=== PATIENT | female | born 1970 | race Caucasian/White ===

== ENCOUNTER 2023-08-13 14:09 | Emergency (ER) | payer MEDICARE, SELFPAY ==
[2023-08-13 14:18] VITALS: BP 103/58; PULSE 73; RESP 18; TEMP 36.6; O2SAT 100; BMI 25.8
--- NOTE | 2023-08-13 14:27 | ED_ITS ---
HPI - General Adult General Chief complaint: Extremity Problem, Nontraumatic Stated complaint: HIP PAIN, RIGHT- NON TRAUMATIC Time Seen by Provider: 08/13/23 14:22 Source: patient Mode of arrival: walk-in Limitations: no limitations History of Present Illness HPI narrative: Patient is a 53-year-old female presents to the emergency department for pain in the right anterior hip and proximal thigh for the last several months. She states pain radiates around the right hip. She has a history of RA and wonders if it may be an exacerbation of her RA. 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 She denies any falls or injuries. No numbness or tingling. No medications taken prior to arrival today. Related Data Home Medications ?Medication ?Instructions ?Recorded ?Confirmed calcium carbonate 600 mg calcium 1,500 mg PO DAILY 08/13/23 08/13/23 (1,500 mg) tablet (Calcium) cholecalciferol (vitamin D3) 250 10,000 unit PO DAILY 08/13/23 08/13/23 mcg (10,000 unit) capsule citalopram 40 mg tablet 40 mg PO DAILY 08/13/23 08/13/23 levothyroxine 88 mcg tablet 88 mcg PO DAILY 08/13/23 08/13/23 mecobalamin (vitamin B12) 500 mcg 500 mcg PO DAILY 08/13/23 08/13/23 chewable tablet omeprazole 20 mg capsule,delayed 20 mg PO DAILY 08/13/23 08/13/23 release thiamine HCl (vitamin B1) 100 mg 100 mg PO TID 08/13/23 08/13/23 tablet Previous Rx's ?Medication ?Instructions ?Recorded methocarbamol 750 mg tablet 750 mg PO TID PRN pain #20 tabs 08/13/23 methylprednisolone 4 mg tablets in See Rx Instructions .Route 08/13/23 a dose pack (Medrol (Edin)) .COMPLEX #21 ea Allergies Allergy/AdvReac Type Severity Reaction Status Date / Time No Known Drug Allergies Allergy Verified 08/13/23 14:20 Review of Systems ROS Constitutional Denies: fever or chills Ears, nose, mouth, and throat Denies: throat pain Cardiovascular Denies: chest pain Respiratory Denies: shortness of breath Gastrointestinal Denies: nausea or vomiting Musculoskeletal Reports: extremity pain and joint pain; Denies: back pain, neck pain or extremity swelling Integumentary/Breast Denies: rash Neurological Denies: headache Hematologic/Lymphatic Denies: easy bruising or easy bleeding Exam Narrative Exam Narrative: Gen.: Awake, alert, in no distress Head: Normocephalic, atraumatic ENT: Moist mucous membranes Respiratory: No respiratory distress Extremities: Moves extremities equally, Patient with full range of motion at the right hip, normal dorsiflexion and plantarflexion in the bilateral feet with no decrease in sensation to the medial thighs, diffuse minimal tenderness of the right lateral hip Psych: Normal mood and affect Neuro: No focal neuro deficit Skin: Warm, dry, intact Constitutional Vital Signs, click to edit/add: Last Vital Signs Temp 97.8 F 08/13/23 14:18 Pulse 73 08/13/23 14:18 Resp 18 08/13/23 14:18 BP 103/58 08/13/23 14:18 Pulse Ox 100 08/13/23 14:18 O2 Del Method Room Air 08/13/23 14:18 Course Vital Signs Vital signs: Vital Signs Temperature 97.8 F 08/13/23 14:18 Pulse Rate 73 08/13/23 14:18 Respiratory Rate 18 08/13/23 14:18 Blood Pressure 103/58 08/13/23 14:18 Pulse Oximetry 100 08/13/23 14:18 Oxygen Delivery Method Room Air 08/13/23 14:18 Temperature 97.8 F 08/13/23 14:18 Pulse Rate 73 08/13/23 14:18 Respiratory Rate 18 08/13/23 14:18 Blood Pressure 103/58 08/13/23 14:18 Pulse Oximetry 100 08/13/23 14:18 Oxygen Delivery Method Room Air 08/13/23 14:18 Medical Decision Making MDM Narrative Medical decision making narrative: X-rays with no evidence of acute process. Patient will be placed on a steroid taper and muscle relaxant to follow-up with orthopedics next week as scheduled. Return to the emergency department if symptoms change or worsen. Medical Records Medical records reviewed: Yes I reviewed the patient's medical records Imaging Data XR hip: Attestation: I have reviewed the pertinent imaging results. Radiologist's impression: ITS Impressions Hip/Pelvis X-Ray 08/13/23 14:51 IMPRESSION: No acute findings Electronically authenticated by: YORDY GRAFF Date: 08/13/2023 15:24 Discharge Plan Discharge Stand Alone Forms: Portal Instructions Chief Complaint: Extremity Problem, Nontraumatic Clinical Impression: Acute pain of right hip Patient Disposition: Home, Self-Care Condition: Good Prescriptions / Home Meds: New methocarbamol 750 mg tablet 750 mg PO TID PRN (Reason: pain) Qty: 20 0RF methylprednisolone [Medrol (Edin)] 4 mg tablets,dose pack See Rx Instructions .ROUTE .COMPLEX Qty: 21 0RF Rx Instructions: Taper as directed No Action citalopram 40 mg tablet 40 mg PO DAILY levothyroxine 88 mcg tablet 88 mcg PO DAILY omeprazole 20 mg capsule,delayed release(DR/EC) 20 mg PO DAILY calcium carbonate [Calcium 600] 600 mg calcium (1,500 mg) tablet 1,500 mg PO DAILY cholecalciferol (vitamin D3) 250 mcg (10,000 unit) capsule 10,000 unit PO DAILY thiamine HCl (vitamin B1) 100 mg tablet 100 mg PO TID mecobalamin (vitamin B12) 500 mcg tablet,chewable 500 mcg PO DAILY Print Language: Setswana Instructions: Arthralgia (ED), Hip Pain (ED) Additional Instructions: Follow up with ortho as scheduled Referrals: ASHLEY HUIZAR [Primary Care Provider] - 1 week
[2023-08-13] MEDS: KETOROLAC TROMETHAMINE 10 MG TABLET PO (14:36)
[2023-08-13] MEDS: METHYLPREDNISOLONE SOD SUCC PF 125 MG/2 ML VIAL IM (14:36)
--- NOTE | 2023-08-13 14:51 | XR_ITS ---
The [place] [id number] Patient Name: FRANKIE SANDOVAL MRN: [id number] date: 1970 Sex: F Assigned Patient Location: ED.MAIN Current Patient Location: ER Accession/Order Number: [id number] Exam Date: 08/13/2023 14:45 Report Date: 08/13/2023 15:24 At the request of: SUELLEN COOK Procedure: XR hip RT 2V w/ pelvis EXAM: XR hip RT 2V w/ pelvis TECHNIQUE: AP pelvis. AP and lateral views right hip. HISTORY: Right hip pain COMPARISON: None. FINDINGS: No acute fracture or dislocation. Soft tissues are unremarkable. There are no significant arthritic changes. XR/XR hip RT 2V w/ pelvis IMPRESSION: No acute findings Electronically authenticated by: YORDY GRAFF Date: 08/13/2023 15:24
== END 2023-08-13 15:45 | disposition home or self-care (01) ==
PROVIDERS: Emergency Provider Emergency Medicine; PCP Family Medicine
DX: M25.551 Pain in right hip (principal); M06.9 Rheumatoid arthritis, unspecified; Z79.899 Other long term (current) drug therapy; Z79.890 Hormone replacement therapy
CPT/HCPCS: 73502; 96372; 99284; J2930

== ENCOUNTER 2024-05-28 15:05 | Emergency (ER) | payer MEDICARE, SELFPAY ==
[2024-05-28 15:39] VITALS: BP 82/42; PULSE 100; TEMP 36.7; O2SAT 100; BMI 28.2
--- NOTE | 2024-05-28 17:02 | XR_ITS ---
The [address] [address] Patient Name: FRANKIE SANDOVAL MRN: [id number] date: 1970 Sex: F Assigned Patient Location: ER Current Patient Location: Accession/Order Number: [id number] Exam Date: 05/28/2024 17:12 Report Date: 05/28/2024 20:54 At the request of: SUELLEN COOK Procedure: XR chest 2V EXAM: XR chest 2V HISTORY: Cough COMPARISON: None. TECHNIQUE: Chest X-ray AP, 1 view FINDINGS: Support devices: None. Lungs/pleura: No consolidation, effusion, or pneumothorax. Heart and mediastinum: Normal contours. Bones: No acute abnormality identified. XR/XR chest 2V Impression: No radiographic evidence of acute cardiopulmonary process. Electronically authenticated by: HAL ZAMORANO Date: 05/28/2024 20:54
--- NOTE | 2024-05-28 17:21 | ED_ITS ---
HPI HPI - General Adult General Chief complaint: Upper Respiratory Infection Stated complaint: congestion, diarrhea Time Seen by Provider: 05/28/24 17:15 Source: patient Mode of arrival: walk-in History of Present Illness HPI narrative: Patient is a 53-year-old female who presents to the emergency department for evaluation of flulike illness. States for several weeks she has had sinus congestion and nasal drainage. She was initially on cefdinir that was prescribed by her PCP office, she had no improvement of her symptoms so she was given additional azithromycin. She states she called the PCP office today to report that her mother was also ill and that her mother needed antibiotics but told the office that she in the last day has been having headache, body aches, hot and cold chills as well as vomiting and diarrhea. Her PCP office did not test her for any respiratory illnesses, however they suggested that the patient come to the emergency department to be evaluated. They suggested that she may need to be tested. She has not had any objective fevers. She denies blood in her stool. She has mild abdominal cramping. She continues to have sinus congestion, nonproductive coughing. Related Data Home Medications ?Medication ?Instructions ?Recorded ?Confirmed calcium carbonate (Calcium 600) 1,500 mg PO DAILY 08/13/23 05/28/24 cholecalciferol (vitamin D3) 250 10,000 unit PO DAILY 08/13/23 05/28/24 mcg (10,000 unit) capsule citalopram 40 mg tablet 40 mg PO DAILY 08/13/23 05/28/24 levothyroxine 88 mcg tablet 88 mcg PO DAILY 08/13/23 05/28/24 mecobalamin (vitamin B12) 500 mcg 500 mcg PO DAILY 08/13/23 05/28/24 chewable tablet omeprazole 20 mg capsule,delayed 20 mg PO DAILY 08/13/23 05/28/24 release thiamine HCl (vitamin B1) 100 mg 100 mg PO TID 08/13/23 08/13/23 tablet azithromycin 250 mg tablet mg 05/28/24 Previous Rx's ?Medication ?Instructions ?Recorded methocarbamol 750 mg tablet 750 mg PO TID PRN pain #20 tabs 08/13/23 methylprednisolone 4 mg tablets in See Rx Instructions .Route 08/13/23 a dose pack (Medrol (Edin)) .COMPLEX #21 ea dexamethasone 4 mg tablet 4 mg PO BID 5 days #10 tabs 05/28/24 ondansetron 4 mg disintegrating 4 mg PO Q6H PRN nausea and 05/28/24 tablet vomiting #12 tabs Allergies Allergy/AdvReac Type Severity Reaction Status Date / Time No Known Drug Allergies Allergy Verified 05/28/24 15:39 Opioid HPI Opioid Management Most Recent Opioid Data: Last Pain Scale 6 08/13/23 14:36 08/13/23 Review of Systems ROS Constitutional Reports: chills; Denies: fever Ears, nose, mouth, and throat Reports: nasal discharge and nasal congestion; Denies: throat pain Cardiovascular Denies: chest pain Respiratory Reports: cough; Denies: shortness of breath Gastrointestinal Reports: abdominal pain, nausea, vomiting and diarrhea Musculoskeletal Denies: back pain Integumentary/Breast Reports: rash Neurological Denies: numbness in extremities or weakness in extremities Hematologic/Lymphatic Denies: easy bruising or easy bleeding PFSH PFSH Social History Little interest or pleasure in doing things: not at all Feeling down, depressed, or hopeless: not at all Exam Narrative Exam Narrative: Gen.: Awake, alert, in no distress Head: Normocephalic, atraumatic ENT: Moist mucous membranes Respiratory: No respiratory distress, lungs clear bilaterally Cardio: Regular rate and rhythm Gastrointestinal: Abdomen is soft, nondistended and nontender to palpation Extremities: Moves extremities equally Psych: Normal mood and affect Neuro: No focal neuro deficit Skin: Warm, dry, intact Constitutional Vital Signs, click to edit/add: Last Vital Signs Temp 98.1 F 05/28/24 15:39 Pulse 100 H 05/28/24 15:39 Resp 16 05/28/24 15:39 BP 82/42 L 05/28/24 15:39 Pulse Ox 100 05/28/24 15:39 O2 Del Method Room Air 05/28/24 15:39 Course Vital Signs Vital signs: Vital Signs Temperature 98.1 F 05/28/24 15:39 Pulse Rate 100 H 05/28/24 15:39 Respiratory Rate 16 05/28/24 15:39 Blood Pressure 82/42 L 05/28/24 15:39 Pulse Oximetry 100 05/28/24 15:39 Oxygen Delivery Method Room Air 05/28/24 15:39 Temperature 98.1 F 05/28/24 15:39 Pulse Rate 100 H 05/28/24 15:39 Respiratory Rate 16 05/28/24 15:39 Blood Pressure 82/42 L 05/28/24 15:39 Pulse Oximetry 100 05/28/24 15:39 Oxygen Delivery Method Room Air 05/28/24 15:39 Medical Decision Making MDM Narrative Medical decision making narrative: Patient is treated with IV fluids, Zofran, Levsin. Her COVID test is positive and labs are otherwise unremarkable. Her blood pressure improved prior to IV fluid administration, she is not dizzy or syncopal. She has no complaints of chest pain or shortness of breath. She is discharged home with Decadron and Zofran, follow-up with PCP and return to the emergency department if symptoms change or worsen. SHARED APC VISIT, PHYSICIAN ATTESTATION: [id number] I performed a substantive part of the MDM during the patient?s E/M visit. I personally evaluated and examined the patient. I personally made or approved the documented management plan and acknowledge its risk of complications. Medical Records Medical records reviewed: Yes I reviewed the patient's medical records Lab Data Lab results reviewed: Yes I reviewed the patient's lab results Labs: Lab Results 05/28/24 05/28/24 Range/Units 17:25 18:12 WBC 7.1 (4.0-11.0) 10^3/uL RBC 4.89 (4.20-5.40) 10^6/uL Hgb 14.7 (12.0-16.0) g/dL Hct 43.3 (36.0-48.0) % MCV 88.5 (81.0-99.0) fL MCH 30.1 (26.7-34.0) pg MCHC 33.9 (29.9-35.2) g/dL RDW 11.8 (11.0-15.0) % Plt Count 260 (150-450) 10^3/uL MPV 11.1 (9.5-13.5) fL Neut % (Auto) 56.5 (43.0-75.0) % Lymph % (Auto) 35.7 (20.5-60.0) % [place] % (Auto) 6.3 (1.7-12.0) % Eos % (Auto) 0.7 L (0.9-7.0) % Baso % (Auto) 0.7 (0.2-2.0) % Neut # (Auto) 4.0 (1.4-6.5) 10^3/uL Lymph # (Auto) 2.5 (1.2-3.8) 10^3/uL [place] # (Auto) 0.5 (0.3-0.8) 10^3/uL Eos # (Auto) 0.1 (0.0-0.7) 10^3/uL Baso # (Auto) 0.1 (0.0-0.1) 10^3/uL Abs Immat Gran (auto) 0.01 (0.00-0.03) 10^3/uL Imm/Tot Granulo (auto) 0.1 (0.0-0.5) % VBG pH 7.435 H (7.330-7.430) VBG pCO2 40.2 (40.0-52.0) mmHg Sodium 142 (136-145) mmol/L Potassium 3.7 (3.5-5.1) mmol/L Chloride 105 (98-107) mmol/L Carbon Dioxide 28.9 (21.0-32.0) mmol/L Anion Gap 11.8 BUN 9.0 (7.0-18.0) mg/dL Creatinine 0.82 (0.55-1.02) mg/dL Est GFR ( Amer) >60 (>=60 mL/min/1.73m^2) Est GFR (Non-Af Amer) >60 (>=60 mL/min/1.73m^2) BUN/Creatinine Ratio 11.0 Glucose 99 (74-106) mg/dL Lactate 0.7 (0.4-2.0) mmol/L Calcium 9.0 (8.5-10.1) mg/dL Total Bilirubin 0.5 (0.2-1.0) mg/dL AST 26 (15-37) U/L ALT 33 (14-59) U/L Alkaline Phosphatase 80 (46-116) U/L Troponin I High Sens <4.0 L (4.0-51.3) pg/mL Total Protein 6.7 (6.4-8.2) g/dL Albumin 3.6 (3.4-5.0) g/dL Globulin 3.1 g/dL Albumin/Globulin Ratio 1.2 Influenza Type A Ag Negative Influenza Type B Ag Negative SARS-CoV-2 Ag (CV2AG) Positive A (NEGATIVE) Imaging Data Chest x-ray: Attestation: I have reviewed the pertinent imaging results. Discharge Plan Discharge Chief Complaint: Upper Respiratory Infection Clinical Impression: COVID-19, Vomiting and diarrhea Patient Disposition: Home, Self-Care Time of Disposition Decision: 18:30 Condition: Good Prescriptions / Home Meds: New dexamethasone 4 mg tablet 4 mg PO BID 5 Days Qty: 10 0RF ondansetron 4 mg tablet,disintegrating 4 mg PO Q6H PRN (Reason: nausea and vomiting) Qty: 12 0RF No Action citalopram 40 mg tablet 40 mg PO DAILY levothyroxine 88 mcg tablet 88 mcg PO DAILY omeprazole 20 mg capsule,delayed release(DR/EC) 20 mg PO DAILY calcium carbonate [Calcium 600] 600 mg calcium (1,500 mg) tablet 1,500 mg PO DAILY cholecalciferol (vitamin D3) 250 mcg (10,000 unit) capsule 10,000 unit PO DAILY thiamine HCl (vitamin B1) 100 mg tablet 100 mg PO TID mecobalamin (vitamin B12) 500 mcg tablet,chewable 500 mcg PO DAILY methocarbamol 750 mg tablet 750 mg PO TID PRN (Reason: pain) Qty: 20 0RF methylprednisolone [Medrol (Edin)] 4 mg tablets,dose pack See Rx Instructions .ROUTE .COMPLEX Qty: 21 0RF Rx Instructions: Taper as directed azithromycin 250 mg tablet Print Language: Swedish Instructions: Acute Nausea and Vomiting (ED), Acute Diarrhea (ED), How to Recover from COVID-19 at Home (ED) Referrals: ASHLEY HUIZAR [Primary Care Provider] - 1 week
[2024-05-28] MEDS: HYOSCYAMINE SULFATE 0.125 MG TAB.SUBL SL (17:32)
[2024-05-28] MEDS: ONDANSETRON PF 4 MG/2 ML VIAL IV (17:32)
[2024-05-28] MEDS: 0.9 % SODIUM CHLORIDE 1,000 ML 999 ML IV (17:32)
[2024-05-28 17:53] LABS: Basophils Absolute Auto 0.1 10^3/uL (0.0-0.1); Basophils Percent Auto 0.7 % (0.2-2.0); Eosinophils Absolute Auto 0.1 10^3/uL (0.0-0.7); Eosinophils Percent Auto 0.7 % (0.9-7.0); Hematocrit 43.3 % (36.0-48.0); Hemoglobin 14.7 g/dL (12.0-16.0); Immature Granulocytes Abs Auto 0.01 10^3/uL (0.00-0.03); Immature Granulocytes Pct Auto 0.1 % (0.0-0.5); Lymphocytes Absolute Auto 2.5 10^3/uL (1.2-3.8); Lymphocytes Percent Auto 35.7 % (20.5-60.0); Mean Corpuscular HGB Conc 33.9 g/dL (29.9-35.2); Mean Corpuscular Hemoglobin 30.1 pg (26.7-34.0); Mean Corpuscular Volume 88.5 fL (81.0-99.0); Mean Platelet Volume 11.1 fL (9.5-13.5); Monocytes Absolute Auto 0.5 10^3/uL (0.3-0.8); Monocytes Percent Auto 6.3 % (1.7-12.0); Neutrophils Percent Auto 56.5 % (43.0-75.0); Platelet Count 260 10^3/uL (150-450); Red Blood Count 4.89 10^6/uL (4.20-5.40); Red Cell Distribution Width 11.8 % (11.0-15.0); White Blood Count 7.1 10^3/uL (4.0-11.0)
[2024-05-28 18:09] LABS: Influenza Virus A Antigen Negative; Influenza Virus B Antigen Negative; Internal Control Within Normal Limits; SARS-CoV-2 Ag POSITIVE (NEGATIVE)
[2024-05-28 18:17] LABS: Lactate/Lactic Acid 0.7 mmol/L (0.4-2.0)
[2024-05-28 18:18] LABS: Alanine Aminotransferase 33 U/L (14-59); Albumin Globulin Ratio 1.2; Albumin Level 3.6 g/dL (3.4-5.0); Alkaline Phosphatase 80 U/L (46-116); Anion Gap 11.8; Aspartate Amino Transferase 26 U/L (15-37); Bilirubin Total 0.5 mg/dL (0.2-1.0); Carbon Dioxide 28.9 mmol/L (21.0-32.0); Chloride 105 mmol/L (98-107); Estimated GFR (African America >60 (>=60 mL/min/1.73m^2); Estimated GFR (Non-African Ame >60 (>=60 mL/min/1.73m^2); Globulin 3.1 g/dL; Glucose 99 mg/dL (74-106); Potassium 3.7 mmol/L (3.5-5.1); Sodium 142 mmol/L (136-145); Total Protein 6.7 g/dL (6.4-8.2); Troponin I High Sensitivity <4.0 pg/mL (4.0-51.3)
[2024-05-28 18:26] LABS: PCO2 VBG 40.2 mmHg (40.0-52.0); pH VBG 7.435 (7.330-7.430)
[2024-05-28 18:42] VITALS: BP 102/70; PULSE 54; O2SAT 97
[2024-05-28 19:04] VITALS: BP 110/73; PULSE 54; O2SAT 98
== END 2024-05-28 19:04 | disposition home or self-care (01) ==
PROVIDERS: Physician Assistant; Emergency Provider Emergency Medicine; PCP Family Medicine
DX: U07.1 COVID-19 (principal); R11.10 Vomiting, unspecified; R19.7 Diarrhea, unspecified
CPT/HCPCS: 36415; 71046; 80053; 82800; 83605; 84484; 85025; 87040; 87804; 87811; 96361; 96374; 99285; J2405

== ENCOUNTER 2024-06-03 11:50 | Emergency (ER) | payer MEDICARE, MEDICAID, SELFPAY ==
[2024-06-03 11:56] VITALS: BP 101/44; PULSE 73; TEMP 36.4; O2SAT 99; BMI 28.2
[2024-06-03] MEDS: 0.9 % SODIUM CHLORIDE 1,000 ML 1000 ML IV (12:24)
[2024-06-03] MEDS: KETOROLAC TROMETHAMINE 30 MG/ML VIAL 15 MG IVP (12:24)
[2024-06-03 12:25] LABS: Basophils Absolute Auto 0.1 10^3/uL (0.0-0.1); Basophils Percent Auto 0.9 % (0.2-2.0); Eosinophils Absolute Auto 0.1 10^3/uL (0.0-0.7); Eosinophils Percent Auto 1.2 % (0.9-7.0); Hematocrit 40.7 % (36.0-48.0); Hemoglobin 13.7 g/dL (12.0-16.0); Immature Granulocytes Abs Auto 0.02 10^3/uL (0.00-0.03); Immature Granulocytes Pct Auto 0.3 % (0.0-0.5); Lymphocytes Absolute Auto 2.8 10^3/uL (1.2-3.8); Lymphocytes Percent Auto 35.6 % (20.5-60.0); Mean Corpuscular HGB Conc 33.7 g/dL (29.9-35.2); Mean Corpuscular Hemoglobin 29.9 pg (26.7-34.0); Mean Corpuscular Volume 88.9 fL (81.0-99.0); Mean Platelet Volume 10.8 fL (9.5-13.5); Monocytes Absolute Auto 0.5 10^3/uL (0.3-0.8); Monocytes Percent Auto 6.8 % (1.7-12.0); Neutrophils Absolute Auto 4.3 10^3/uL (1.4-6.5); Neutrophils Percent Auto 55.2 % (43.0-75.0); Platelet Count 248 10^3/uL (150-450); Red Blood Count 4.58 10^6/uL (4.20-5.40); Red Cell Distribution Width 11.7 % (11.0-15.0); White Blood Count 7.8 10^3/uL (4.0-11.0)
[2024-06-03 12:36] LABS: Alanine Aminotransferase 23 U/L (14-59); Albumin Globulin Ratio 1.1; Albumin Level 3.4 g/dL (3.4-5.0); Alkaline Phosphatase 73 U/L (46-116); Anion Gap 12.8; Aspartate Amino Transferase 13 U/L (15-37); BUN Creatinine Ratio 12.8; Bilirubin Total 0.3 mg/dL (0.2-1.0); Calcium 8.7 mg/dL (8.5-10.1); Carbon Dioxide 29.2 mmol/L (21.0-32.0); Chloride 105 mmol/L (98-107); Estimated GFR (African America >60 (>=60 mL/min/1.73m^2); Estimated GFR (Non-African Ame >60 (>=60 mL/min/1.73m^2); Globulin 3.1 g/dL; Glucose 79 mg/dL (74-106); Sodium 143 mmol/L (136-145); Total Protein 6.5 g/dL (6.4-8.2)
[2024-06-03 12:49] VITALS: BP 115/66; PULSE 62; O2SAT 99
--- NOTE | 2024-06-03 12:59 | ED.GENADUL1 ---
HPI HPI - General Adult General Chief complaint: Upper Respiratory Infection Stated complaint: ABDOMINAL PAIN, HEADACHE, COVID +, FEVER, SHORT OF Time Seen by Provider: 06/03/24 11:58 Mode of arrival: walk-in History of Present Illness HPI narrative: Patient presents to ED complaining of not feeling well. She was diagnosed with COVID on and is still having symptoms of congestion feeling rundown and not feeling well. She said she thought she was feeling better yesterday and then today she was having diarrhea and congestion and again not feeling well. She is alert and oriented no respiratory distress. Her blood pressure was borderline low. She does report diarrhea and decreased appetite. No chest pain, mild productive cough. No respiratory distress. No other complaints at this time Related Data Home Medications ?Medication ?Instructions ?Recorded ?Confirmed calcium carbonate (Calcium 600) 1,500 mg PO DAILY 08/13/23 05/28/24 cholecalciferol (vitamin D3) 250 10,000 unit PO DAILY 08/13/23 05/28/24 mcg (10,000 unit) capsule citalopram 40 mg tablet 40 mg PO DAILY 08/13/23 05/28/24 levothyroxine 88 mcg tablet 88 mcg PO DAILY 08/13/23 05/28/24 mecobalamin (vitamin B12) 500 mcg 500 mcg PO DAILY 08/13/23 05/28/24 chewable tablet omeprazole 20 mg capsule,delayed 20 mg PO DAILY 08/13/23 05/28/24 release thiamine HCl (vitamin B1) 100 mg 100 mg PO TID 08/13/23 08/13/23 tablet azithromycin 250 mg tablet mg 05/28/24 Previous Rx's ?Medication ?Instructions ?Recorded methocarbamol 750 mg tablet 750 mg PO TID PRN pain #20 tabs 08/13/23 methylprednisolone 4 mg tablets in See Rx Instructions .Route 08/13/23 a dose pack (Medrol (Edin)) .COMPLEX #21 ea dexamethasone 4 mg tablet 4 mg PO BID 5 days #10 tabs 05/28/24 ondansetron 4 mg disintegrating 4 mg PO Q6H PRN nausea and 05/28/24 tablet vomiting #12 tabs Allergies Allergy/AdvReac Type Severity Reaction Status Date / Time No Known Drug Allergies Allergy Verified 05/28/24 15:39 Opioid HPI Opioid Management Most Recent Opioid Data: Last Pain Scale 6 08/13/23 14:36 08/13/23 Review of Systems ROS Status of ROS 10 or more systems reviewed and unremarkable except as noted in history and below [facility] Social History Little interest or pleasure in doing things: not at all Feeling down, depressed, or hopeless: not at all Exam Narrative Exam Narrative: Time Seen: [] Vital Signs: [Per nurse's notes.] General: [Alert] Skin: [Warm, dry, no rash.] Head: [Normocephalic, atraumatic.] Neck: [Supple, trachea midline.] Eye: [Pupils are equal, round and reactive to light, extraocular movements are intact, normal conjunctiva.] Ears, nose, mouth and throat: oral mucosa moist. Cardiovascular: [Regular rate and rhythm, no murmur.] Respiratory: [Lungs are clear to auscultation, respirations are non-labored, breath sounds are equal.] Chest wall: [No tenderness, no deformity.] Gastrointestinal: [Soft, nontender, non distended, normal bowel sounds.] MSK: 5 out of 5 muscle strength x 4 extremities no calf pain or edema Lymphatics: [No lymphadenopathy.] Psychiatric: [Cooperative, appropriate mood & affect.] Neurological: [Alert and oriented to person, place, time, and situation, no focal neurological deficit observed.] Constitutional Vital Signs, click to edit/add: Last Vital Signs Temp 97.6 F 06/03/24 11:56 Pulse 62 06/03/24 12:49 Resp 18 06/03/24 12:49 BP 115/66 06/03/24 12:49 Pulse Ox 99 06/03/24 12:49 O2 Del Method Room Air 06/03/24 11:56 Course Vital Signs Vital signs: Vital Signs Temperature 97.6 F 06/03/24 11:56 Pulse Rate 73 06/03/24 11:56 Respiratory Rate 18 06/03/24 11:56 Blood Pressure 101/44 L 06/03/24 11:56 Pulse Oximetry 99 06/03/24 11:56 Oxygen Delivery Method Room Air 06/03/24 11:56 Temperature 97.6 F 06/03/24 11:56 Pulse Rate 62 06/03/24 12:49 Respiratory Rate 18 06/03/24 12:49 Blood Pressure 115/66 06/03/24 12:49 Pulse Oximetry 99 06/03/24 12:49 Oxygen Delivery Method Room Air 06/03/24 11:56 Medical Decision Making MDM Narrative Medical decision making narrative: Patient's labs are negative for any acute findings. She was hydrated with fluids and given Toradol and her blood pressure did improve. Blood pressure and heart rate are normal, no fever no respiratory distress. Oxygen saturation 99%. Lungs were clear on exam bilaterally. Patient is most likely still dealing with COVID symptoms since she was diagnosed less than a week ago. Instructed to hydrate take Tylenol and Motrin and rest at home. Patient comfortable care plan for home Differential Diagnosis Differential Diagnosis: COVID, sinusitis, pneumonia Lab Data Lab results reviewed: Yes I reviewed the patient's lab results Labs: Lab Results 06/03/24 Range/Units 12:13 WBC 7.8 (4.0-11.0) 10^3/uL RBC 4.58 (4.20-5.40) 10^6/uL Hgb 13.7 (12.0-16.0) g/dL Hct 40.7 (36.0-48.0) % MCV 88.9 (81.0-99.0) fL MCH 29.9 (26.7-34.0) pg MCHC 33.7 (29.9-35.2) g/dL RDW 11.7 (11.0-15.0) % Plt Count 248 (150-450) 10^3/uL MPV 10.8 (9.5-13.5) fL Neut % (Auto) 55.2 (43.0-75.0) % Lymph % (Auto) 35.6 (20.5-60.0) % [place] % (Auto) 6.8 (1.7-12.0) % Eos % (Auto) 1.2 (0.9-7.0) % Baso % (Auto) 0.9 (0.2-2.0) % Neut # (Auto) 4.3 (1.4-6.5) 10^3/uL Lymph # (Auto) 2.8 (1.2-3.8) 10^3/uL [place] # (Auto) 0.5 (0.3-0.8) 10^3/uL Eos # (Auto) 0.1 (0.0-0.7) 10^3/uL Baso # (Auto) 0.1 (0.0-0.1) 10^3/uL Abs Immat Gran (auto) 0.02 (0.00-0.03) 10^3/uL Imm/Tot Granulo (auto) 0.3 (0.0-0.5) % Sodium 143 (136-145) mmol/L Potassium 4.0 (3.5-5.1) mmol/L Chloride 105 (98-107) mmol/L Carbon Dioxide 29.2 (21.0-32.0) mmol/L Anion Gap 12.8 BUN 10.0 (7.0-18.0) mg/dL Creatinine 0.78 (0.55-1.02) mg/dL Est GFR ( Amer) >60 (>=60 mL/min/1.73m^2) Est GFR (Non-Af Amer) >60 (>=60 mL/min/1.73m^2) BUN/Creatinine Ratio 12.8 Glucose 79 (74-106) mg/dL Calcium 8.7 (8.5-10.1) mg/dL Total Bilirubin 0.3 (0.2-1.0) mg/dL AST 13 L (15-37) U/L ALT 23 (14-59) U/L Alkaline Phosphatase 73 (46-116) U/L Total Protein 6.5 (6.4-8.2) g/dL Albumin 3.4 (3.4-5.0) g/dL Globulin 3.1 g/dL Albumin/Globulin Ratio 1.1 Discharge Plan Discharge Chief Complaint: Upper Respiratory Infection Clinical Impression: COVID-19 Patient Disposition: Home, Self-Care Time of Disposition Decision: 12:50 Condition: Good Mode of Transportation: Private Vehicle Prescriptions / Home Meds: No Action citalopram 40 mg tablet 40 mg PO DAILY levothyroxine 88 mcg tablet 88 mcg PO DAILY omeprazole 20 mg capsule,delayed release(DR/EC) 20 mg PO DAILY calcium carbonate [Calcium 600] 600 mg calcium (1,500 mg) tablet 1,500 mg PO DAILY cholecalciferol (vitamin D3) 250 mcg (10,000 unit) capsule 10,000 unit PO DAILY thiamine HCl (vitamin B1) 100 mg tablet 100 mg PO TID mecobalamin (vitamin B12) 500 mcg tablet,chewable 500 mcg PO DAILY methocarbamol 750 mg tablet 750 mg PO TID PRN (Reason: pain) Qty: 20 0RF methylprednisolone [Medrol (Edin)] 4 mg tablets,dose pack See Rx Instructions .ROUTE .COMPLEX Qty: 21 0RF Rx Instructions: Taper as directed azithromycin 250 mg tablet dexamethasone 4 mg tablet 4 mg PO BID 5 Days Qty: 10 0RF ondansetron 4 mg tablet,disintegrating 4 mg PO Q6H PRN (Reason: nausea and vomiting) Qty: 12 0RF Print Language: French Instructions: COVID-19 (Coronavirus Disease 2019) (ED) Referrals: ASHLEY HUIZAR [Primary Care Provider] - 1 week
== END 2024-06-03 13:08 | disposition home or self-care (01) ==
PROVIDERS: Emergency Provider Emergency Medicine; PCP Family Medicine
DX: U07.1 COVID-19 (principal)
CPT/HCPCS: 36415; 80053; 85025; 96361; 96374; 99284; J1885

== ENCOUNTER 2024-07-13 08:47 | Emergency (ER) | payer MEDICARE, MEDICAID, SELFPAY ==
[2024-07-13 08:54] VITALS: BP 101/45; PULSE 71; TEMP 37; O2SAT 98; BMI 28.5
--- OUTSIDE RECORDS SUMMARY | 2024-07-13 09:12 | XMS_ITS | CCD ---
Author Organization [facility] Care Team Providers Care Appliance Technician Name Role Phone DR LANI PEACOCK Admitting Unavailable AYUSH, DR GARIBAY Attending Unavailable REQUEST, DR SILVERIO LISTED Primary Care Unavaila ble AYUSH, DR GARIBAY Consulting Unavailable AYUSH, DR GARIBAY Consulting Unavailable AYUSH, DR GARIBAY Admitting Unavailable AYUSH, DR GARIBAY Attending Unavailable BHUPENDRA, DR ASHLEY Kaiser Primary Care Unavailable LAURI PHILIPPE Attending Unavailable Ashley Mane MD Primary Care Provider TARA SMITH Attending Unavailable ASHLEY MANE Referring Unavailable ASHLEY MANE Primary Care Unavailable Ashley Mane MD Primary Care Provider [phone] TARA SMITH Attending Unavailable ASHLEY MANE Referring Unavailable ASHLEY MANE Primary Care Unavailable TAAR SMITH Attending Unavailable ASHLEY MANE Referring Unavailable ASHLEY MANE Primary Care Unavailable Medications Current Medications Medication Drug Class(es) Dates Sig (Normalized) Sig (Original) amitriptyline hydrochloride 75 mg oral tablet (6 sources) Tricyclic Antidepressant Start: 03-05-2024 take 1 tablet by mouth once daily in the evening amitriptyline (ELAVIL) 75 mg tablet Indications: Fibromyalgia TAKE ONE TABLET BY MOUTH ONCE NIGHTLY AT 8 PM. 90 tablet 3 03/05/2024 Active Start: 02-24-2024 End: 03-05-2024 take 1 tablet by mouth once daily in the evening amitriptyline (ELAVIL) 75 mg tablet Indications: Fibromyalgia TAKE ONE TABLET BY MOUTH ONCE NIGHTLY AT 8 PM. 10 tablet 02/24/2024 03/05/2024 Discontinued (Reorder) Start: 08-02-2022 End: 08-27-2023 amitriptyline (ELAVIL) 75 mg tablet Indications: Fibromyalgia One capsule at 8 PM each night 90 tablet 1 08/27/2023 Active atorvastatin 10 mg oral tablet (4 sources) HMG-CoA Reductase Inhibitor take 1 tablet by mouth in the morning atorvastatin (LIPITOR) 10 mg tablet Take 1 tablet (10 mg total) by mouth in the morning. Active benzonatate 100 mg oral capsule (4 sources) Non-narcotic Antitussive Start: 05-16-20 22 take 1 capsule by mouth every eight hours benzonatate (TESSALON PERLES) 100 mg capsule Take 1 capsule (100 mg total) by mouth every 8 (eight) hours. 21 capsule 05/16/2022 Active Budesonide / formoterol (4 sources) Corticosteroid, beta2-Adrenergic Agonist take 2 puff(s) by inhalation in the morning budesonide-formotero l (SYMBICORT) 160-4.5 mcg/actuation inhaler Inhale 2 puffs in the morning and 2 puffs before bedtime. Active take 2 puff(s) by in halation in the morning budesonide-formoterol (SYMBICORT) 160-4. 5 mcg/actuation inhaler Inhale 2 puffs in the morning and 2 puffs before bedtime. 0 Active cefdinir 300 mg oral capsule (4 sources) Cephalosporin Antibacterial take 1 capsule by mouth in the morning, then take 1 capsule by mouth at bedtime cefDINIR (OMNICEF) 300 mg capsule Take 1 capsule (300 mg total) by mouth in the morning and 1 capsule (300 mg total) before bedtime. Active citalopram 40 mg oral tablet (4 sources) Serotonin Reuptake Inhibitor Start: 018 take 1 tablet by mouth in the morning citalopram (CeleXA) 40 mg tablet Take 1 tablet (40 mg total) by mouth in the morning. 07/17/2017 Active fluticasone propionate 0.05 mg/actuat metered dose nasal spray (4 sources) Corticosteroid Start: 022 take 1 spray(s) nasal route in the morning fluticasone propionate (FLONASE) 50 mcg/actuation nasal spray Administer 1 spray into each nostril in the morning. 16 g 11/19/2021 Active levothyroxine sodium 0.088 mg oral tablet (4 sources) l-Thyroxine take 1 tablet by mouth in the morning levothyroxine (SYNTHROID, LEVOTHROID) 88 MCG tablet Take 1 tablet (88 mcg total) by mouth in the morning. Active methocarbamol 750 mg oral tablet (6 sources) Muscle Relaxant Start: take 1 tablet by mouth once daily at bedtime methocarbamoL (ROBAXIN) 750 mg tablet Indications: Fibromyalgia Take 1 tablet (750 mg total) by mouth once daily at bedtime. 90 tablet 3 03/05/2024 Active Start: 08-02-2022 End: 03-05-2024 take 1 tablet by mouth once daily at bedtime methocarbamoL (ROBAXIN) 500 mg tablet Indications: Fibromyalgia Take 1 tablet (500 mg total) by mouth once daily at bedtime. 90 tablet 1 08/27/2023 03/05/2024 Discontinued (Reorder) aakkxmat-llwl-otsv-FA-K-hb#2 44 18-400-80 mg-mcg-mcg tablet (4 sources) gdsrhapg-qwlu-kz on-FA-K-hb#244 18-400-80 mg-mcg-mcg tablet Take by mouth. Active cpdfsjeg-prjk-zy on-FA-K-hb#244 18-400-80 mg-mcg-mcg tablet Take by mouth. 0 Active nabumetone 500 mg oral tablet (6 sources) Nonsteroidal Anti-inflammatory Drug Start: 03-05-2024 nabumetone (RELAF EN) 500 mg tablet Indications: Fibromyalgia One tablet daily for pain as needed 90 tablet 3 03/05/2024 Active Start: 08-02-2022 End: 03-05-2024 nabumetone (RELAFEN) 500 mg tablet Indications: Fibromyalgia One tablet twice daily for pain as needed 180 tablet 1 08/27/2023 03/05/2024 Discontinued (Reorder) ondansetron 4 mg disintegrating oral tablet (4 sources) Serotonin-3 Receptor Antagonist Start: 09-21-2022 take 1 tablet by mouth every eight hours as needed for nausea ondansetron ODT (ZOFRAN ODT) 4 mg disintegrating tablet Dissolve 1 tablet (4 mg total) on tongue every 8 (eight) hours as needed for nausea for up to 21 doses. 21 tablet 09/21/2022 Active promethazine hydrochloride 25 mg oral tablet (4 sources) Phenothiazine Start: 02-12-2022 take 1 tablet by mouth every six hours as needed for nausea and vomiting promethazine (PHENERGAN) 25 mg tablet Take 1 tablet (25 mg total) by mouth every 6 (six) hours as needed for nausea or vomiting. 15 tablet 07/08/2021 Active varenicline (4 sources) Partial Cholinergic Nicotinic Agonist varenicline (CHANTIX MORENO) 0.5 mg (11)- 1 mg (42) tablet Chantix Starting Month Box 0.5 mg (11)-1 mg (42) tablets in dose pack Active varenicline (OSMEL NTIX MORENO) 0.5 mg (11)- 1 mg (42) tablet Chantix Starting Month Box 0.5 mg (11)-1 mg (42) tablets in dose pack 0 Active Completed/Discontinued Medications Medication Drug Class(es) Dates Sig (Normalized) Sig (Original) Lidocaine (8 sources) Antiarrhythmic, Amide Local Anesthetic Start: 03-11-2024 End: 03-11-2024 lidocaine (XYLOCAINE) 10 mg/mL (1 %) injection 40 mg Start: 03-11-2024 End: 03-11-2024 40 mg (4 mL), intradermal, O nce, On Sat03/11/24 at 1315, For 1 dose Start: 08-27-2023 End: 08-27-2023 lidocaine (XYLOCAINE) 10 mg/ mL (1 %) injection 40 mg Start: 08-27-2023 End: 08-27-2023 lidocaine (XYLOCAINE) 10 mg/ mL (1 %) injection 40 mg 1 ml triamcinolone acetonide 40 mg/ml injection (8 sources) Corticosteroid Start: 03-11-2024 End: 03-11-2024 triamcinolone acetonide (KENALOG-40) injection 40 mg Start: 03-11-2024 End: 03-11-2024 40 mg, intra-articular, Once , On Sat03/11/24 at 1315, For 1 dose Start: 03-11-2024 End: 03-11-2024 triamcinolone acetonide (SKYLA ALOG-40) injection 40 mg Start: 03-11-2024 End: 03-11-2024 40 mg, intra-articular, Once , On Sat03/11/24 at 1315, For 1 dose Start: 08-27-2023 End: 08-27-2023 triamcinolone acetonide (SKYLA ALOG-40) injection 40 mg Start: 08-27-2023 End: 08-27-2023 triamcinolone acetonide (SKYLA ALOG-40) injection 40 mg Start: 08-27-2023 End: 08-27-2023 triamcinolone acetonide (SKYLA ALOG-40) injection 40 mg Start: 08-27-2023 End: 08-27-2023 triamcinolone acetonide (SKYLA ALOG-40) injection 40 mg Problems Active Problems Problem Classification Problem Date Documented Date Episodic/Chronic Mood disorders (1 source) Major depressive disorder, single episode, unspecified; Translations: [SHORTY DEPRESS D/O SINGLE EPIS UNS] Onset: 07-04-2021 Chronic Osteoarthritis (7 sources) Osteoarthritis of right acromioclavicular joint; Translations: [Primary osteoarthritis, right shoulder] Onset: 01-23-2022 08-27-2023 Chronic Other connective tissue disease (6 sources) Trochanteric bursitis; Translations: [Trochanteric bursitis, right hip] Onset: 01-23-2022 08-27-2023 Episodic Other ear and sense organ disorders (4 sources) Otitis externa of left ear; Translations: [Unspecified otitis externa, left ear] Onset: 08-18-2018 08-18-2018 Chronic Other upper respiratory infections (4 sources) Chronic sinusitis; Translations: [Chronic sinusitis, unspecified] Onset: 09-03-2017 Resolved: 09-09-2017 09-09-2017 Chronic Viral infection (1 source) COVID-19; Translations: [COVID-19] Onset: 07-04-2021 Past or Other Problems Problem Classification Problem Date Documented Date Episodic/Chronic Intestinal infection (1 source) Viral intestinal infection, unspecified; Translations: [VIRAL INTESTINAL INFECTION UNSPEC] Onset: 07-04-2021 Episodic Malaise and fatigue (3 sources) Other fatigue; Translations: [OTHER FATIGUE] Onset: 07-02-2021 Episodic Other aftercare (1 source) 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; Translations: [OTH LONG-TERM CURRENT DRUG THERAPY] Onset: 07-04-2021 Episodic Other connective tissue disease (6 sources) Fibromyalgia; Translations: [Fibromyalgia] Onset: 09-12-2020 08-27-2023 Episodic Other connective tissue disease (4 sources) H/O: rheumatoid arthritis; Translations: [Personal history of other diseases of the musculoskeletal system and connective tissue] Onset: 09-12-2020 09-12-2020 Episodic Other connective tissue disease (2 sources) Fibromyalgia; Translations: [Fibromyalgia] Onset: 09-12-2020 Episodic Other connective tissue disease (1 source) Trochanteric bursitis, right hip; Translations: [Trochanteric bursitis, right hip] Onset: 01-23-2022 Episodic Other ear and sense organ disorders (4 sources) Eczema of external auditory canal; Translations: [Acute eczematoid otitis externa, bilateral] Onset: 09-09-2017 09-09-2017 Episodic Other lower respiratory disease (4 sources) Dyspnea; Translations: [Shortness of breath] Onset: 04-09-2017 04-09-2017 Episodic Other lower respiratory disease (4 sources) Cough; Translations: [Cough] Onset: 04-09-2017 04-09-2017 Episodic Other screening for suspected conditions (not mental disorders or infectious disease) (4 sources) Patient encounter status; Translations: [Encounter for screening for malignant neoplasm of colon] Onset: 08-15-2020 08-15-2020 Episodic Other upper respiratory infections (4 sources) Acute sinusitis; Translations: [Other acute sinusitis] Onset: 04-03-2017 Resolved: 09-09-2017 09-09-2017 Episodic Otitis media and related conditions (8 sources) Chronic otitis media; Translations: [Otitis media, unspecified, right ear] Onset: 07-23-2017 Resolved: 09-09-2017 08-18-2018 Episodic Residual codes; unclassified (1 source) Acquired absence of other specified parts of digestive tract; Translations: [ACQ ABSENCE OTH PART DIGESTV TRACT] Onset: 07-04-2021 Episodic Residual codes; unclassified (1 source) Acquired absence of both cervix and uterus; Translations: [ACQUIRED ABSENCE BOTH CERVIX AND UTERUS] Onset: 07-04-2021 Episodic Screening and history of mental health and substance abuse codes (1 source) Personal history of nicotine dependence; Translations: [PERSONAL HISTORY OF NICOTINE DEPEND] Onset: 07-04-2021 Episodic Spondylosis; intervertebral disc disorders; other back problems (4 sources) Chronic low back pain; Translations: [Chronic bilateral low back pain without sciatica] Onset: 09-12-2020 09-12-2020 Episodic Unclassified (4 sources) Onset: 09-12-2020 09-12-2020 Urinary tract infections (1 source) Urinary tract infection, site not specified; Translations: [UTI SITE NOT SPECIFIED] Onset: 07-04-2021 Episodic Viral infection (4 sources) Acute viral disease; Translations: [Viral infection, unspecified] Onset: 04-09-2022 04-09-2022 Episodic Results Test Name Value Interpretation Reference Range Facility T4 FREE AND TSHon 01-20-2024 T4 - FREE 1.02 UG/DL Normal (0.64 - 1.79) [facility] Comment on above: Order Comment: FACIL ITY: DR MANE - OFFICE [id number] Performed By: #### T 4FTSH #### [facility] [address] [facility], [address] TSH Qn 1.82 m[IU]/L Normal (0.470 - 4.680) [facility] Comment on above: Order Comment: FACIL ITY: DR MANE - OFFICE [id number] Performed By: #### T 4FTSH #### [facility] [address] [facility], [address] [facility]on SARS-CoV-2 (COVID-19) RNA DOMINIC+probe Ql (Unsp spec) Not detected Normal NOT DETECTED [facility] Comment on above: Result Comment: This test is not yet approved or cleared by the [place] FDA. When there are no FDA-approved or cleared tests available, and other criteria are met, FDA can make tests available under an emergency access mechanism called an Emergency Use Authorization (EUA). The EUA for this test is supported by the [place] of Health and Human Service's (HHS's) declaration that circumstances exist to justify the emergency use of in vitro diagnostics for the detection and/or diagnosis of the virus that causes COVID-19. This EUA will remain in effect (meaning this test can be used) for the duration of the COVID-19 declaration justifying emergency of IVDs, unless it is terminated or revoked by FDA (after which the test may no longer be used). When diagnostic testing is negative, the possibility of a false negative should be considered in the context of a patient's recent exposures and the presence of clinical signs and symptoms consistent with SARS-CoV-2. Performed By: #### C VDTBH #### [facility] [address] [place] [address] Dr. Ewa Solano INFLUENZA A AND B AGon 05-29 [facility] SEE BELOW Normal [facility] Comment on above: Result Comment: Nega tive for Flu A protein angiten. Infection due to Flu A cannot be ruled out. Flu A angiten in the sample may be below the detection limit of the test. Performed By: #### I NFLUAB #### [facility] [address] [place] [address] Dr. [facility] Normal [facility] Comment on above: Result Comment: Nega tive for Flu B protein antigen. Infection due to Flu B cannot be ruled out. Flu B antigen in the sample may be below the detection limit of the test. Performed By: #### I NFLUAB #### [facility] [address] [place] [address] Dr. Ewa Solano INFLUENZA A AG Negative Normal NEGATIVE SEE COMMENT [facility] Comment on above: Performed By: #### I NFLUAB #### [facility] [address] [place] [address] Dr. Ewa Solano INFLUENZA B AG Negative Normal NEGATIVE SEE COMMENT [facility] Comment on above: Performed By: #### I NFLUAB #### [facility] [address] [place] [address] Dr. Ewa Solano CULTURE URINEon 07-03-2021 CULTURE URINE Culture Observations : GREATER THAN TWO ORGANISMS PRESENT. PLEASE RESUBMIT CLEAN CATCH MID-STREAM URINE IF CLINICALLY INDICATED. Normal [facility] Comment on above: Performed By: #### U RCX #### [facility] [address] [place] [address] Dr. Ewa Solano CBC AUTO DIFFon 07-02-2021 BASO # 0.0 103/ul Normal 0.0-0.1 [facility] Comment on above: Performed By: #### C BC #### [facility] [address] [address] [address] Ewa Solano Basophils/100 WBC (Bld) 0.4 % Normal 0.2-2.0 [facility] Comment on above: Performed By: #### C BC #### [facility] [address] [address] [address] Ewa Solano EO # 0.1 103/ul Normal 0.0-0.7 [facility] Comment on above: Performed By: #### C BC #### [facility] [address] [address] [address] Ewa Solano Eosinophils/100 WBC (Bld) 0.7 % Critically low 0.9-7.0 [facility] Comment on above: Performed By: #### C BC #### [facility] [address] [place] [address] Dr. Ewa Solano Erythrocyte distribution width (RBC) [Ratio] 11.9 % Normal 11.0-15.0 [facility] Comment on above: Performed By: #### C BC #### [facility] [address] [place] [address] Dr. Ewa Solano Hematocrit (Bld) [Volume fraction] 47.0 % Normal 36.0-48.0 [facility] Comment on above: Performed By: #### C BC #### [facility] [address] [place] [address] Dr. Ewa Solano Hemoglobin (Bld) [Mass/Vol] 16.2 g/dL Critically high 12.0-16.0 [facility] Comment on above: Performed By: #### C BC #### [facility] [address] [place] [address] Dr. Ewa Solano IG # 0.02 10e3/ul Normal 0.00-0.03 [facility] Comment on above: Performed By: #### C BC #### [facility] [address] [address] [address] Ewa Solano IG % 0.3 % Normal 0.0-0.5 [facility] Comment on above: Performed By: #### C BC #### [facility] [address] [place] [address] Dr. Ewa Solano LYMPH # 2.1 103/ul Normal 1.2-3.8 [facility] Comment on above: Performed By: #### C BC #### [facility] [address] [place] [address] Dr. Ewa Solano Lymphocytes/100 WBC (Bld) 30.0 % Normal 20.5-60.0 [facility] Comment on above: Performed By: #### C BC #### [facility] [address] [place] [address] Dr. Ewa Solano MANUAL DIFF REQ NO Normal [facility] Comment on above: Performed By: #### C BC #### [facility] [address] [place] [address] Dr. Ewa Solano MCH (RBC) [Entitic mass] 29.1 pg Normal 26.7-34.0 [facility] Comment on above: Performed By: #### C BC #### [facility] [address] [place] [address] Dr. Ewa Solano MCHC (RBC) [Mass/Vol] 34.5 g/dL Normal 29.9-35.2 [facility] Comment on above: Performed By: #### C BC #### [facility] [address] [place] [address] Dr. Ewa Solano MCV (RBC) [Entitic vol] 84.4 fL Normal 81.0-99.0 [facility] Comment on above: Performed By: #### C BC #### [facility] [address] [place] [address] Dr. Ewa Solano MONO # 0.4 103/ul Normal 0.3-0.8 [facility] Comment on above: Performed By: #### C BC #### [facility] [address] [place] [address] Dr. Ewa Solano Monocytes/100 WBC (Bld) 5.7 % Normal 1.7-12.0 [facility] Comment on above: Performed By: #### C BC #### [facility] [address] [place] [address] Dr. Ewa Solano NEUT # 4.4 103/ul Normal 1.4-6.5 [facility] Comment on above: Performed By: #### C BC #### [facility] [address] [place] [address] Dr. Ewa Solano Neutrophils/100 WBC (Bld) 62.9 % Normal 43.0-75.0 [facility] Comment on above: Performed By: #### C BC #### [facility] [address] [place] [address] Dr. Ewa Solano Platelet mean volume (Bld) [Entitic vol] 10.7 fL Normal 9.5-13.5 [facility] Comment on above: Performed By: #### C BC #### [facility] [address] [place] [address] Dr. Ewa Solano PLT 275 103/ul Normal 150-450 [facility] Comment on above: Performed By: #### C BC #### [facility] [address] [place] [address] Dr. Ewa Solano RBC 5.57 106/ul Critically high 4.20-5.40 [facility] Comment on above: Performed By: #### C BC #### [facility] [address] [place] [address] Dr. Ewa Solano WBC 7.0 103/ul Normal 4.0-11.0 [facility] Comment on above: Performed By: #### C BC #### [facility] [address] [place] [address] Dr. Ewa Solano [facility]on SARS-CoV-2 (COVID-19) RNA DOMINIC+probe Ql (Unsp spec) Detected Critically abnormal NOT DETECTED [facility] Comment on above: Result Comment: This test is not yet approved or cleared by the [place] FDA. When there are no FDA-approved or cleared tests available, and other criteria are met, FDA can make tests available under an emergency access mechanism called an Emergency Use Authorization (EUA). The EUA for this test is supported by the [employer] of Health and Human Service's (HHS's) declaration that circumstances exist to justify the emergency use of in vitro diagnostics for the detection and/or diagnosis of the virus that causes COVID-19. This EUA will remain in effect (meaning this test can be used) for the duration of the COVID-19 declaration justifying emergency of IVDs, unless it is terminated or revoked by FDA (after which the test may no longer be used). Performed By: #### C VDTBH #### [facility] [address] [place] [address] Dr. Ewa Solano ER URINE PROFILEon 2 Bilirubin Ql (U) Negative Normal NEGATIVE [facility] Comment on above: Performed By: #### U MICRO, ERUR #### [facility] [address] [place] [address] Dr. Ewa Solano Clarity (U) CLEAR Normal CLEAR [facility] Comment on above: Performed By: #### U MICRO, ERUR #### [facility] [address] [place] [address] Dr. Ewa Solano Color (U) YELLOW Normal YELLOW [facility] Comment on above: Performed By: #### U MICRO, ERUR #### [facility] [address] [place] [address] Dr. Ewa CAMPOSD A micrscopic examination will be performed if indicated. Normal [facility] Comment on above: Performed By: #### U MICRO, ERUR #### [facility] [address] [place] [address] Dr. Ewa Solano Glucose Ql (U) Negative Normal NEGATIVE [facility] Comment on above: Performed By: #### U MICRO, ERUR #### [facility] [address] [place] [address] Dr. Ewa Solano Hemoglobin Ql (U) Negative Normal NEGATIVE [facility] Comment on above: Performed By: #### U MICRO, ERUR #### [facility] [address] [place] [address] Dr. Ewa Solano Ketones Ql (U) TRACE Abnormal NEGATIVE [facility] Comment on above: Performed By: #### U MICRO, ERUR #### [facility] [address] [place] [address] Dr. Ewa Solano LEUKOCYTES TRACE Abnormal NEGATIVE [facility] Comment on above: Performed By: #### U MICRO, ERUR #### [facility] [address] [place] [address] Dr. Ewa Solano Nitrite Ql (U) Negative Normal NEGATIVE [facility] Comment on above: Performed By: #### U MICRO, ERUR #### [facility] [address] [place] [address] Dr. Ewa Solano pH (U) 6.0 [pH] Normal 5-9 [facility] Comment on above: Performed By: #### U MICRO, ERUR #### [facility] [address] [place] [address] Dr. Ewa Solano SPEC GRAVITY 1.025 Normal 1.005-<=1.025 [facility] Comment on above: Performed By: #### U MICRO, ERUR #### [facility] [address] [place] [address] Dr. Ewa Solano UA PROTEIN Negative Normal NEGATIVE/ TRACE [facility] Comment on above: Performed By: #### U MICRO, ERUR #### [facility] [address] [place] [address] Dr. Ewa Solano UR MICRO IND INDICATED Normal [facility] Comment on above: Performed By: #### U MICRO, ERUR #### [facility] [address] [place] [address] Dr. Ewa Solano Urobilinogen Qn (U) 0.2 {Vannessa'U}/dL Normal 0.2 - 1.0 [facility] Comment on above: Performed By: #### U MICRO, ERUR #### [facility] [facility] [address] [place] [address] Dr. Ewa Solano PROF 14(COMP METB)on 022 Albumin [Mass/Vol] 4.1 g/dL Normal 3.5-5.0 [facility] Comment on above: Performed By: #### C MP #### [facility] [address] [place] [address] Dr. Ewa Solano Albumin/Globulin [Mass ratio] 1.1 {ratio} Normal [facility] Comment on above: Performed By: #### C MP #### [facility] [address] [place] [address] Dr. Ewa Solano ALP [Catalytic activity/Vol] 113 U/L Normal 38-126 [facility] Comment on above: Performed By: #### C MP #### [facility] [address] [place] [address] Dr. Ewa Solano ALT [Catalytic activity/Vol] 43 U/L Normal 9-52 [facility] Comment on above: Performed By: #### C MP #### [facility] [address] [place] [address] Dr. wEa Solano Anion gap [Moles/Vol] 13.3 mmol/L Normal [facility] Comment on above: Performed By: #### C MP #### [facility] [address] [place] [address] Dr. Ewa Solano AST [Catalytic activity/Vol] 22 U/L Normal 14-36 [facility] Comment on above: Performed By: #### C MP #### [facility] [address] [place] [address] Dr. Ewa Solano Bilirubin [Mass/Vol] 0.5 mg/dL Normal 0.2-1.3 [facility] Comment on above: Performed By: #### C MP #### [facility] [address] [place] [address] Dr. Ewa Solano Calcium [Mass/Vol] 9.6 mg/dL Normal 8.4-10.2 [facility] Comment on above: Performed By: #### C MP #### [facility] [address] [place] [address] Dr. Ewa Solano Chloride [Moles/Vol] 104 mmol/L Normal 98-107 [facility] Comment on above: Performed By: #### C MP #### [facility] [address] [place] [address] Dr. Ewa Solano CO2 [Moles/Vol] 27.2 mmol/L Normal 22.0-30.0 [facility] Comment on above: Performed By: #### C MP #### [facility] [address] [place] [address] Dr. Ewa Solano Creatinine [Mass/Vol] 0.78 mg/dL Normal 0.52-1.04 [facility] Comment on above: Performed By: #### C MP #### [facility] [address] [address] [address] Ewa Solano EGFR-AF KUWAITI >60 Normal >=60 [facility] Comment on above: Performed By: #### C MP #### [facility] [address] [address] [address] Ewa Solano EGFR-NON AF [place]I >60 Normal >=60 [facility] Comment on above: Performed By: #### C MP #### [facility] [address] [place] [address] Dr. Ewa Solano Globulin (S) [Mass/Vol] 3.6 g/dL Normal [facility] Comment on above: Performed By: #### C MP #### [facility] [address] [place] [address] Dr. Ewa Solano Glucose [Mass/Vol] 98 mg/dL Normal 74-106 [facility] Comment on above: Performed By: #### C MP #### [facility] [address] [place] [address] Dr. Ewa Solano Potassium [Moles/Vol] 3.5 mmol/L Normal 3.4-5.0 [facility] Comment on above: Performed By: #### C MP #### [facility] [address] [place] [address] Dr. Ewa Solano Protein [Mass/Vol] 7.7 g/dL Normal 6.1-8.2 [facility] Comment on above: Performed By: #### C MP #### [facility] [address] [place] [address] Dr. Ewa Solano Sodium [Moles/Vol] 141 mmol/L Normal 137-145 [facility] Comment on above: Performed By: #### C MP #### [facility] [address] [address] [address] Ewa Solano Urea nitrogen [Mass/Vol] 15.0 mg/dL Normal 7.0-17.0 [facility] Comment on above: Performed By: #### C MP #### [facility] [address] [address] [address] Ewa Solano Urea nitrogen/Creatini ne [Mass ratio] 19.2 mg/mg Normal [facility] Comment on above: Performed By: #### C MP #### [facility] [address] [address] [address] Ewa Solano URINE MICROSCOPIC ONLYon BACTERIA TRACE Abnormal NONE SEEN [facility] Comment on above: Performed By: #### U MICRO, ERUR #### [facility] [address] [place] [address] Dr. Ewa Solano Bacteria identified Cx Nom (U) INDICATED Normal [facility] Comment on above: Performed By: #### U MICRO, ERUR #### [facility] [address] [place] [address] Dr. Ewa Solano CAST NONE SEEN Normal NONE SEEN [facility] Comment on above: Performed By: #### U MICRO, ERUR #### [facility] [address] [place] [address] Dr. Ewa Solano Crystals LM Nom (Urine sed) NONE SEEN Normal NONE SEEN [facility] Comment on above: Performed By: #### U MICRO, ERUR #### [facility] [address] [address] [address] Ewa Solano Epithelial cells LM Ql (Urine sed) FEW Abnormal NONE SEEN /RARE [facility] Comment on above: Performed By: #### U MICRO, ERUR #### [facility] [address] [place] [address] Dr. Ewa Solano MUCOUS SMALL Abnormal NONE SEEN [facility] Comment on above: Performed By: #### U MICRO, ERUR #### [facility] [address] [address] [address] Ewa Solano RBC NONE SEEN Abnormal 0-2 [facility] Comment on above: Performed By: #### U MICRO, ERUR #### [facility] [address] [address] [address] Ewa Solano WBC 5-10 Abnormal NONE SEEN [facility] Comment on above: Performed By: #### U MICRO, ERUR #### [facility] [address] [address] [address] Ewa Solano XR hand RT min 3V*on 021 XR hand RT min 3V* [facility] [place] [address] [place] [address] XRay Report Signed Patient: Sara Verduzco MR#: [id number] 2 : 1970 Acct:[id number] Age/Sex: 50 / F ADM Date: 10/12/20 Loc: [facility] Room: Type: [facility] Attending Dr: Meka Queen MD Ordering Provider: Meka Queen MD Date of Service: 10/12/20 XR/XR hand RT min 3V*: M79.641 Copies to: Meka Queen MD XR hand RT min 3V* 10/12/2020 1:41 PM SIGNS AND SYMPTOMS: Right hand mass along the palmar aspect, pain PROTOCOL: Frontal, lateral, and oblique radiographs of the right hand COMPARISON: None FINDINGS: The bones are in anatomic alignment. This preservation the joint spaces. There is no fracture or subluxation. No significant soft tissue swelling. No radiographically visible mass. XR/XR hand RT min 3V* IMPRESSION: No acute bony injury or significant degenerative change. No radiographically visible mass. Impression dictated by: Rick Vu M.D.10/12/2020 3:42 PM Dictation Location: [place] [address] Transcribed By: [facility] 10/12/20 154 Dictated By: Rick Vu II, MD 10/12/20 154 Signed By: 10/12/20 154 [facility] Vital Signs Date Time Vital Sign Value Performing Clinician Faci lity 03-11-2024 12:51-0400 Body height 170.2 cm Tara Smith MD Work Phone: [facility] 03-11-2024 12:51-0400 Body mass index (BMI) [Ratio] 27.4 kg/m2 Tara Smith MD Work Phone: [facility] 03-11-2024 12:51-0400 Body weight 79.38 kg Tara Smith MD Work Phone: [facility] 03-11-2024 12:51-0400 Diastolic blood pressure 74 mm[Hg] Tara Smith MD Work Phone: [facility] 03-11-2024 12:51-0400 Respiratory rate 18 /min Tara Smith MD Work Phone: [facility] 03-11-2024 12:51-0400 Systolic blood pressure 122 mm[Hg] Tara Smith MD Work Phone: [facility] 03-05-2024 09:20-0400 Body height 170.2 cm Tara Smith MD Work Phone: [facility] 03-05-2024 09:20-0400 Body mass index (BMI) [Ratio] 27.4 kg/m2 Tara Smith MD Work Phone: [facility] 03-05-2024 09:20-0400 Body weight 79.38 kg Tara Smith MD Work Phone: [facility] 03-05-2024 09:20-0400 Diastolic blood pressure 58 mm[Hg] Tara Smith MD Work Phone: [facility] 03-05-2024 09:20-0400 Respiratory rate 18 /min Tara Smith MD Work Phone: [facility] 03-05-2024 09:20-0400 Systolic blood pressure 106 mm[Hg] Tara Smith MD Work Phone: [facility] 08-27-2023 09:48-0400 Body height 170.2 cm Tara Smith MD Work Phone: [facility] 08-27-2023 09:48-0400 Body mass index (BMI) [Ratio] 25.84 kg/m2 Tara Smith MD Work Phone: [facility] 08-27-2023 09:48-0400 Body weight 74.84 kg Tara Smith MD Work Phone: [facility] 08-27-2023 09:48-0400 Diastolic blood pressure 62 mm[Hg] Tara Smith MD Work Phone: [facility] 08-27-2023 09:48-0400 Respiratory rate 18 /min Tara Smith MD Work Phone: [facility] 08-27-2023 09:48-0400 Systolic blood pressure 110 mm[Hg] Tara Smith MD Work Phone: [facility] Encounters Encounter Date Encounter Type Care Provider Facility Start: 03-11-2024 End: 03-11-2024 Patient encounter procedure [facility] Smith MD [facility] Comment on above: Greater trochanteric bursitis of right hip (Primary Dx); Osteoarthritis of right AC (acromioclavicular) joint Start: 03-11-2024 End: 03-11-2024 ambulatory [facility] Start: 03-05-2024 End: 03-05-2024 Office outpatient visit 25 minutes Tara Smith MD Work Phone: [facility] Comment on above: Fibromyalgia Start: 03-05-2024 End: 03-05-2024 ambulatory [facility] Start: 03-02-2024 End: 03-02-2024 Telephone encounter Apple James CMA [facility] Start: 08-27-2023 End: 08-27-2023 Office outpatient visit 25 minutes Tara Smith MD Work Phone: [facility] Comment on above: Greater trochanteric bursitis of right hip (Primary Dx); Fibromyalgia; Osteoarthritis of right AC (acromioclavicular) joint Start: 08-27-2023 End: 08-27-2023 ambulatory TARA SMITH [facility] Start: 08-19-2023 End: 08-19-2023 ambulatory [facility] [place] [facility] Not Available Start: 05-29-2022 End: 05-29-[address] LANI PEACOCK Facility:[facility] Start: 07-02-2021 End: 07-02-[address] LANI PEACOCK Facility:[facility] Procedures Date Procedure Procedure Detail Performing Clinician Start: 09-05-2020 Colonoscopy Tara ashley MD Work Phone: Plan of Treatment Date Care Activity Detail Author Start: 09-05-2030 Screening for malignant neoplasm of colon Colonoscopy [facility] Start: 03-01-2027 DTaP,Tdap and Td Vaccines (2 - Td or Tdap) DTaP,Tdap and Td Vaccines (2 - Td or Tdap) [facility] Start: 03-11-2025 Adult BMI Screening Adult BMI Screening [facility] Start: 03-05-2025 Adult BMI Screening Adult BMI Screening [facility] Start: 03-05-2025 Tobacco Screening Tobacco Screening [facility] Start: 09-03-2024 End: 09-03-2024 Patient encounter procedure 09/03/2024 10:00 AM EDT Office Visit [facility] [address] [place] [address] Tara Smith MD [address] [address] [facility] Start: 08-26-2024 Adult BMI Screening Adult BMI Screening [facility] Start: 03-11-2024 End: 03-11-2024 Patient encounter procedure 03/11/2024 1:00 PM EDT Procedure visit [facility] [address] [id number] Tara Smith MD [address] [address] [facility] Start: 03-05-2024 End: 03-05-2024 Patient encounter procedure 03/05/2024 9:15 AM EDT Office Visit [facility] [address] [place] [address] Tara Smith MD [address] [address] [facility] Start: 01-26-2024 Influenza vaccination Influenza Vaccine [facility] Start: 09-22-2023 Tobacco Screening Tobacco Screening [facility] Start: 2020 Administration of varicella zoster vaccine Zoster (Shingles) Vaccine (1 of 2) [facility] Start: 1988 Adult BMI Follow Up Plan Adult BMI Follow Up Plan [facility] Start: 1982 Depression Screening Depression Screening [facility] Immunizations Immunization Date Immunization Notes Care Provider Fa cility 04-22-2023 influenza virus vaccine, unspecified formulation Tara Smith MD Work Phone: [facility] Payers Date Payer Category Payer Medicare [facility] [place] [id number] 2023-Present [phone] [place] [id number] 2023 Medicare [facility] [employer] MEDICARE [id number] 2023 Medicare [id number] 1970 Unknown [id number] 1970 Unknown [id number] 1970 Unknown [id number] 1970 Unknown [id number] 1970 Unknown [id number] 1970 Unknown [id number] 1959 Unknown [id number] Social History Date Type Detail Facility Start: 07-08-2021 Tobacco smoking stat [facility] Ex-smoker [facility] History of tobacco use Current smoker [facility] History of tobacco use Cigarette Smoker P [facility] Start: 07-07-2020 End: 07-08-2021 Cigarettes smoked current (pack per day) - Reported 0.5 [facility] Start: 07-08-2021 Tobacco use and exposure Smokeless tobacco non-user [facility] Start: 09-21-2022 End: 03-05-2024 Alcohol intake Current drinker of alcohol (finding) [facility] Start: 07-07-2020 End: 09-21-2022 Tobacco use panel [facility] Childcare Unknown [facility] Start: 09-05-2020 Tobacco Comment quitting smoking [facility] Start: 08-15-2020 Alcohol Comment social [facility] Start: 1970 Sex Assigned At Not on file P [facility] Start: 12-30-2014 Sex Female (finding) [facility] Clinical Notes 08-27-2023 to 03-11-2024 Tara Smith MD - 03/11/2024 1:00 PM EDAnnabella Smith MD - 03/05/2024 9:15 AM EDTTelephone Encounter - Apple James [facility] - 03/02/2024 3:46 PM Annie Smith MD - 08/27/2023 9:45 AM EDT Note Date & Type Note Facility 03-11-2024 History of Presen t illness Narrative Rheumatology Procedure Site: Right trochanteric bursa and right shoulder AC joint Date/Time: 2:49 PM Performed by: Tara Smith Authorized by: Tara Smith Written Consent obtained?: Yes Risks and benefits: Risks, benefits and alternatives were discussed Patient states understanding of procedures being performed: Yes Patient's understanding of procedure matches consent: Yes Procedure consent matches procedure scheduled: Yes Relevant documents present and verified: Yes Test results available and properly labeled: Yes Site marked: Yes Imaging studies available: No Patient identity confirmed: Verbally with patient Time out: Immediately prior to the procedure a time out was called Indications: Right trochanteric area right AC joint Needle size: 22 G Ultrasound guidance: No Approach: lateral and anterior Lidocaine HCL 1% amount (ml): 4 the trochanteric bursa and 2 in the AC joint Triamcinolone amount (mg): 40 the trochanteric bursa and 20 mg the AC joint Patient tolerance: Patient tolerated the procedure well with no immediate complications Procedure was completed Vital signs stable during the procedure documented in this encounter [facility] 03-05-2024 History of Presen t illness Narrative Images from the original note were not included. [address] [facility] [phone] Date of Service: 03/05/2024 Subjective: Sara Verduzco is a 53 y.o. female who presents today for evaluation fibromyalgia. Patient is seen at the request of Ashley Mane MD. This is a follow-up visit with this patient who is 53-year-old female patient presenting today as an established patient for follow-up of fibromyalgia, history of rheumatoid arthritis, low back pain was seen 1st time September 12, 2020 last time the clinic 08/27/2023 Patient's history dates back to 2019 when she started having joints pain started in the multiple joints, , associated with swelling of the ankles and hands , associated with morning stiffness around 1 hour, for which patient has been started on Methotrexate 6 tab/week, Around 01/2019 she ran off it 1 month ago,Prednisone in the past for 1 month, she did not improve on these medications,she has also fatigue and depression and brain fog,she also has chronic history of lower back pain, myalgias, poor sleep and neck pain. No skin rash, no Raynaud's, no history of butterfly rash she mentioned hair loss. History of cytopenia, serositis, DVT or PE She was seen on March 03, 2019 by a photograph developer at [facility] referred from PCP with history of swelling of the MCPs and morning stiffness and positive rheumatoid factor, was started on methotrexate for highly suspicious rheumatoid based on history above physical examination by Rheumatology that time did not revealed swelling of joints but mild tender MCPs, last time seen by given [facility] photograph developer was June 26, 2019 that the time since she did not demonstrate evidence of synovitis but she had trochanteric bursitis for which she was given steroid injection Lab tests done at [facility] February 2019 CCP negative, sed rate normal, CRP normal, x-ray hands and feet few scattered osteophytes Past medical, negative for diabetes mellitus hypertension,,she has both hyperlipidemia hypothyroidism Revealed CRP normal, ESR normal, CCP negative, CBC normal, CMP normal X-ray hands no erosive or significant joint change, x-ray lumbar spine lumbar minimal bony spurring and facet joint disease current medications including amitriptyline, meloxicam, Zanaflex. Has been off methotrexate since 2020,off prednisone for 2.5 years MRI lumbar spine on 06/21/ 2021 Small central annular tear at the L4-5 level without neural foraminal encroachment or central canal stenosis.Facet hypertrophy at the L5-S1 level. There is no neural foraminal encroachment or central canal stenosis Recent lab June 01, 2022 serum creatinine normal and CBC was normal Medications including amitriptyline, nabumetone , methocarbamol On 08/27/2023 Was given steroid right trochanteric bursa and Right AC joint injected At this point patient said that she has been having right lateral thigh pain and right AC joint pain Follow-up Associated symptoms include arthralgias. Pertinent negatives include no fatigue or myalgias. The following portions of the patient's history were reviewed and updated as appropriate: allergies, current medications, past family history, past medical history, past social history, past surgical history and problem list. Review of Systems: Review of Systems Constitutional: Negative for fatigue. HENT: Negative. Musculoskeletal: Positive for arthralgias. Negative for myalgias. Skin: Negative. Hematological: Negative. Psychiatric/Behavioral: Negative for sleep disturbance. Current Outpatient Medications Medication Sig Dispense Refill atorvastatin (LIPITOR) 10 mg tablet Take 1 tablet (10 mg total) by mouth in the morning. benzonatate (TESSALON PERLES) 100 mg capsule Take 1 capsule (100 mg total) by mouth every 8 (eight) hours. 21 capsule 0 budesonide-formoterol (SYMBICORT) 160-4.5 mcg/actuation inhaler Inhale 2 puffs in the morning and 2 puffs before bedtime. cefDINIR (OMNICEF) 300 mg capsule Take 1 capsule (300 mg total) by mouth in the morning and 1 capsule (300 mg total) before bedtime. citalopram (CeleXA) 40 mg tablet Take 1 tablet (40 mg total) by mouth in the morning. fluticasone propionate (FLONASE) 50 mcg/actuation nasal spray Administer 1 spray into each nostril in the morning. 16 g 0 levothyroxine (SYNTHROID, LEVOTHROID) 88 MCG tablet Take 1 tablet (88 mcg total) by mouth in the morning. [id number] mg-mcg-mcg tablet Take by mouth. ondansetron ODT (ZOFRAN ODT) 4 mg disintegrating tablet Dissolve 1 tablet (4 mg total) on tongue every 8 (eight) hours as needed for nausea for up to 21 doses. 21 tablet 0 promethazine (PHENERGAN) 25 mg tablet Take 1 tablet (25 mg total) by mouth every 6 (six) hours as needed for nausea or vomiting. 15 tablet 0 varenicline (CHANTIX MORENO) 0.5 mg (11)- 1 mg (42) tablet Chantix Starting Month Box 0.5 mg (11)-1 mg (42) tablets in dose pack amitriptyline (ELAVIL) 75 mg tablet TAKE ONE TABLET BY MOUTH ONCE NIGHTLY AT 8 PM. 90 tablet 3 methocarbamoL (ROBAXIN) 750 mg tablet Take 1 tablet (750 mg total) by mouth once daily at bedtime. 90 tablet 3 nabumetone (RELAFEN) 500 mg tablet One tablet daily for pain as needed 90 tablet 3 No current facility-administered medications for this visit. Physical Exam: Physical Exam Vitals and nursing note reviewed. Constitutional: Appearance: She is well-developed. HENT: Head: Normocephalic and atraumatic. Right Ear: External ear normal. Left Ear: External ear normal. Nose: Nose normal. Eyes: Conjunctiva/sclera: Conjunctivae normal. Pupils: Pupils are equal, round, and reactive to light. Neck: Thyroid: No thyromegaly. Pulmonary: Effort: Pulmonary effort is normal. Musculoskeletal: General: No tenderness or deformity. Normal range of motion. Cervical back: Normal range of motion and neck supple. Comments: Tender right trochanteric bursa. And right AC joint Skin: General: Skin is warm and dry. Coloration: Skin is not pale. Findings: No erythema or rash. Neurological: Mental Status: She is alert and oriented to person, place, and time. Cranial Nerves: No cranial nerve deficit. Psychiatric: Behavior: Behavior normal. Thought Content: Thought content normal. MISTRY-28 (If Applicable) There is currently no information documented on the homunculus. Go to the Rheumatology activity and complete the homunculus joint exam. MISTYR-28 (CRP): -- MISTRY-28 (ESR): -- Tender (MISTRY-28): -- Swollen (MISTRY-28): -- BP 106/58 Resp 18 Ht 170.2 cm (5' 7.01 ) Wt 79.4 kg (175 lb) BMI 27.40 kg/m : reviewed Labs and Imaging: reviewed and discussed with the patient during the visit.I Lab Results Component Value Date WBC 5.1 09/21/2022 HGB 13.6 09/21/2022 HCT 40.4 09/21/2022 MCV 85 09/21/2022 CRP 0.3 09/13/2020 GFR >60 07/08/2021 GFR >60 07/08/2021 AST 22 09/21/2022 AST 16 02/17/2020 Imaging: Assessment and Plan: Sara Verduzco is a 53 y.o. female patient with: 1. Fibromyalgia - amitriptyline (ELAVIL) 75 mg tablet; TAKE ONE TABLET BY MOUTH ONCE NIGHTLY AT 8 PM. Dispense: 90 tablet; Refill: 3 - methocarbamoL (ROBAXIN) 750 mg tablet; Take 1 tablet (750 mg total) by mouth once daily at bedtime. Dispense: 90 tablet; Refill: 3 - nabumetone (RELAFEN) 500 mg tablet; One tablet daily for pain as needed Dispense: 90 tablet; Refill: 3 At this point main issue is pain right trochanteric bursa. And right AC joint I offered patient steroid injection and she agreed however not able to give an injection because of shortness of material. Advised patient to come to our office in [place] she has to have it injected Return to clinic 6 months This note was created with the assistance of a speech recognition program. While intending to generate a timely document that accurately reflects the content of the visit, no guarantee can be provided that every grammatical or spelling mistake has been or will be identified or corrected. Thank you for your understanding. [facility] Dr. Tara Smith MD [address], [address] [place] [address] Office: [phone] [facility] Miscellaneous Notes Formattin g of this note might be different from the original. Appt schedule for 03/05 (Ellinger) . Courtesy call to patient informed there insurance out of network and will have to pay out of pocket Pt understood. documented in this encounter [facility] 03-02-2024 Telephone encount er Note Appt schedule for 03/05 (Aashish) . Courtesy call to patient informed there insurance out of network and will have to pay out of pocket Pt understood. [facility] 08-27-2023 History of Presen t illness Narrative Images from the original note were not included. [address] [phone] Date of Service: 08/27/2023 Subjective: Sara Verduzco is a 53 y.o. female who presents today for evaluation fibromyalgia. Patient is seen at the request of Ashley Mane MD. This is a follow-up visit with this patient who is 53-year-old female patient presenting today as an established patient for follow-up of fibromyalgia, history of rheumatoid arthritis, low back pain was seen 1st time September 12, 2020 last time the clinic 08/02/2022 Patient's history dates back to 2019 when she started having joints pain started in the multiple joints, , associated with swelling of the ankles and hands , associated with morning stiffness around 1 hour, for which patient has been started on Methotrexate 6 tab/week, Around 01/2019 she ran off it 1 month ago,Prednisone in the past for 1 month, she did not improve on these medications,she has also fatigue and depression and brain fog,she also has chronic history of lower back pain, myalgias, poor sleep and neck pain. No skin rash, no Raynaud's, no history of butterfly rash she mentioned hair loss. History of cytopenia, serositis, DVT or PE She was seen on March 03, 2019 by a photograph developer at [facility] referred from PCP with history of swelling of the MCPs and morning stiffness and positive rheumatoid factor, was started on methotrexate for highly suspicious rheumatoid based on history above physical examination by Rheumatology that time did not revealed swelling of joints but mild tender MCPs, last time seen by given the clinic photograph developer was June 26, 2019 that the time since she did not demonstrate evidence of synovitis but she had trochanteric bursitis for which she was given steroid injection Lab tests done at [facility] February 2019 CCP negative, sed rate normal, CRP normal, x-ray hands and feet few scattered osteophytes Past medical, negative for diabetes mellitus hypertension,,she has both hyperlipidemia hypothyroidism Revealed CRP normal, ESR normal, CCP negative, CBC normal, CMP normal X-ray hands no erosive or significant joint change, x-ray lumbar spine lumbar minimal bony spurring and facet joint disease current medications including amitriptyline, meloxicam, Zanaflex. Has been off methotrexate since 2020,off prednisone for 2.5 years MRI lumbar spine on 2020 Small central annular tear at the L4-5 level without neural foraminal encroachment or central canal stenosis.Facet hypertrophy at the L5-S1 level. There is no neural foraminal encroachment or central canal stenosis Recent lab June 01, 2022 serum creatinine normal and CBC was normal Medications including amitriptyline, nabumetone , methocarbamol At this point patient said that she has been having right lateral thigh pain right. Right AC joint injected us feel could . Follow-up Associated symptoms include arthralgias. Pertinent negatives include no fatigue or myalgias. The following portions of the patient's history were reviewed and updated as appropriate: allergies, current medications, past family history, past medical history, past social history, past surgical history and problem list. Review of Systems: Review of Systems Constitutional: Negative for fatigue. HENT: Negative. Musculoskeletal: Positive for arthralgias. Negative for myalgias. Skin: Negative. Hematological: Negative. Psychiatric/Behavioral: Negative for sleep disturbance. Current Outpatient Medications Medication Sig Dispense Refill atorvastatin (LIPITOR) 10 mg tablet Take 1 tablet (10 mg total) by mouth in the morning. benzonatate (TESSALON PERLES) 100 mg capsule Take 1 capsule (100 mg total) by mouth every 8 (eight) hours. 21 capsule 0 budesonide-formoterol (SYMBICORT) 160-4.5 mcg/actuation inhaler Inhale 2 puffs in the morning and 2 puffs before bedtime. cefDINIR (OMNICEF) 300 mg capsule Take 1 capsule (300 mg total) by mouth in the morning and 1 capsule (300 mg total) before bedtime. citalopram (CeleXA) 40 mg tablet Take 1 tablet (40 mg total) by mouth in the morning. fluticasone propionate (FLONASE) 50 mcg/actuation nasal spray Administer 1 spray into each nostril in the morning. 16 g 0 levothyroxine (SYNTHROID, LEVOTHROID) 88 MCG tablet Take 1 tablet (88 mcg total) by mouth in the morning. [id number] mg-mcg-mcg tablet Take by mouth. ondansetron ODT (ZOFRAN ODT) 4 mg disintegrating tablet Dissolve 1 tablet (4 mg total) on tongue every 8 (eight) hours as needed for nausea for up to 21 doses. 21 tablet 0 promethazine (PHENERGAN) 25 mg tablet Take 1 tablet (25 mg total) by mouth every 6 (six) hours as needed for nausea or vomiting. 15 tablet 0 varenicline (CHANTIX MORENO) 0.5 mg (11)- 1 mg (42) tablet Chantix Starting Month Box 0.5 mg (11)-1 mg (42) tablets in dose pack amitriptyline (ELAVIL) 75 mg tablet One capsule at 8 PM each night 90 tablet 1 methocarbamoL (ROBAXIN) 500 mg tablet Take 1 tablet (500 mg total) by mouth once daily at bedtime. 90 tablet 1 nabumetone (RELAFEN) 500 mg tablet One tablet twice daily for pain as needed 180 tablet 1 No current facility-administered medications for this visit. Physical Exam: Physical Exam Vitals and nursing note reviewed. Constitutional: Appearance: She is well-developed. HENT: Head: Normocephalic and atraumatic. Right Ear: External ear normal. Left Ear: External ear normal. Nose: Nose normal. Eyes: Conjunctiva/sclera: Conjunctivae normal. Pupils: Pupils are equal, round, and reactive to light. Neck: Thyroid: No thyromegaly. Pulmonary: Effort: Pulmonary effort is normal. Musculoskeletal: General: No tenderness or deformity. Normal range of motion. Cervical back: Normal range of motion and neck supple. Comments: Tender right trochanteric bursa. And right AC joint Skin: General: Skin is warm and dry. Coloration: Skin is not pale. Findings: No erythema or rash. Neurological: Mental Status: She is alert and oriented to person, place, and time. Cranial Nerves: No cranial nerve deficit. Psychiatric: Behavior: Behavior normal. Thought Content: Thought content normal. MISTRY-28 (If Applicable) There is currently no information documented on the homunculus. Go to the Rheumatology activity and complete the homunculus joint exam. MISTRY-28 (CRP): -- MISTRY-28 (ESR): -- Tender (MISTRY-28): -- Swollen (MISTRY-28): -- BP 110/62 Resp 18 Ht 170.2 cm (5' 7.01 ) Wt 74.8 kg (165 lb) BMI 25.84 kg/m : reviewed Labs and Imaging: reviewed and discussed with the patient during the visit.I Lab Results Component Value Date WBC 5.1 09/21/2022 HGB 13.6 09/21/2022 HCT 40.4 09/21/2022 MCV 85 09/21/2022 CRP 0.3 09/13/2020 GFR >60 07/08/2021 GFR >60 07/08/2021 AST 22 09/21/2022 AST 16 02/17/2020 Imaging: Assessment and Plan: Sara Verduzco is a 53 y.o. female patient with: 1. Fibromyalgia - amitriptyline (ELAVIL) 75 mg tablet; One capsule at 8 PM each night Dispense: 90 tablet; Refill: 1 - nabumetone (RELAFEN) 500 mg tablet; One tablet twice daily for pain as needed Dispense: 180 tablet; Refill: 1 - methocarbamoL (ROBAXIN) 500 mg tablet; Take 1 tablet (500 mg total) by mouth once daily at bedtime. Dispense: 90 tablet; Refill: 1 2. Greater trochanteric bursitis of right hip - triamcinolone acetonide (KENALOG-40) injection 40 mg - triamcinolone acetonide (KENALOG-40) injection 40 mg 3. Osteoarthritis of right AC (acromioclavicular) joint - lidocaine (XYLOCAINE) 10 mg/mL (1 %) injection 40 mg - lidocaine (XYLOCAINE) 10 mg/mL (1 %) injection 40 mg At this point main issue is pain right trochanteric bursa. And right AC joint I offered patient steroid injection and she agreed. Procedure :under sterile condition right trochanteric bursa was injected with 4 mL lidocaine and 40 mg triamcinolone and right AC joint 20 mg and on mL lidocaine with immediate relief pain. Will keep current medications Return to clinic 6 months This note was created with the assistance of a speech recognition program. While intending to generate a timely document that accurately reflects the content of the visit, no guarantee can be provided that every grammatical or spelling mistake has been or will be identified or corrected. Thank you for your understanding. [facility] Dr. Tara Smith MD [address], [address] [place] [address] Office: [phone] Rheumatology Procedure Site: right trochanteric bursitis and right AC joint osteoarthritis Date/Time: 0:22 AM Performed by: Tara Smith Authorized by: Tara Smith Written Consent obtained?: Yes Risks and benefits: Risks, benefits and alternatives were discussed Patient states understanding of procedures being performed: Yes Patient's understanding of procedure matches consent: Yes Procedure consent matches procedure scheduled: Yes Relevant documents present and verified: Yes Test results available and properly labeled: Yes Site marked: Yes Imaging studies available: No Patient identity confirmed: Verbally with patient Time out: Immediately prior to the procedure a time out was called Indications: right AC joint osteoarthritis and right trochanteric bursa Needle size: 22 G Ultrasound guidance: No Approach: lateral and anterior Lidocaine HCL 1% amount (ml): 08/26 Triamcinolone amount (mg): 40 Patient tolerance: Patient tolerated the procedure well with no immediate complications Procedure was completed Vital signs stable during the procedure documented in this encounter [facility] Evaluation note Diagnosis Greater trochanteric bursitis of right hip- Primary Fibromyalgia Unspecified myalgia and myositis Osteoarthritis of right AC (acromioclavicular) joint [facility] Fibromyalgia Unspecified myalgia and myositis [facility] Diagnosis Greater trochanteric bursitis of right hip- Primary Osteoarthritis of right AC (acromioclavicular) joint [facility] filedocumented in this [facility] filedocument[facility] in [facility] filedocumented in this [facility] filed[facility]ed [facility] this [facility] Summary Purpose Family History No Family History Records FoundNo Family History Records FoundNo Family History Records FoundNo Family History Records FoundNo Family History Records FoundNo Family History Records Found Advance Directives No Advanced Directives Records FoundNo Advanced Directives Records FoundNo Advanced Directives Records FoundNo Advanced Directives Records FoundNo Advanced Directives Records FoundNo Advanced Directives Records Found Additional Source Comments INFORMATION SOURCE (unrecogn ized section and content) DATE CREATED AUTHOR 06/13/2021 [facility] DATE CREATED AUTHOR AUTHOR'S ORGANIZ ATION 05/29/2022 [facility] DATE CREATED AUTHOR AUTHOR'S ORGANIZ ATION 08/19/2023 [facility] EPIC DATE CREATED AUTHOR AUTHOR'S ORGANIZ ATION 02/09/2024 [facility] DATE CREATED AUTHOR AUTHOR'S ORGANIZ ATION 03/07/2024 [facility] DATE CREATED AUTHOR AUTHOR'S ORGANIZ ATION 03/13/2024 [facility] Care Teams (unrecognized sec tion and content) Appliance Technician Relationship Specialty Start Date End Date Ashley Mane MD [address] [place] [address] [phone] PCP - General Family Medicine 01/23/22 Appliance Technician Relationship Specialty Start Date End Date Ashley Mane MD [address] [place] [address] [phone] PCP - General Family Medicine 01/23/22 Appliance Technician Relationship Specialty Start Date End Date Ashley Mane MD [address] [place] [address] PCP - General Family Medicine 01/23/22 Appliance Technician Relationship Specialty Start Date End Date Ashley Mane MD [address] [place] [address] PCP - General Family Medicine 01/23/22 FOR RECORDS PERTAINING TO PATIENTS WHO ARE OR HAVE BEEN ENROLLED IN A CHEMICAL DEPENDENCY/SUBSTANCEABUSE PROGRAM, SOME INFORMATION MAY BE OMITTED. This clinical summary was aggregated from multiple sources. Caution should be exercised in using it in the provision of clinical care. This summary normalizes information from multiple sources, and as a consequence, information in this document may materially change the coding, format and clinical context of patient data. In addition, data may be omitted in some cases. CLINICAL DECISIONS SHOULD BE BASED ON THE PRIMARY CLINICAL RECORDS. [facility] [employer] [facility]. provides no warranty or guarantee of the accuracy or completeness of information in this document.
[2024-07-13] MEDS: KETOROLAC TROMETHAMINE 30 MG/ML VIAL IM (09:30)
--- NOTE | 2024-07-13 09:30 | ED.GENADUL1 ---
HPI HPI - General Adult General Chief complaint: Back Pain/Injury Stated complaint: LOWER BACK PAIN Time Seen by Provider: 07/13/24 09:24 Source: patient Mode of arrival: walk-in Limitations: no limitations History of Present Illness HPI narrative: Patient is a 53-year-old female who is presenting to the ER with chief complaint of left lower back pain. Patient stated that she was walking yesterday, did not have a fall twisting or turning. Patient has a history of fibromyalgia and rheumatoid arthritis. Patient states that she started having some pain to the left lower lumbar area yesterday and today. Patient has no urinary frequency urgency or burning. No radiation of the pain to left flank or left lower quadrant. No radiation or paresthesias into the left lower extremity. Patient has no rash. Patient has pain to the left soft tissue lumbar area. Patient took Tylenol and was using heat throughout the day yesterday. No stretching. Patient came in for evaluation. Patient drove herself to the ER. All systems are negative except as noted/marked. All systems reviewed and otherwise negative. Nurses note and vital signs reviewed and patient is not hypoxic. General: The patient appears well and in no apparent distress. Patient is resting comfortably on cart. Patient is not toxic, lethargic, or listless Skin: Warm, dry, no pallor noted. There is no rash noted. No petechiae, purpura. Head: Normocephalic, atraumatic Eye: Normal conjunctiva, no drainage, EOMI. PERRL Ears, Nose, Mouth, and Throat: oral mucosa is moist. Nares patent. Mouth without vesicles. Cardiovascular: Regular Rate and Rhythm, Respiratory: Patient is in no distress, Back: Patient has mild to moderate tenderness palpation to left lumbar soft tissue, no midline lower thoracic or lumbar sacral tenderness to palpation, no step-offs. No rash. Positive straight leg raising test on the left, patient has reproducible pain to left lower lumbar area with internal/external rotation of left hip and flexion of left hip. Otherwise the rest of her back is non-tender, no CVA tenderness bilaterally to percussion. No CT LS midline pain GI: no tenderness to palpation, no masses appreciated. No rebound, guarding, or rigidity noted. No distention. No bilateral flank pain, no suprapubic tenderness palpation. Musculoskeletal: Patient has full range of motion of all of the extremities, no motor, sensory, or focal neurological deficits Neurological: A&O x4, normal speech Psychiatric: Cooperative Related Data Home Medications ?Medication ?Instructions ?Recorded ?Confirmed calcium carbonate (Calcium 600) 1,500 mg PO DAILY 08/13/23 07/13/24 cholecalciferol (vitamin D3) 250 10,000 unit PO DAILY 08/13/23 07/13/24 mcg (10,000 unit) capsule citalopram 40 mg tablet 40 mg PO DAILY 08/13/23 07/13/24 levothyroxine 88 mcg tablet 88 mcg PO DAILY 08/13/23 07/13/24 mecobalamin (vitamin B12) 500 mcg 500 mcg PO DAILY 08/13/23 07/13/24 chewable tablet omeprazole 20 mg capsule,delayed 20 mg PO DAILY 08/13/23 07/13/24 release thiamine HCl (vitamin B1) 100 mg 100 mg PO TID 08/13/23 07/13/24 tablet amitriptyline 75 mg tablet mg 07/13/24 Previous Rx's ?Medication ?Instructions ?Recorded methocarbamol 750 mg tablet 750 mg PO TID PRN pain #20 tabs 08/13/23 ondansetron 4 mg disintegrating 4 mg PO Q6H PRN nausea and 05/28/24 tablet vomiting #12 tabs lidocaine 5 % topical patch 1 patch topical Q24H #15 ea 07/13/24 (Lidoderm) methocarbamol 500 mg tablet 500 mg PO Q8H PRN muscle pain #10 07/13/24 tabs Allergies Allergy/AdvReac Type Severity Reaction Status Date / Time No Known Drug Allergies Allergy Verified 07/13/24 08:52 Opioid HPI Opioid Management Most Recent Opioid Data: Last Pain Scale 6 08/13/23 14:36 08/13/23 [facility] Social History Little interest or pleasure in doing things: not at all Feeling down, depressed, or hopeless: not at all Exam Constitutional Vital Signs, click to edit/add: Last Vital Signs Temp 98.6 F 07/13/24 08:54 Pulse 71 07/13/24 08:54 Resp 18 07/13/24 08:54 BP 101/45 L 07/13/24 08:54 Pulse Ox 98 07/13/24 08:54 O2 Del Method Room Air 07/13/24 08:54 Course Vital Signs Vital signs: Vital Signs Temperature 98.6 F 07/13/24 08:54 Pulse Rate 71 07/13/24 08:54 Respiratory Rate 18 07/13/24 08:54 Blood Pressure 101/45 L 07/13/24 08:54 Pulse Oximetry 98 07/13/24 08:54 Oxygen Delivery Method Room Air 07/13/24 08:54 Temperature 98.6 F 07/13/24 08:54 Pulse Rate 71 07/13/24 08:54 Respiratory Rate 18 07/13/24 08:54 Blood Pressure 101/45 L 07/13/24 08:54 Pulse Oximetry 98 07/13/24 08:54 Oxygen Delivery Method Room Air 07/13/24 08:54 Medical Decision Making MDM Narrative Medical decision making narrative: Patient was given injection of Toradol. Education on not using heat, but using ice and stretching was discussed at bedside. Patient was shown exercises at bedside and on discharge paperwork. Patient was sent home with prescription for lidocaine and Robaxin. Patient was educated not to use heat. Patient was told to alternate Tylenol and anti-inflammatories. Patient is told to follow-up with PCP as well. Discharge Plan Discharge Chief Complaint: Back Pain/Injury Clinical Impression: Left lumbar pain, Strain of lumbar region Patient Disposition: Home, Self-Care Time of Disposition Decision: 09:27 Condition: Good Prescriptions / Home Meds: New methocarbamol 500 mg tablet 500 mg PO Q8H PRN (Reason: muscle pain) Qty: 10 0RF lidocaine [Lidoderm] 5 % adhesive patch,medicated 1 patch topical Q24H Qty: 15 0RF Rx Instructions: leave on most painful area for up to 12 hrs No Action citalopram 40 mg tablet 40 mg PO DAILY levothyroxine 88 mcg tablet 88 mcg PO DAILY omeprazole 20 mg capsule,delayed release(DR/EC) 20 mg PO DAILY calcium carbonate [Calcium 600] 600 mg calcium (1,500 mg) tablet 1,500 mg PO DAILY cholecalciferol (vitamin D3) 250 mcg (10,000 unit) capsule 10,000 unit PO DAILY thiamine HCl (vitamin B1) 100 mg tablet 100 mg PO TID mecobalamin (vitamin B12) 500 mcg tablet,chewable 500 mcg PO DAILY methocarbamol 750 mg tablet 750 mg PO TID PRN (Reason: pain) Qty: 20 0RF ondansetron 4 mg tablet,disintegrating 4 mg PO Q6H PRN (Reason: nausea and vomiting) Qty: 12 0RF amitriptyline 75 mg tablet Print Language: German Instructions: Acute Low Back Pain (ED), Lower Back Exercises (ED) Additional Instructions: Use ice 20 minutes on, 20 minutes off, do not use heat Lumbar stretching exercises as discussed at bedside and on discharge paperwork Alternate Tylenol and either Motrin, Advil, or ibuprofen every 4 hours to help with pain. Maximum dose of Tylenol is 3000 mg a day. Maximum dose of either Motrin, Advil, or ibuprofen is 2400 mg a day. Follow-up with PCP if you need additional formal physical therapy Referrals: ASHLEY HUIZAR [Primary Care Provider] - 1 week
== END 2024-07-13 09:42 | disposition home or self-care (01) ==
PROVIDERS: Emergency Provider Emergency Medicine; PCP Family Medicine
DX: S39.012A Strain of muscle, fascia and tendon of lower back, initial encounter (principal); M79.7 Fibromyalgia; M06.9 Rheumatoid arthritis, unspecified; M54.50 Low back pain, unspecified; X58.XXXA Exposure to other specified factors, initial encounter
CPT/HCPCS: 96372; 99284; J1885

== ENCOUNTER 2024-12-21 15:38 | Outpatient (OUT) | payer MEDICARE, MEDICAID, SELFPAY ==
--- OUTSIDE RECORDS SUMMARY | 2024-01-01 05:45 | XMS_ITS | Continuity of Care Document ---
Author [facility] [employer] [facility] Address [address] [place] [address] Phone Care Team Providers Care Uniform Patrol Police Officer Name Role Phone Cata Cabezas CNP Unavailable Unavailable Procedures Procedure Date OFFICE/OUTPATIENT VISIT, EST OFFICE/OUTPATIENT VISIT, EST POSTOP FOLLOW-UP VISIT VOID TICKET POSTOP FOLLOW-UP VISIT Sleeve Gastrectomy LAP SLEEVE GASTRECTOMY OFFICE/OUTPATIENT VISIT, EST PSYCH DIAGNOSTIC EVALUATION PSYCL/NRPSYC TST PHY/QHP [facility] PSYCL/NRPSYC TST PHY/QHP OFFICE/OUTPATIENT VISIT, [facility] Advance Directives Directive Yes / No Effective Date File Name No Information Encounters Encounter Description Practice Location Reason(s) For Visit Diagnoses Date Provider Providers Copied on Encounter OFFICE/OUTPATI ENT VISIT, [facility] [employer] [facility], [address] [place] [address], [id number], [place] tel:[phone] [facility] No Information Raulito Ivy. [address] [place] [address], [id number], [place]. tel:[phone] Referring Provider: Cata Cabezas, [address] [place] [address], [place], [address]. tel:[phone] OFFICE/OUTPATI ENT VISIT, [facility] [employer] [facility], [address] [place] [address], [id number], [place] tel:[phone] [facility] No Information Raulito Ivy. [address] [place] [address] [address], [place], [place], [id number], [place]. tel:[phone] Referring Provider: Cata Cabezas, [address] [place] [address] [address], [place], [address]. tel:[phone] [facility], [address] [place] [address] [address], [place], [id number], [place] tel:[phone] [facility] No Information Raulito Ivy. [address] [place] [address] [address], [place], [place], [id number], [place]. tel:[phone] Referring Provider: Cata Cabezas, [address] [place] [address] [address], [place], [address]. tel:[phone] [facility], [address] [place] [address] [address], [place], [place], [id number], [place] tel:[phone] [facility] No Information Svitlana Cardona. [address] [place] [address] [address], [place], [place], [id number], [place]. tel:[phone] Referring Provider: Brendan Corbin, [address] [place] [address] [address], [place], [address]. tel:[phone] [facility], [address] [place] [address] [address], [place], [place], [id number], [place] tel:[phone] [facility] No Information Raulito Ivy. [address] [place] [address] [address], [place], [id number], [place]. tel:[phone] Referring Provider: Cata Cabezas, [address] [place] [address] [address], [place], [address]. tel:[phone] [facility], [address] [place] [address] [address], [place], [place], [id number], [place] tel:[phone] [facility] IP No Information Raulito Cata. [address] [facility] [facility] [address], [place], [place], [id number], [place]. tel:[phone] Referring Provider: Catapurvi Cabezas, [address], [place], [address]. tel:[phone] [facility], [address] [place] [address] [address], [place], [place], [id number], [place] tel:[phone] [facility] IP No Information Svitlana Cardona. [address] [facility] [address], [place], [place], [id number], [place]. tel:[phone] Referring Provider: Brendan Corbin, [facility] [address] [facility] [address], [place], [address]. tel:[phone] OFFICE/OUTPATI ENT VISIT, [facility] [employer] [facility], [address] [place] [address] [address], [place], [id number], [place] tel:[phone] [facility] No Information Svitlana Cardona. [address] [place] [address] [address], [place], [id number], [place]. tel:[phone] Referring Provider: Brendan Corbin, [address] [facility] [address], [place], [address]. tel:[phone] PSYCH DIAGNOSTIC EVALUATION [facility], [address] [place] [address] [address], [place], [id number], [place] tel:[phone] [facility] No Information Danis Huston. [address] [place] [address] [address], [place], [place], [id number], [place]. tel:[phone] Referring Provider: Betzaida Moscoso, [address] [place] [address] [address], [place], [address]. tel:[phone] OFFICE/OUTPATI ENT VISIT, [facility] [employer] [facility], [address] [place] [address] [address], [place], [id number], [place] tel:[phone] [facility] No Information Svitlana Cardona. [address] [facility] [address], [place], [place], [id number], [place]. tel:[phone] Referring Provider: Brendan Corbin, [address] [facility] [address], [place], [address]. tel:[phone] Family History Family Member Type Diagnosis Age At Onset No Information Payers Payer name Insurance type Covered green party ID Authoriza tialex(s) Hum[employer] Choice And Gold Choice 16 [id number] Social History Type Description Quantity Date Captured Comments Sex Female Smoking Status No Information Chief Complaint And Reason For Visit No Information Reason For Referral Reason For Referral No Information Plan Of Treatment Date Type Action Status Appointment Sara Verduzco BOOKED History Of Present Illness Encounter Date Complaint History Of Prese nt Illness No Information Functional Status Date Functional Assessmen t No Information Instructions Date Instruction Additional Infor mation No Information Assessments Type Assessment Date No Information Patient Care Teams Name Effective Dates (start - stop) Status Members No Information
--- OUTSIDE RECORDS SUMMARY | 2024-08-24 05:41 | XMS_ITS ---
Author Organization [facility] in [place] Address [address] [place] [address] Care Team Providers Care Care Team Assistant Name Role Phone Silvia Mane Primary Care Provider REASON FOR VISIT sick Medications Medication SIG (Take, Route, Fr equency, Duration) Notes Start Date End Date Status Cefdinir 300 MG take 2x a day for 10 days Orally for 10 days 08/24/2024 Active Encounters Encounter Location Date Provider Diagnosis [facility] [address] [place] [address] 08/24/2024 Silvia Mane Plan Of Treatment Medication Medication Name Sig Start Date Stop Date Notes Cefdinir 300 MG take 2x a day for 10 days Orally for 10 days 08/24/2024 Next Appt Details Provider Name:Silvia morel, 03/23/2025 09:30:00 AM, [address] [place], [phone], Progress Notes * Anh SANDOVALneDOB:1970 ( 54 yo F)Acc No.[id number]:08/24/2024 Patient: Anh DENNISne :1970 A ge:54 Y S ex:Female Address:[address] [place] [address], [phone] * Refills Start Cefdinir Capsule, 300 MG, Orally, 20, take 2x a day for 10 days, 10 days, Refills=0 * true * Date: Generated for Marline wolf/Nuria/Le on: 0 12/21/2024 03:41 PM EDT
--- OUTSIDE RECORDS SUMMARY | 2024-09-21 10:15 | XMS_ITS ---
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 Name Role Phone Alhaji Silvia Primary Care Provider Allergies No Known Allergies REASON FOR VISIT follow up Medications Medication SIG (Take, Route, Frequency, Duration) Notes Start Date End Date Status ALPRAZolam 0.25 MG 1 tablet Orally Twic e a day prn anxiety for 30 days 09/21/2024 Active Levothyroxine Sodium 88 MCG TAKE 1 TABLE T BY MOUTH EVERY MORNING ON AN EMPTY STOMACH for 90 days Active Ondansetron HCl 4 MG 1 tablet Orally q6 hrs PRN for 5 days 08/10/2024 Active Vitamin B1 Active Vitamin D Active Multivitamin Active Nabumetone 500 MG Oral for 90 Days Active Omeprazole 20 MG 1 capsule 30 minutes before morning meal Orally Once a day Active Methocarbamol 500 MG Oral for 90 Days Active Amitriptyline HCl 75 MG Oral for 90 Days Active Calcium Active Citalopram Hydrobromide 40 MG TAKE 1 TABLET BY MOUTH DAILY for 90 days Active Social History Tobacco Use: Social History Observation Description Date Details (start date - stop date) Former Smoker NA - NA Tobacco Use/Smoking Question Answer Notes Patient is a former smoker How long has it been since you last smoked? 1-5 years Section Notes: Smoked 1ppd, for about 5 years QUIT SMOKING 06/18! Vital Signs Weight 190.6 lbs 09/21/2024 Height 68 in 09/21/2024 Blood pressure systolic 122 mm Hg 09/22/19 25 Blood pressure diastolic 76 mm Hg 025 Heart Rate 73 /min 09/21/2024 Respiratory Rate 16 /min 09/21/2024 BMI 28.98 kg/m2 09/21/2024 Oximetry 99 % 09/21/2024 weight up 22pounds in last 8 months, BP stable Encounters Encounter Location Date Provider Diagnosis [facility] [address] [place] [address] 09/21/2024 Silvia Mane Acquired hypothyroid ism E03.9 ; Rheumatoid arthritis, unspecified M06.9 ; Recurrent major depressive disorder, in full remission F33.42 ; Gastro-esophageal reflux disease without esophagitis K21.9 and Anxiety disorder, unspecified F41.9 Assessments Encounter Date Diagnosis (ICD Code) Assessment Notes Treatment Notes Treatment Clinical Notes Section Notes 09/21/2024 Acquired hypothyroidism (ICD-10 - E03.9) Stable, continue current med 09/21/2024 Rheumatoid arthritis, unspecified (ICD-10 - M06.9) Stable, continue current meds and to follow up with rheumatology 09/21/2024 Recurrent major depressive disorder, in full remission (ICD-10 - F33.42) Stable on citalopram 09/21/2024 Gastro-esophageal reflux disease without esophagitis (ICD-10 - K21.9) Stable with current management 09/21/2024 Anxiety disorder, unspecified (ICD-10 - F41.9) Refill of xanax to take as needed for anxiety Plan Of Treatment Medication Medication Name Sig Start Date Stop Date Notes ALPRAZolam 0.25 MG 1 tablet Orally Twic e a day prn anxiety for 30 days 09/21/2024 Levothyroxine Sodium 88 MCG TAKE 1 TABLE T BY MOUTH EVERY MORNING ON AN EMPTY STOMACH for 90 days Citalopram Hydrobromide 40 MG TAKE 1 TAB LET BY MOUTH DAILY for 90 days Treatment Notes Assessment Notes Acquired hypothyroidism Stable, continue current med Rheumatoid arthritis, unspecified Stable , continue current meds and to follow up with rheumatology Recurrent major depressive d isorder, in full remission Stable on citalopram Gastro-esophageal reflux dis ease without esophagitis Stable with current management Anxiety disorder, unspecified Refill of xanax to take as needed for anxiety Next Appt Details Follow Up: 6months, Reason: [facility] Provider Name:Silvia morel, 03/23/2025 09:30:00 AM, [address] [place], [address], Progress Notes * Wale SANDOVALOB:1970 ( 54 yo F)Acc No.[id number]:09/21/2024 Established Patient: Sara DENNIS Provider: Jose Juan Mane MD :1970 A ge:54 Y S ex:Female Date:09/21/2024 Address:[address] [place] [address], [id number] Check In:01:36 PM ESTCheck O ut:03:01 PM EST Subjective: * Chief Complaints: * F ollow up * HPI: G eneral: patient presents today for f/u- RM Here for follow up. Had norovirus recently and was very sick for a few days. Has gained some weight back, but still very stable, and doing well since her weight loss surgery! ANxiety has been worse lately - would like a new script for the xanax, to take as needed. Gets SOB when her anxiety goes up, feels like she has to keep yawning Continues on citalopram 40mg, which she does feel is helpful RA and fibro- had injections in shoulder and hip per Rheum. D epression Screening: PHQ-2 (2015 Edition) L ittle interest or pleasure in doing things??Not at all F eeling down, depressed, or hopeless? N ot at all T otal Score 0 * ROS: G eneral/Constitutional: Chills d enies. F atigue d enies. F ever d enies. H EENT: Nasal congestion d enies. S ore throat d enies.?Runny Nose D enies. E ar Pain D enies. C ardiovascular: Lower Extremity Edema d enies. C hest pain d enies.?Palpitations d enies. R espiratory: Cough d enies. S hortness of breath d enies. W heezing d enies. G astrointestinal: Abdominal pain d enies. C onstipation d enies. D iarrhea d enies. N ausea d enies. G enitourinary: Urgency d enies. F requent urination d enies. P ainful urination d enies. M usculoskeletal: Body aches D enies. P ainful joints d enies. W eakness d enies. S kin: Rash d enies. N eurologic: Dizziness d enies. H eadache d enies. ? P sychiatric: Depression d enies. A nxiety a dmits. D ifficulty sleeping d enies. * Active Problem List E03.9 Acquired hypothyroid ism Modified On:07/22/2023U Status:confirmed F33.42 Recurrent major depr essive disorder, in full remission Modified On:07/22/2023 Status:confirmed M06.9 Rheumatoid arthritis , unspecified Modified On:12/05/2022 Status:confirmed E78.2 Mixed hyperlipidemia Modified On:12/05/2022 Status:confirmed J45.30 Mild persistent asth ma, unspecified whether complicated Modified On:05/08/2022 Status:confirmed Z90.710 Acquired absence of cervix Modified On:05/08/2022U Status:confirmed I10 Essential (primary) hypertension Modified On:12/05/2022 Status:confirmed F41.9 Anxiety disorder, un specified Modified On:03/26/2023 Status:confirmed K21.9 Gastro-esophageal re flux disease without esophagitis Modified On:02/13/2024 Status:confirmed * Medical History: * Surgical History: C section 10/26/98Csection 06/25/03Bilateral carpal tunnel- DR Mendoza Cholecystectomy- Dr Wick L Plantar Fascitis - Dr Wahl Tonsils Lt shoulder Partial Hysterectomy 2010Oophorectomies (bilat)- Dr Ko 2015colonoscopy 08/15/20Gastric Sleeve - Dr. Shane 12/31/22 * Hospitalization/Major Diagno stic Procedure: N o Hospitalization History. * Family History: F ather: 75 yrs, of [place], diagnosed with Other malignant neoplasm of unspecified site, Unspecified essential hypertension, Unspecified heart disease. M other: alive, diagnosed with Diabetes mellitus without mention of complication, type II or unspecified type, not stated as uncontrolled, Unspecified essential hypertension. * Social History: T obacco Use: T obacco Use/Smoking P atient is a f ormer smoker H ow long has it been since you last smoked??1-5 years S moked 1ppd, for about 5 years QUIT SMOKING 06/18!. * Medications: T akingAmitriptyline HCl 75 MG Tablet Oral Calcium Citalopram Hydrobromide 40 MG Tablet TAKE 1 TABLET BY MOUTH DAILY Levothyroxine Sodium 88 MCG Tablet TAKE 1 TABLET BY MOUTH EVERY MORNING ON AN EMPTY STOMACH Methocarbamol 500 MG Tablet Oral Multivitamin Nabumetone 500 MG Tablet Oral Omeprazole 20 MG Capsule Delayed Release 1 capsule 30 minutes before morning meal Orally Once a day Ondansetron HCl 4 MG Tablet 1 tablet Orally q6 hrs PRN Vitamin B1 Vitamin D Taking Amitriptyline HCl 75 MG Tablet Oral Taking Calcium Taking Citalopram Hydrobromide 40 MG Tablet TAKE 1 TABLET BY MOUTH DAILY Taking Levothyroxine Sodium 88 MCG Tablet TAKE 1 TABLET BY MOUTH EVERY MORNING ON AN EMPTY STOMACH Taking Methocarbamol 500 MG Tablet Oral Taking Multivitamin Taking Nabumetone 500 MG Tablet Oral Taking Omeprazole 20 MG Capsule Delayed Release 1 capsule 30 minutes before morning meal Orally Once a day Taking Ondansetron HCl 4 MG Tablet 1 tablet Orally q6 hrs PRN Taking Vitamin B1 Taking Vitamin D DiscontinuedAzithromycin 250 MG Tablet 2 tabs day one, 1 tab daily for four more days Orally once a day Azithromycin 250 MG Tablet 2 tabs today, then 1 tab daily for 4 more days Orally Once a day Cefdinir 300 MG Capsule one capsule Orally twice a day Cefdinir 300 MG Capsule take 2x a day for 10 days Orally Medication List reviewed and reconciled with the patientDiscontinued Azithromycin 250 MG Tablet 2 tabs day one, 1 tab daily for four more days Orally once a day Discontinued Azithromycin 250 MG Tablet 2 tabs today, then 1 tab daily for 4 more days Orally Once a day Discontinued Cefdinir 300 MG Capsule one capsule Orally twice a day Discontinued Cefdinir 300 MG Capsule take 2x a day for 10 days Orally Medication List reviewed and reconciled with the patient * Allergies: N .K.D.A.no[Allergies Verified] Objective: * Vitals: W t:190.6lbs, Ht: 68 in, BP:122/76mm Hg, HR:73/min, RR:16/min, BMI:28.98Index, Oxygen sat %:99%, Ht-cm: 172.72 cm, Wt-k.46 kg. weight up 22pounds in last 8months, BP stable. * Examination: G eneral Examination: GENERAL APPEARANCE: N o acute distress, Well hydrated, Well Developed. NECK: N cathie supple, No thyromegaly, No cervical LAD. LUNGS: C lear to auscultation bilaterally, No wheezes, rales, rhonchi. CARDIO: R egular rate and rhythm, No murmurs, rubs, gallops. ABDOMEN: S oft, nontender, not distended, normal bowel sounds. SKIN: Warm and Dry, No suspicious lesions. EXTREMITIES: No edema. NEUROLOGIC/PSYCHIATRIC: A lert, Oriented,mood and affect appropriate. Assessment: * Assessment: 1. A cquired hypothyroidism - E03.9 (Primary) 2 . R heumatoid arthritis, unspecified - M06.9 3 . R ecurrent major depressive disorder, in full remission - F33.42 4 . G herbert-esophageal reflux disease without esophagitis - K21.9 & #160; 5 . A nxiety disorder, unspecified - F41.9 Plan: * Treatment: 2. R heumatoid arthritis, unspecified Notes: Stable, continue current meds and to follow up with rheumatology 3. R ecurrent major depressive disorder, in full remission Refill Citalopram Hydrobromide Tablet, 40 MG, TAKE 1 TABLET BY MOUTH DAILY, 90 days, 90, Refills 1.? Notes: Stable on citalopram 4. G herbert-esophageal reflux disease without esophagitis Notes: Stable with current management 5. A nxiety disorder, unspecified Start ALPRAZolam Tablet, 0.25 MG, 1 tablet, Orally, Twice a day prn anxiety, 30 days, 60, Refills 1. Notes: Refill of xanax to take as needed for anxiety * Procedure Codes: * Follow Up: 6 months (Reason: [facility]) * * Sign off status: Completed Visit Status: C HK (Check Out) true * Provider: Jose Juan Mane MD Date: 0 09/21/2024 Generated for Marline wolf/Nuria/Luisransmitting on: 0 12/21/2024 03:41 PM EDT History and Physical Notes * HPI (History of Present Illness) Category Sub-Category Detail Notes Category Not es Depression Screening PHQ-2 (2015 Edition) Little interest or pleasure in doing things?: Not at all Feeling down, depressed, or hopeless?: N ot at all Total Score: 0 Examination Category Sub-Category Detail Notes Category Not es General Examination GENERAL APPEARANCE: No acute distress, Well hydrated, Well Developed NECK: Neck supple, No thyr omegaly, No cervical LAD CARDIO: Regular rate and rhy thm, No murmurs, rubs, gallops LUNGS: Clear to auscultatio n bilaterally, No wheezes, rales, rhonchi ABDOMEN: Soft, nontender, not distended, normal bowel sounds SKIN: Warm and Dry, No alba picious lesions EXTREMITIES: No edema ENMT: NEUROLOGIC/PSYCHIATRIC: Alert, Oriented, mood and affect appropriate
--- OUTSIDE RECORDS SUMMARY | 2024-12-12 15:14 | XMS_ITS | Encounter Summary ---
Author Organization [facility] tem Address [id number] [address] [place] [address] Care Team Providers Care Recruiting Specialist Name Role Phone Silvia Mane MD Primary Care Provider Reason for Visit * Reason Comments Dizziness Vertigo Encounter Details Date Type Department Care Team ([facility] st Contact Info) Description 12/12/2024 3:14 PM EDT - 12/12/2024 5:39 PM EDT Emergency [facility] - Emergency [address] [place] [address] Deric Herman, [address] [place] [address] Vertigo (Primary Dx); Hypokalemia Discharge Disposition: Home Social History Tobacco Use Types Packs/Day Years Used Date Smoking Tobacco: Former Cigarettes 0.5 4 Smokeless Tobacco: Never Comments:quitting smoking Alcohol Use Standard Drinks/Week Comments Yes 0 (1 standard drink = 0.6 oz pur e alcohol) social Childcare Answer Date Recorded Childcare Unknown 11/05/2018 Employment Answer Date Recorded Employment Unknown 11/05/2018 Hunger Screening Answer Date Recorded Within the past 12 months we worried whether our food would run out before we got money to buy more. Never True 12/12/2024 Within the past 12 months th e food we bought just didn't last and we didn't have money to get more. Never True 12/12/2024 Purpose - Life Answer Date Recorded Purpose and direction in life Unknown Comments No Sex and Gender Information Value Date Recorded Sex Assigned at Not on file Legal Sex Female 11:24 AM EDT Gender Identity Not on file Sexual Orientation Not on file documented as of this encounter Last Filed Vital Signs Vital Sign Reading Time Taken Comments Blood Pressure 117/63 12/12/2024 5:00 PM EDT Pulse 81 12/12/2024 5:00 PM EDT Temperature 36.3 C (97.4 F) 12/12/2024 3:15 PM EDT Respiratory Rate 18 12/12/2024 5:00 PM EDT Oxygen Saturation 100% 12/12/2024 5:00 PM EDT Inhaled Oxygen Concentration - - Weight 86.2 kg (190 lb) 12/12/2024 3:15 PM EDT Height 170.2 cm (5' 7 ) 12/12/2024 3:15 PM EDT Body Mass Index 29.76 12/12/2024 3:15 PM EDT documented in this encounter Discharge Instructions * Discharge Instructions* RACHEL Ivy - 12/12/2024 5:23 PM EDT Meclizine as needed for dizziness Drink plenty of fluids Change positions slowly from lying to sitting to standing Your primary care provider Return to ER immediately for new worse or worrisome concerns * Attachments The following attachments cannot be sent through Care Everywhere. * Vertigo (a type of dizziness) ([place]man[place]) documented in this encounter Medications at Time of Discharge ALPRAZolam (XANAX) 0.25 mg tablet 1 tablet Orally Twice a day prn anxiety for 30 days 09/21/2024 amitriptyline (ELAVIL) 75 mg tabletIndications:F ibromyalgia TAKE ONE TABLET BY MOUTH ONCE NIGHTLY AT 8 PM. 90 tablet 3 09/03/2024 atorvastatin (LIPITOR) 10 mg tablet Take 1 tablet (10 mg total) by mouth in the morning. benzonatate (TESSALON PERLES) 100 mg capsule Take 1 capsule (100 mg total) by mouth every 8 (eight) hours. 21 capsule 05/16/2022 budesonide-formoter ol (SYMBICORT) 160-4.5 mcg/actuation inhaler Inhale 2 puffs in the morning and 2 puffs before bedtime. cefDINIR (OMNICEF) 300 mg capsule Take 1 capsule (300 mg total) by mouth in the morning and 1 capsule (300 mg total) before bedtime. citalopram (CeleXA) 40 mg tablet Take 1 tablet (40 mg total) by mouth in the morning. 07/17/2017 fluticasone propionate (FLONASE) 50 mcg/actuation nasal spray Administer 1 spray into each nostril in the morning. 16 g 11/19/2021 levothyroxine (SYNTHROID, LEVOTHROID) 88 MCG tablet Take 1 tablet (88 mcg total) by mouth in the morning. meclizine (ANTIVERT) 25 mg tablet Take 1 tablet (25 mg total) by mouth 3 (three) times a day as needed for dizziness. 20 tablet 12/12/2024 methocarbamoL (ROBAXIN) 750 mg tabletIndications:F ibromyalgia Take 1 tablet (750 mg total) by mouth once daily at bedtime. 90 tablet 3 09/03/2024 [id number]-syeu- [id number]-hb#[id number] mg-mcg-mcg tablet Take by mouth. nabumetone (RELAFEN) 500 mg tabletIndications:F ibromyalgia One tablet daily for pain as needed 90 tablet 3 09/03/2024 omeprazole (PriLOSEC) 20 mg capsule Take 1 capsule (20 mg total) by mouth before breakfast. 1 CAPSULE 30 MINUTES BEFORE MORNING MEAL ORALLY ONCE A DAY ondansetron ODT (ZOFRAN ODT) 4 mg disintegrating tablet Dissolve 1 tablet (4 mg total) on tongue 3 (three) times a day as needed for nausea for up to 3 doses. 3 tablet 08/11/2024 promethazine (PHENERGAN) 25 mg tablet Take 1 tablet (25 mg total) by mouth every 6 (six) hours as needed for nausea or vomiting. 15 tablet 07/08/2021 varenicline (CHANTIX MORENO) 0.5 mg (11)- 1 mg (42) tablet Chantix Starting Month Box 0.5 mg (11)-1 mg (42) tablets in dose pack documented as of this encounter ED Notes * Sarahy Garcia RN - 12/12/2024 3:14 PM EDT Pt states that she felt dizzy and had nausea today with vomiting. Pt states she has hx of vertigo, and this feels similar, just a bit worse d/t the vomiting. documented in this encounter Plan of Treatment Upcoming Encounters Date Type Department Care Team (Late st Contact Info) Description 03/04/2025 11:30 AM EDT Office Visit [facility] [address] [place] [id number] Tara Smith MD [address] [facility] [address] [place] [address] Pending Results Name Type Priority Associated Diagnoses Date /Time ED NIHSS And Thrombolytic MD Screening Procedures Routine 12/12/2024 3:29 PM EDT documented as of this encounter Procedures Procedure Name Priority Date/Time Associated Diagnosis Comments POCT NURSING URINE MACROSCOPIC UA Routine 12/12/2024 4:50 PM EDT TROP I, HIGH SENSITIVITY 1 HOUR STAT 12/12/2024 4:49 PM EDT ER EXTRA URINE MARBLE STAT 12/12/2024 4:37 PM EDT ER EXTRA URINE CULTURE STAT 4:37 PM EDT ER EXTRA URINE STAT 12/12/2024 4:37 PM EDT TROPONIN I, HIGH SENSITIVITY 0 HOUR STAT 12/12/2024 3:44 PM EDT EXTRA TUBES BLUE TOP Routine 12/12/2024 3:44 PM EDT TROPONIN I, HIGH SENSITIVITY 0 HOUR STAT 12/12/2024 3:44 PM EDT EXTRA TUBES Routine 12/12/2024 3:44 PM EDT CBC WITH AUTO DIFFERENTIAL STAT 12/12/2024 3:44 PM EDT MAGNESIUM STAT 12/12/2024 3:44 PM EDT COMPREHENSIVE METABOLIC PANEL STAT 12/12/2024 3:44 PM EDT ED PHYSICIAN NIHSS AND THROMBOLYTIC DECISION Routine 12/12/2024 3:29 PM EDT documented in this encounter Results * (ABNORMAL) POCT Nursing Urine Macroscopic UA (12/12/2024 4:50 PM EDT) POC Urine Specific [place] 1.020 1.010, 1.015, 1.020, 1.025 12/12/2024 4:42 PM EDT [facility] POC Urine Leukocyte Esterase Negative Negative 12/12/2024 4:42 PM EDT [facility] POC Urine Nitrite Negative Negative 12/12/2024 4:42 PM EDT [facility] POC Urine pH 8.5 5.0, 6.0, 6.5, 7.0, 7.5, 8.0, 8.5, 5.5 12/12/2024 4:42 PM EDT [facility] POC Urine Protein Negative Negative 12/12/2024 4:42 PM EDT [facility] POC Urine Glucose Negative Negative 12/12/2024 4:42 PM EDT [facility] POC Urine Ketones 15 mg/dL(A) Negative 12/12/2024 4:42 PM EDT [facility] POC Urine Urobilinogen 0.2 E.U./dL 12/12/2024 4:42 PM EDT [facility] POC Urine Bilirubin Negative Negative 12/12/2024 4:42 PM EDT [facility] POC Urine Blood/HGB Negative Negative 12/12/2024 4:42 PM EDT [facility] Urine 12/12/2024 4:50 PM EDT 12/12/2024 4:42 PM EDT us Deric Herman DO POINT OF CARE TEST ORDERABLE S Final Result Performing Organization Address City/[facility]/ZIP Co de Phone Number [address] [place] [address], [place] * Troponin I, High Sensitivity 1 Hour (12/12/2024 4:49 PM EDT) TROPONIN I, HIGH SENSITIVITY 3 <16 ng/L 12/12/2024 5:34 PM EDT [facility] Blood Venous blood / Unknown Venipuncture / Unknown 12/12/2024 4:49 PM EDT 12/12/2024 4:57 PM EDT us Leeanna Ardon COMPUTED TOMOGRAPHY SCANNER OPERATOR-COOKER LOADER LAB BLOOD ORDERABLES Final Result Performing Organization Address [facility] Co de Phone Number [address] [place] [address], [place] * Extra Urine [place] (12/12/2024 4:37 PM EDT) Extra Tube Auto Resulted 12/12/2024 6:01 PM EDT [facility] Urine Urine specimen collection, clean catch / Unknown 12/12/2024 4:37 PM EDT 12/12/2024 5:15 PM EDT us Leeanna Ardon COMPUTED TOMOGRAPHY SCANNER OPERATOR-COOKER LOADER URINE ORDERABLES Veronica l Result Performing Organization Address City/[facility]/ZIP Co de Phone Number [address] [place] [address], [place] * Extra Urine Culture (12/12/2024 4:37 PM EDT) Extra Tube Auto Resulted 12/12/2024 6:01 PM EDT [facility] Urine Urine specimen collection, clean catch / Unknown 12/12/2024 4:37 PM EDT 12/12/2024 5:15 PM EDT us Leeanna Ardon COMPUTED TOMOGRAPHY SCANNER OPERATOR-COOKER LOADER URINE ORDERABLES Veronica l Result Performing Organization Address City/[facility]/ZIP Co de Phone Number [address] [place] [address], [place] * Extra Urine (12/12/2024 4:37 PM EDT) Extra Tube Auto Resulted 12/12/2024 6:01 PM EDT [facility] Urine Urine specimen collection, clean catch / Unknown 12/12/2024 4:37 PM EDT 12/12/2024 5:15 PM EDT us Leeanna Rodriguez Kurtisgrace COMPUTED TOMOGRAPHY SCANNER OPERATOR-COOKER LOADER URINE ORDERABLES Veronica l Result Performing Organization Address [facility] Co de Phone Number [address] [place] [address], [place] * Light Blue Top (12/12/2024 3:44 PM EDT) Extra Tube Auto Resulted 12/12/2024 5:01 PM EDT [facility] Blood Venous blood / Unknown Venipuncture / Unknown 12/12/2024 3:44 PM EDT 12/12/2024 3:46 PM EDT us Deric Herman DO LAB BLOOD ORDERABLES Final R esult Performing Organization Address City/[facility] Co de Phone Number [address] [place] [address], [place] * Magnesium (12/12/2024 3:44 PM EDT) MAGNESIUM 1.9 1.8 - 2.6 mg/dL 12/12/2024 4:05 PM EDT [facility] Blood Venous blood / Unknown Venipuncture / Unknown 12/12/2024 3:44 PM EDT 12/12/2024 3:46 PM EDT Leeanna Ardon COMPUTED TOMOGRAPHY SCANNER OPERATOR-[facility] LAB BLOOD ORDERABLES Final Result Performing Organization Address City/[facility]/ZIP Co de Phone Number [address] [place] [address], [place] * Troponin I, High Sensitivity 0 Hour (12/12/2024 3:44 PM EDT) [facility] TROPONIN I, HIGH SENSITIVITY 2 <16 ng/L 12/12/2024 4:14 PM EDT [facility] Blood Venous blood / Unknown Venipuncture / Unknown 12/12/2024 3:44 PM EDT 12/12/2024 3:46 PM EDT Leeanna Ardon COMPUTED TOMOGRAPHY SCANNER OPERATOR-[facility] LAB BLOOD ORDERABLES Final Result Performing Organization Address City/[facility] Co de Phone Number [address] [place] [address], [place] * (ABNORMAL) Comprehensive metabolic panel (12/12/2024 3:44 PM EDT) Pathologist [facility] SODIUM 138 134 - 146 mmol/L 12/12/2024 4:05 PM EDT [facility] POTASSIUM 3.2(L) 3.5 - 5.0 mmol/L 12/12/2024 4:05 PM EDT [facility] CHLORIDE 105 98 - 109 mmol/L 12/12/2024 4:05 PM EDT [facility] CARBON DIOXIDE 20(L) 22 - 32 mmol/L 12/12/2024 4:05 PM EDT [facility] ANION GAP 13 5 - 15 mmol/L 12/12/2024 4:05 PM EDT [facility] BLOOD UREA NITROGEN 20 5 - 23 mg/dL 12/12/2024 4:05 PM EDT [facility] CREATININE 0.70 0.40 - 1.00 mg/dL 12/12/2024 4:05 PM EDT [facility] Comment:METHOD TRACEABLE TO IDDC STANDARD GLUCOSE 119(H) 65 - 99 mg/dL 12/12/2024 4:05 PM EDT [facility] CALCIUM 8.9 8.5 - 10.5 mg/dL 12/12/2024 4:05 PM EDT [facility] TOTAL PROTEIN 6.5 6.0 - 8.0 g/dL 12/12/2024 4:05 PM EDT [facility] ALBUMIN 3.9 3.2 - 5.3 g/dL 12/12/2024 4:05 PM EDT [facility] ALKALINE PHOSPHATASE 55 39 - 130 U/L 12/12/2024 4:05 PM EDT [facility] AST 18 <=41 U/L 12/12/2024 4:05 PM EDT [facility] ALT 16 <=31 U/L 12/12/2024 4:05 PM EDT [facility] BILIRUBIN,TOTAL 0.7 0.3 - 1.2 mg/dL 12/12/2024 4:05 PM EDT [facility] EGFR Non-Race Dependent >90 >=60 ml/min/1.7 3sq.m 12/12/2024 4:05 PM EDT [facility] Comment: eGFR not reported due to non-numeric value for Creatinine. Reported eGFR is based on the CKD-EPI 2020 equation that does not use a race coefficient. Blood Venous blood / Unknown Venipuncture / Unknown 12/12/2024 3:44 PM EDT 12/12/2024 3:46 PM EDT us Leeanna Ardon COMPUTED TOMOGRAPHY SCANNER OPERATOR-COOKER LOADER LAB BLOOD ORDERABLES Final Result [facility] [address] [place] [address], [place] * CBC auto differential (12/12/2024 3:44 PM EDT) WBC 6.7 4 - 11 x10E9/L 12/12/2024 3:50 PM EDT [facility] RBC Count 4.37 3.8 - 5.2 X10E12/L 12/12/2024 3:50 PM EDT [facility] Hemoglobin 12.8 11.7 - 15.5 g/dL 12/12/2024 3:50 PM EDT [facility] Hematocrit 36.8 35 - 47 % 12/12/2024 3:50 PM EDT [facility] MCV 84 80 - 100 fL 12/12/2024 3:50 PM EDT [facility] MCH 29.3 27 - 34 pg 12/12/2024 3:50 PM EDT [facility] MCHC 34.9 32 - 36 g/dL 12/12/2024 3:50 PM EDT [facility] RDW 12.3 11.5 - 15 % 12/12/2024 3:50 PM EDT [facility] Platelet Count 234 150 - 450 X10E9/L 12/12/2024 3:50 PM EDT [facility] MPV 8.9 7 - 12 fL 12/12/2024 3:50 PM EDT [facility] Neutrophils % 58.5 % 12/12/2024 3:50 PM EDT [facility] Lymphocytes % 33.0 % 12/12/2024 3:50 PM EDT [facility] Monocytes % 6.3 % 12/12/2024 3:50 PM EDT [facility] Eosinophils % 1.0 % 12/12/2024 3:50 PM EDT [facility] Basophils % 1.2 % 12/12/2024 3:50 PM EDT [facility] Neutrophils Absolute (A) 3.9 1.5 - 6.6 10*3/uL 12/12/2024 3:50 PM EDT [facility] Lymphocytes Absolute 2.2 1.0 - 3.5 10*3/uL 12/12/2024 3:50 PM EDT [facility] Monocytes Absolute 0.4 0.0 - 0.9 10*3/uL 12/12/2024 3:50 PM EDT [facility] Eosinophils Absolute 0.1 0.0 - 0.4 10*3/uL 12/12/2024 3:50 PM EDT [facility] Basophils Absolute 0.1 0.0 - 0.2 10*3/uL 12/12/2024 3:50 PM EDT [facility] Differential Type AUTOMATED DIFFERENTIAL 12/12/2024 3:50 PM EDT [facility] Blood Venous blood / Unknown Venipuncture / Unknown 12/12/2024 3:44 PM EDT 12/12/2024 3:46 PM EDT us Leeanna Ardon COMPUTED TOMOGRAPHY SCANNER OPERATOR-COOKER LOADER LAB BLOOD ORDERABLES Final Result [facility] [address] [place] [address], documented in this encounter Visit Diagnoses Diagnosis Vertigo- Primary Dizziness and giddiness Hypokalemia Hypopotassemia documented in this encounter Administered Medications Inactive Administered Medications - up to 3 most recent administrations Medication Order MAR Action Action Date Dose Rate Site meclizine (ANTIVERT) tablet 50 mg 50 mg, oral, Once, On 12/12/24 at 1530, For 1 dose, Look-alike/sound-alike medication - verify indication for use. Given 12/12/2024 3:32 PM EDT 50 mg potassium chloride (KLOR-CON M 20) CR tablet 40 mEq 40 mEq, oral, Once, On 12/12/24 at 1725, For 1 dose, Do not crush or chew. Given 12/12/2024 5:26 PM EDT 40 mEq prochlorperazine (COMPAZINE) injection 10 mg 10 mg, intravenous, Once, On 12/12/24 at 1535, For 1 dose, When administered via IV Push, do not exceed 5 mg per minute Given 12/12/2024 3:37 PM EDT 10 mg sodium chloride 0.9 % bolus 1,000 mL, intravenous, at 984 mL/hr, Administer over 61 Minutes, Once, On 12/12/24 at 1530, For 1 dose New Bag 12/12/2024 3:37 PM EDT 1,000 mL 984 mL/hr sodium chloride 0.9 % flush 3 mL 3 mL, intravenous, As needed, line care, before and after each intermittent use, Starting on 12/12/24 at 1527 documented in this encounter Active and Recently Administered Medications Times are shown in EDT. Scheduled Medication Order 12/10/2024 12/11/2024 12/12/2024 meclizine (ANTIVERT) tablet 50 mg (COMPLETED) 50 mg, oral, Once, On 12/12/24 at 1530, For 1 dose, Look-alike/sound-alike medication - verify indication for use. 153 (Given - Provid er: Jam Denton) potassium chloride (KLOR-CON M 20) CR tablet 40 mEq (COMPLETED) 40 mEq, oral, Once, On 12/12/24 at 1725, For 1 dose, Do not crush or chew. 1726 (Given - Provid er: Kimberleistan Denton) prochlorperazine (COMPAZINE) injection 10 mg (COMPLETED) 10 mg, intravenous, Once, On 12/12/24 at 1535, For 1 dose, When administered via IV Push, do not exceed 5 mg per minute 1537 (Given - Provid er: Celialeistan Ednton) sodium chloride 0.9 % bolus (COMPLETED) 1,000 mL, intravenous, at 984 mL/hr, Administer over 61 Minutes, Once, On 12/12/24 at 1530, For 1 dose 1537 (New Bag - Prov ider: Jam Denton)1646 (Stop Bag - Provider: Jam Denton) PRN Medication Order 12/10/2024 12/11/2024 12/12/2024 sodium chloride 0.9 % flush 3 mL 3 mL, intravenous, As needed, line care, before and after each intermittent use, Starting on 12/12/24 at 1527 documented in this encounter Additional Health Concerns Assessment Noted Time A Body Mass Index follow-up plan has been documented for the patient 09/12/2020 9:03 AM EDT documented as of this encounter Care Teams Recruiting Specialist Relationship Specialty Start Date End Date Silvia Mane MD [address] [place] [phone] PCP - General Family Medicine 08/11/24 documented as of this encounter
--- OUTSIDE RECORDS SUMMARY | 2024-12-21 15:41 | XMS_ITS | Patient Health Record ---
Author Organization [facility] Address [address] [place] [address] Care Team Providers Care Automobile Technician Name Role Phone Silvia Mane Primary Care Provider Allergies No Known Allergies Results Component Value Reference Range Notes T4 FREE and TSH Reviewed date:11/05/2024 12:44:29 PM Interpretation: Performing Lab:[facility], [address] [place], [address] Notes/Report: FACILITY: DR [facility] - OFFICE [id number] T4 - FREE 1.02 (0.64 - 1.79) UG/DL hTSH 1.82 (0.470 - 4.680) mIU/L Reason For Referral No Information Medications Medication SIG (Take, Route, Frequency, Duration) Notes Start Date End Date Status Methocarbamol 500 MG Oral for 90 Days Active Multivitamin Active Amitriptyline HCl 75 MG Oral for 90 Days Active Calcium Active Citalopram Hydrobromide 40 MG TAKE 1 TABLET BY MOUTH DAILY for 90 days Active Levothyroxine Sodium 88 MCG TAKE 1 TABLET BY MOUTH EVERY MORNING ON AN EMPTY STOMACH for 90 days Active Omeprazole 20 MG 1 capsule 30 minutes before morning meal Orally Once a day Active Ondansetron HCl 4 MG 1 tablet Orally q6 hrs PRN for 5 days 08/10/2024 Active Meclizine HCl 50 MG 1 tablet as needed Orally every 12 hrs from ER patient has not needed it Active Vitamin B1 Active ALPRAZolam 0.25 MG 1 tablet Orally Twice a day prn anxiety for 30 days 09/21/2024 Active Vitamin D Active Nabumetone 500 MG Oral for 90 Days Active Immunizations Vaccine Route Administration Date Status Comme nts Flu, Flucelvax (22250) 2 yrs +, single-dose syringe (7982-7276) Unknown 03/21/2022 Administered Flu, FluLaval (21933) 6 mos and older, single-dose syringe Unknown 03/23/2024 Administered SARS-COV-2 (COVID 19 Moderna - 100mcg/0.5mL) Unknown 08/06/2020 Administered SARS-COV-2 (COVID 19 Moderna - 100mcg/0.5mL) Unknown 09/03/2020 Administered Spikevax Moderna Syringe Pre -Filled 50 mcg/0.5 mL Unknown 05/28/2023 Administered Tdap Unknown 03/01/2017 Administered Social History Tobacco Use: Social History Observation Description Date Details (start date - stop date) Former Smoker NA - NA Tobacco Use/Smoking Question Answer Notes Patient is a former smoker How long has it been since you last smoked? 1-5 years Alcohol Screen (Audit-C) Question Answer Notes Did you have a drink containing alcohol in the p ast year? No Points 0 Interpretation Negative Section Notes: SMoking 1ppd, for about 5 ye ars SMoking 1ppd, for about 5 ye ars SMoking 1ppd, for about 5 ye ars SMoking 1ppd, for about 5 ye ars SMoking 1ppd, for about 5 years QUIT SMOKING 06/18! Smoked 1ppd, for about 5 years QUIT SMOKING 06/18! Smoked 1ppd, for about 5 years QUIT SMOKING 06/18! Smoked 1ppd, for about 5 years QUIT SMOKING 06/18! Problems Problem Type SNOMED Code ICD Code Onset Dates Problem Status W/U Status Risk Notes Problem 36923175 Essential (primary) hypertension (I10) Active confirmed Problem 536698445 Gastro-esophagea l reflux disease without esophagitis (K21.9) Active confirmed Problem 037020870 Mixed hyperlipidemia (E78.2) Active confirmed Problem 13538933 Anxiety disorder , unspecified (F41.9) Active confirmed Problem 67949518 Rheumatoid arthritis, unspecified (M06.9) Active confirmed Problem 114813918 Acquired hypothyroidism (E03.9) Active confirmed Problem 74495511 Recurrent major depressive disorder, in full remission (F33.42) Active confirmed Problem 903000360 Mild persistent asthma, unspecified whether complicated (J45.30) Active confirmed Problem 823966967045548 Acquired absence of cervix (Z90.710) Active confirmed Vital Signs Heart Rate 65 /min 12/21/2024 Respiratory Rate 16 /min 12/21/2024 Oximetry 99 % 12/21/2024 Blood pressure diastolic 82 mm Hg 12/21/2024 Height 68 in 12/21/2024 Blood pressure systolic 126 mm Hg 12/21/2024 Weight 193.2 lbs 12/21/2024 BMI 29.37 kg/m2 12/21/2024 Encounters Encounter Location Date Provider Diagnosis [facility] [address] [place] [address] 08/24/2024 [facility] [address] [place] [address] 03/11/2024 [facility] [address] [place] [address] 03/17/2024 [facility] [address] [place] [address] 05/25/2024 [facility] [address] [place] [address] 08/10/2024 [facility] [address] [place] [address] 12/21/2024 [place] Acquired hypothyroid ism E03.9 ; Dizziness and giddiness R42 ; Rheumatoid arthritis, unspecified M06.9 ; Recurrent major depressive disorder, in full remission F33.42 ; Gastro-esophageal reflux disease without esophagitis K21.9 and Anxiety disorder, unspecified F41.9 [facility] [address] [place] [address] 01/20/2024 Silvia [place] Acquired hypothyroid ism E03.9 ; Rheumatoid arthritis, unspecified M06.9 ; Recurrent major depressive disorder, in full remission F33.42 ; Gastro-esophageal reflux disease without esophagitis K21.9 and Encounter for general adult medical examination without abnormal findings Z00.00 [facility] [address] [place] [address] 09/21/2024 Silvia [place] Acquired hypothyroid ism E03.9 ; Rheumatoid arthritis, unspecified M06.9 ; Recurrent major depressive disorder, in full remission F33.42 ; Gastro-esophageal reflux disease without esophagitis K21.9 and Anxiety disorder, unspecified F41.9 Assessments Encounter Date Diagnosis (ICD Code) Assessment Notes Treatment Notes Treatment Clinical Notes Section Notes 01/20/2024 Acquired hypothyroidism (ICD-10 - E03.9) Check thyroid labs today, since those have not been checked in the last year 01/20/2024 Rheumatoid arthritis, unspecified (ICD-10 - M06.9) Continue to follow up with wagon drill operator as directed 09/21/2024 Acquired hypothyroidism (ICD-10 - E03.9) Stable, continue current med 09/21/2024 Rheumatoid arthritis, unspecified (ICD-10 - M06.9) Stable, continue current meds and to follow up with rheumatology 12/21/2024 Acquired hypothyroidism (ICD-10 - E03.9) 12/21/2024 Dizziness and giddiness (ICD-10 - R42) 12/21/2024 Rheumatoid arthritis, unspecified (ICD-10 - M06.9) 09/21/2024 Recurrent major depressive disorder, in full remission (ICD-10 - F33.42) Stable on citalopram 01/20/2024 Recurrent major depressive disorder, in full remission (ICD-10 - F33.42) Stable, continue citalopram - refill printed 01/20/2024 Gastro-esophageal reflux disease without esophagitis (ICD-10 - K21.9) 09/21/2024 Gastro-esophageal reflux disease without esophagitis (ICD-10 - K21.9) Stable with current management 12/21/2024 Recurrent major depressive disorder, in full remission (ICD-10 - F33.42) 12/21/2024 Gastro-esophageal reflux disease without esophagitis (ICD-10 - K21.9) 09/21/2024 Anxiety disorder, unspecified (ICD-10 - F41.9) Refill of xanax to take as needed for anxiety 01/20/2024 Encounter for general adult medical examination without abnormal findings (ICD-10 - Z00.00) 12/21/2024 Anxiety disorder, unspecified (ICD-10 - F41.9) Plan Of Treatment Pending Test Test Name Order Date Cerumen Removal 06/10/2023 EKG w Interp & Report - performed 2022 MAMM SCREEN BILAT MIGUEL ANGEL 3D* 05/08/2022 BMP (BASIC MET PANEL) w/eGFR CKD-EPI Next Appt Details Provider Name:Silvia Garcia es, 03/23/2025 09:30:00 AM, [address] [facility], [place], [address], Insurance Providers Payer Name Payer Address Payer Phone Subscriber Number Group Number Insured Name Patient Relationship to Insured Coverage Start Date Coverage End Date [employer] MED[employer]ARE ADV PLAN [address] [address] [place] [address] [id number] Sara Verduzco Self - patient is the insured 3 [employer] [place] [employer]ICA[employer] [address] [address] [place] [address] [id number] Sara Verduzco Self - patient is the insured 3 3 Medical (General) History Medical History History ICD Code H/o Asthma Hypothyroid Depression/anxiety Hyperlipidemia Rheumatoid Arthritis Fibromyalgia Surgical History Surgery Date(Month/Year) Gastric Sleeve - Dr. Shane 12/31/22 colonoscopy 08/15/20 Oophorectomies (bilat)- Dr Ko 2014 Partial Hysterectomy 2009 Lt shoulder Tonsils L Plantar Fascitis - Dr Wahl Cholecystectomy- Dr Wick Bilateral carpal tunnel- DR Mendoza Csection 06/25/03 C section 10/26/98
--- OUTSIDE RECORDS SUMMARY | 2024-12-21 15:42 | XMS_ITS | Encounter Summary ---
Author Organization [email or web address] Address [facility] [place]-[id number] [address] [place] [address] Care Team Providers Care Hat And Cap Drying Room Attendant Name Role Phone Silvia Mane MD Primary Care Provider + [phone] Reason for Visit * Reason Comments Med Refill Encounter Details Date Type Department Care Team ([facility] st Contact Info) Description 01/20/2021 Refill [facility] [address] [phone] Tara Smith MD [address] [address] Fibromyalgia Social History Tobacco Use Types Packs/Day Years Used Date Smoking Tobacco: Every Day Cigarettes 0.5 4 Smokeless Tobacco: Never Comments:quitting smoking Alcohol Use Standard Drinks/Week Comments Yes 0 (1 standard drink = 0.6 oz pur e alcohol) social Childcare Answer Date Recorded Childcare Unknown 11/05/2018 Employment Answer Date Recorded Employment Unknown 11/05/2018 Purpose - Life Answer Date Recorded Purpose and direction in life Unknown Comments No Sex and Gender Information Value Date Recorded Sex Assigned at Not on file Legal Sex Female 11:24 AM EDT Gender Identity Not on file Sexual Orientation Not on file COVID-19 Exposure Response Date Recorded In the last month, have you been in contact with someone who was confirmed or suspected to have Coronavirus / COVID-19? No / Unsure 01/23/2021 7:40 AM EDT documented as of this encounter Plan of Treatment Upcoming Encounters Date Type Department Care Team (Late st Contact Info) Description 03/04/2025 11:30 AM EDT Office Visit [facility] [address] [place] [address] Tara Smith MD [address] [facility] [address] [place] [address] documented as of this encounter Visit Diagnoses Diagnosis Fibromyalgia Unspecified myalgia and myositis documented in this encounter Additional Health Concerns Infection Onset Date Last Indicated Resolved Time COVID-19 Rule-Out 01/23/2021 01/23/2021 01/23/2021 8:14 AM EDT Respiratory Rule-Out 07/08/2021 07/08/2021 022 6:54 PM EST COVID-19 Rule-Out 07/08/2021 07/08/2021 07/08/2021 7:09 PM EST COVID-19 Rule-Out 05/16/2022 05/16/2022 05/16/2022 9:08 AM EST COVID-19 Positive 05/16/2022 05/16/2022 06/06/2022 11:12 PM EST Assessment Noted Time A Body Mass Index follow-up plan has been documented for the patient 09/12/2020 9:03 AM EDT documented as of this encounter Care Teams Hat And Cap Drying Room Attendant Relationship Specialty Start Date End Date Silvia Mane MD [address] [place] [phone] PCP - General Family Medicine 08/11/24 documented as of this encounter
--- OUTSIDE RECORDS SUMMARY | 2024-12-21 15:42 | XMS_ITS | Encounter Summary ---
Author Organization [facility] Address [id number] [address] [place] [address] Care Team Providers Care Alining Inspector Name Role Phone Silvia Mane MD Primary Care Provider + [phone] Reason for Visit * Reason Comments Med Refill Encounter Details Date Type Department Care Team ([facility] st Contact Info) Description 03/03/2024 Refill [facility] [address] [phone] Tara Smith MD [address] [address] Fibromyalgia Social History Tobacco Use Types Packs/Day [...] got money to buy more. Never True 09/21/2022 Within the past 12 months th e food we bought just didn't last and we didn't have money to get more. Never True 09/21/2022 Purpose - Life Answer Date Recorded Purpose and direction in life Unknown Comments No Sex and Gender Information Value Date Recorded Sex Assigned at Not on file Legal Sex Female 11:24 AM EDT Gender Identity Not on file Sexual Orientation Not on file documented as of this encounter Plan of Treatment Upcoming Encounters Date Type Department Care Team (Late st Contact Info) Description 03/04/2025 11:30 AM EDT Office Visit [facility] [address] [place] [address] Tara Smith MD [address] [facility] [address] [place] [address] documented as of this encounter Visit Diagnoses Diagnosis Fibromyalgia Unspecified myalgia and myositis documented in this encounter Additional Health Concerns Assessment Noted Time A Body Mass Index follow-up plan has been documented for the patient 09/12/2020 9:03 AM EDT documented as of this encounter Care Teams Alining Inspector Relationship Specialty Start Date End Date Silvia Mane MD [address] [place] [phone] PCP - General Family Medicine 08/11/24 documented as of this encounter
--- OUTSIDE RECORDS SUMMARY | 2024-12-21 15:42 | XMS_ITS | Encounter Summary ---
Author Organization [facility] Address [facility] [id number] [address] [place] [address] Care Team Providers Care Oral And Maxillofacial Surgeon Name Role Phone Silvia Mane MD Primary Care Provider [phone] Reason for Visit * Reason Comments Med Refill Encounter Details Date Type Department Care Team ([facility] st Contact Info) Description 03/17/2023 Refill [facility] [address] [place] [phone] Tara Smith MD [address] [address] Fibromyalgia Social History Tobacco Use Types Packs/Day [...] Rheumatology [address] [place] [address] Tara Smith MD [address] [facility] [address] [place] [address] documented as of this encounter Visit Diagnoses Diagnosis Fibromyalgia Unspecified myalgia and myositis documented in this encounter Additional Health Concerns Assessment Noted Time A Body Mass Index follow-up plan has been documented for the patient 09/12/2020 9:03 AM EDT documented as of this encounter Care Teams Oral And Maxillofacial Surgeon Relationship Specialty Start Date End Date Silvia Mane MD [address] [place] [phone] PCP - General Family Medicine 08/11/24 documented as of this encounter
--- OUTSIDE RECORDS SUMMARY | 2024-12-21 15:42 | XMS_ITS | Encounter Summary ---
Author Organization [email or web address] Address [id number] [address] [place] [address] Care Team Providers Care Real Estate Loan Processor Name Role Phone Silvia Mane MD Primary Care Provider [phone] Encounter Details Date Type Department Care Team (Latest Contact Info) Description 12/12/2024 Travel Social History Tobacco Use Types Packs/Day Years [...] Upcoming Encounters Date Type Department Care Team ( Contact Info) Description 03/04/2025 11:30 AM EDT Office Visit [facility] [address] [place] [address] Tara Smith MD [address] [address] documented as of this encounter Visit Diagnoses Not on filedocumented in this encounter Additional Health Concerns Assessment Noted Time A Body Mass Index follow-up plan has been documented for the patient 09/12/2020 9:03 AM EDT documented as of this encounter Care Teams Real Estate Loan Processor Relationship Specialty Start Date End Date Silvia Mane MD [address] [place] [phone] PCP - General Family Medicine 08/11/24 documented as of this encounter
--- OUTSIDE RECORDS SUMMARY | 2024-12-21 15:42 | XMS_ITS | Encounter Summary ---
Author Organization [facility] Address [id number] [address] [place] [address] Care Team Providers Care Toy Assembly Supervisor Name Role Phone Silvia Mane MD Primary Care Provider + [phone] Encounter Details Date Type Department Care Team ([facility] st Contact Info) Description 12/29/2020 [facility]phone [facility] [address] [address] Apple James CMA Social History Tobacco Use Types Packs/Day Years [...] on file documented as of this encounter Miscellaneous Notes * Telephone Encounter - Apple James CMA - 12/29/2020 10:33 AM EDT Sara called stated she think she having another flare she been very tired and can't hardly move. She also was wondering if you will place the rx for amitriptyline you was going to up her dose for this medication. Please advise. Thanks (see previous note) documented in this encounter Plan of Treatment Upcoming Encounters Date Type Department Care Team (Late st Contact Info) Description 03/04/2025 11:30 AM EDT Office Visit [facility] [address] [place] [address] Tara Smith MD [address] [facility] [address] [place] [address] documented as of this encounter Visit Diagnoses Not on filedocumented in this encounter Additional Health Concerns Infection [...] documented as of this encounter Care Teams Toy Assembly Supervisor Relationship Specialty Start Date End Date Silvia Mane MD [address] [place] [phone] PCP - General Family Medicine 08/11/24 documented as of this encounter
--- OUTSIDE RECORDS SUMMARY | 2024-12-21 15:42 | XMS_ITS | Encounter Summary ---
Author Organization [facility] Address [facility] [id number] [address] [place] [address] Care Team Providers Care Box Car Washer Name Role Phone Silvia Mane MD Primary Care Provider + [phone] Reason for Visit * Reason Comments Med Refill Encounter Details Date Type Department Care Team ([facility] st Contact Info) Description 02/29/2024 Refill [facility] [address] [phone] Tara Smith MD [address] [address] Fibromyalgia Social History Tobacco Use Types Packs/Day [...] Rheumatology [address] [place] [address] Tara Smith MD [address] [facility] [address] [place] [address] documented as of this encounter Visit Diagnoses Diagnosis Fibromyalgia Unspecified myalgia and myositis documented in this encounter Additional Health Concerns Assessment Noted Time A Body Mass Index follow-up plan has been documented for the patient 09/12/2020 9:03 AM EDT documented as of this encounter Care Teams Box Car Washer Relationship Specialty Start Date End Date Silvia Mane MD [address] [place] [phone] PCP - General Family Medicine 08/11/24 documented as of this encounter
--- OUTSIDE RECORDS SUMMARY | 2024-12-21 15:42 | XMS_ITS | Encounter Summary ---
Author Organization [facility] [facility] Address [facility]-[id number] [address] [place] [address] Care Team Providers Care Medical Tech Name Role Phone Silvia Mane MD Primary Care Provider [phone] Encounter Details Date Type Department Care Team (Late st Contact Info) Description 01/24/2022 Telephone [facility] [address] [address] Apple James CMA Social History Tobacco Use [...] have Coronavirus / COVID-19? No / Unsure 01/23/2022 1:49 PM EDT documented as of this encounter Miscellaneous Notes * Telephone Encounter - Apple James CMA - 01/24/2022 10:35 AM EDT Received denial for metaxalone 800 mg tablets by [facility] in accordance with member's Drug coverage. Preferred medications include: Will need to choose from the bottom list for coverage. Tizanidine tablets Baclofen Cyclobenzaprine 5 and 10 mg And methocarbamol * Telephone Encounter - Tara Smith MD - 01/24/2022 10:35 AM EDT I did put order for methocarbamol * Telephone Encounter - Apple James CMA - 01/24/2022 10:35 AM EDT ..Spoke with Sara advised new medication was sent to pharmacy (methocarbamol). documented in this encounter Plan of Treatment Upcoming Encounters Date Type Department Care Team (Late st Contact Info) Description 03/04/2025 11:30 AM EDT Office Visit [facility] [address] [facility] [address] [place] [address] Tara Smith MD [address] [address] documented as of this encounter Visit Diagnoses Not on filedocumented in this encounter Additional Health Concerns Infection Onset Date Last Indicated Resolved Time COVID-19 Rule-Out 05/16/2022 05/16/2022 05/16/2022 9:08 AM EST COVID-19 Positive 05/16/2022 05/16/2022 06/06/2022 11:12 PM EST Assessment Noted Time A Body Mass Index follow-up plan has been documented for the patient 09/12/2020 9:03 AM EDT documented as of this encounter Care Teams Medical Tech Relationship Specialty Start Date End Date Silvia Mane MD [address] [place] [phone] PCP - General Family Medicine 08/11/24 documented as of this encounter
--- OUTSIDE RECORDS SUMMARY | 2024-12-21 15:42 | XMS_ITS | Clinical Summary ---
Author Organization [facility] Address [id number] [address] [place] [address] Care Team Providers Care Hoe Worker Name Role Phone Silvia Mane MD Primary Care Provider [phone] Allergies No known active allergies Medications levothyroxine (SYNTHROID, LEVOTHROID) 88 MCG tablet Take 1 tablet (88 mcg total) by mouth in the morning. Active [id number] -[id number]-K-hb#[id number] 18-400-80 mg-mcg-mcg tablet Take by mouth. Active citalopram (CeleXA) 40 mg tablet Take 1 tablet (40 mg total) by mouth in the morning. 8 Active budesonide-formote rol (SYMBICORT) 160-4.5 mcg/actuation inhaler Inhale 2 puffs in the morning and 2 puffs before bedtime. Active atorvastatin (LIPITOR) 10 mg tablet Take 1 tablet (10 mg total) by mouth in the morning. Active promethazine (PHENERGAN) 25 mg tablet Take 1 tablet (25 mg total) by mouth every 6 (six) hours as needed for nausea or vomiting. 15 tablet 2 Active fluticasone propionate (FLONASE) 50 mcg/actuation nasal spray Administer 1 spray into each nostril in the morning. 16 g 2 Active varenicline (CHANTIX MORENO) 0.5 mg (11)- 1 mg (42) tablet Chantix Starting Month Box 0.5 mg (11)-1 mg (42) tablets in dose pack Active cefDINIR (OMNICEF) 300 mg capsule Take 1 capsule (300 mg total) by mouth in the morning and 1 capsule (300 mg total) before bedtime. Active benzonatate (TESSALON PERLES) 100 mg capsule Take 1 capsule (100 mg total) by mouth every 8 (eight) hours. 21 capsule 2 Active ondansetron ODT (ZOFRAN ODT) 4 mg disintegrating tablet Dissolve 1 tablet (4 mg total) on tongue 3 (three) times a day as needed for nausea for up to 3 doses. 3 tablet 5 Active amitriptyline (ELAVIL) 75 mg tabletIndications: Fibromyalgia TAKE ONE TABLET BY MOUTH ONCE NIGHTLY AT 8 PM. 90 tablet 3 5 Active methocarbamoL (ROBAXIN) 750 mg tabletIndications: Fibromyalgia Take 1 tablet (750 mg total) by mouth once daily at bedtime. 90 tablet 3 5 Active nabumetone (RELAFEN) 500 mg tabletIndications: Fibromyalgia One tablet daily for pain as needed 90 tablet 3 5 Active ALPRAZolam (XANAX) 0.25 mg tablet 1 tablet Orally Twice a day prn anxiety for 30 days 5 Active omeprazole (PriLOSEC) 20 mg capsule Take 1 capsule (20 mg total) by mouth before breakfast. 1 CAPSULE 30 MINUTES BEFORE MORNING MEAL ORALLY ONCE A DAY Active meclizine (ANTIVERT) 25 mg tablet Take 1 tablet (25 mg total) by mouth 3 (three) times a day as needed for dizziness. 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 01/23/2022 Greater trochanteric bursitis of right hip 01/23 Fibromyalgia 09/12/2020 History of rheumatoid arthritis 09/12/2020 Chronic bilateral low back pain without sciatica 09/12/2020 Encounter for screening colonoscopy 08/15/2020 Left otitis externa 08/18/2018 Chronic mycotic otitis media of right ear 2018 Eczematoid otitis externa of both ears 8 SOB (shortness of breath) 04/09/2017 Cough 04/09/2017 Resolved Problems Problem Noted Date Diagnosed Date Resolved Date Chronic sinusitis 09/03/2017 09/09/2017 Mucoid otitis media of right ear 07/23/2017 09/09/2017 Other acute sinusitis 04/03/20172017 Encounters Date Type Department Care Team Description 12/12/2024 3:14 PM EDT - 12/12/2024 5:39 PM EDT Emergency [facility] - Emergency [address] [place] [phone] Deric Herman DO Vertigo (Primary Dx); Hypokalemia Discharge Disposition: Home 12/12/2024 Travel from Last 3 Months Family History Medical History Relation Name Comments No Known Problems Brother Alcohol abuse Father Arthritis Father Early Father Heart disease Father Hypertension Father Arthritis Mother Heart disease Mother Hypertension Mother Kidney disease Mother Vision loss Mother Alcohol abuse Sister 1 No Known Problems Son 1 No Known Problems Son 2 Breast cancer Neg Hx Relation Name Status Comments Brother Alive Father Maternal Grandfather Maternal Grandmother Mother Alive Paternal Grandfather Paternal Grandmother Sister 1 Alive Sister 2 Alive Sister 3 Alive Son 1 Alive Son 2 Alive Social History Tobacco Use Types Packs/Day Years [...] on file Sexual Orientation Not on file Last Filed Vital Signs Vital Sign Reading [...] Mass Index 29.76 12/12/2024 3:15 PM EDT Plan of Treatment Upcoming Encounters Date Type Department Care Team (Late st Contact Info) Description 03/04/2025 11:30 AM EDT Office Visit [facility] [address] [facility] [address] [place] [address] Tara Smith MD [address] [facility] [address] [place] [address] Health Maintenance Due Date Last Done Comments Depression Screening 1982 Adult BMI Follow Up Plan 1988 Zoster (Shingles) Vaccine (1 of 2) 2020 Influenza Vaccine 01/25/2025 03/23/2024, , 03/21/2022, Additional history exists Adult BMI Screening 12/12/2025 12/12/2024 Tobacco Screening 12/12/2025 12/12/2024 DTaP,Tdap and Td Vaccines (2 - Td or Tdap) 03/01/2027 03/01/2017 Colonoscopy 09/05/2030 09/05/2020, 08/25, 09/05/2020 COVID-19 Vaccine Completed 03/23/2024, 06/2023, 09/03/2020, Additional history exists Medical Devices Not on file Procedures Procedure Name Priority Date/Time Associated Diagnosis Comments POCT NURSING URINE MACROSCOPIC UA Routine 12/12/2024 4:50 PM EDT TROP I, HIGH SENSITIVITY 1 HOUR STAT 12/12/2024 4:49 PM EDT ER EXTRA URINE MARBLE STAT 12/12/2024 4:37 PM EDT ER EXTRA URINE CULTURE STAT 4:37 PM EDT ER EXTRA URINE STAT 12/12/2024 4:37 PM EDT EXTRA TUBES BLUE TOP Routine 12/12/2024 3:44 PM EDT EXTRA TUBES Routine 12/12/2024 3:44 PM EDT MAGNESIUM STAT 12/12/2024 3:44 PM EDT TROPONIN I, HIGH SENSITIVITY 0 HOUR STAT 12/12/2024 3:44 PM EDT TROPONIN I, HIGH SENSITIVITY 0 HOUR STAT 12/12/2024 3:44 PM EDT COMPREHENSIVE METABOLIC PANEL STAT 12/12/2024 3:44 PM EDT CBC WITH AUTO DIFFERENTIAL STAT 12/12/2024 3:44 PM EDT ED PHYSICIAN NIHSS AND THROMBOLYTIC DECISION Routine 12/12/2024 3:29 PM EDT from Last 3 Months Results * (ABNORMAL) POCT Nursing Urine Macroscopic UA (12/12/2024 4:50 PM EDT) POC Urine Specific [place] 1.020 1.010, 1.015, 1.020, 1.025 12/12/2024 4:42 PM EDT [facility] POC Urine Leukocyte Esterase Negative Negative 12/12/2024 4:42 PM EDT [facility] POC Urine Nitrite Negative Negative 12/12/2024 4:42 PM EDT [facility] POC Urine pH 8.5 5.0, 6.0, 6.5, 7.0, 7.5, 8.0, 8.5, 5.5 12/12/2024 4:42 PM EDT [facility] POC Urine Protein Negative Negative 12/12/2024 4:42 PM EDT [facility] POC Urine Glucose Negative Negative 12/12/2024 4:42 PM EDT [facility] POC Urine Ketones 15 mg/dL(A) Negative 12/12/2024 4:42 PM EDT [facility] POC Urine Urobilinogen 0.2 E.U./dL 12/12/2024 4:42 PM EDT [facility] POC Urine Bilirubin Negative Negative 12/12/2024 4:42 PM EDT [facility] POC Urine Blood/HGB Negative Negative 12/12/2024 4:42 PM EDT [facility] Urine 12/12/2024 4:50 PM EDT 12/12/2024 4:42 PM EDT us Deric Herman DO POINT OF CARE TEST ORDERABLE S Final Result Performing Organization Address City/[facility]/ZIP Co de Phone Number [address] [place] [address], [place] * Troponin I, High Sensitivity 1 Hour (12/12/2024 4:49 PM EDT) [facility] TROPONIN I, HIGH SENSITIVITY 3 <16 ng/L 12/12/2024 5:34 PM EDT [facility] Blood Venous blood / Unknown Venipuncture / Unknown 12/12/2024 4:49 PM EDT 12/12/2024 4:57 PM EDT us Leeanna Ardon COIL MACHINE SUPERVISOR-[employer]ORT HOST LAB BLOOD ORDERABLES Final Result Performing Organization Address City/[facility]/ZIP Co de Phone Number [address] [place] [address], [place] * Extra Urine [place] (12/12/2024 4:37 PM EDT) Extra Tube Auto Resulted 12/12/2024 6:01 PM EDT [facility] Urine Urine specimen collection, clean catch / Unknown 12/12/2024 4:37 PM EDT 12/12/2024 5:15 PM EDT us Leeanna Ardon COIL MACHINE SUPERVISOR-RESORT HOST URINE ORDERABLES Veronica l Result Performing Organization Address City/[facility]/ZIP Co de Phone Number [address] [place] [address], [place] * Extra Urine Culture (12/12/2024 4:37 PM EDT) Extra Tube Auto Resulted 12/12/2024 6:01 PM EDT [facility] Urine Urine specimen collection, clean catch / Unknown 12/12/2024 4:37 PM EDT 12/12/2024 5:15 PM EDT us Durán Jennifer Duglas COIL MACHINE SUPERVISOR-RESORT HOST URINE ORDERABLES Veronica l Result Performing Organization Address [facility] Co de Phone Number [address] [place] [address], [place] * Extra Urine (12/12/2024 4:37 PM EDT) Extra Tube Auto Resulted 12/12/2024 6:01 PM EDT [facility] Urine Urine specimen collection, clean catch / Unknown 12/12/2024 4:37 PM EDT 12/12/2024 5:15 PM EDT us Leeanna Ardon COIL MACHINE SUPERVISOR-[employer]ORT HOST URINE ORDERABLES Veronica l Result Performing Organization Address City/[facility] Co de Phone Number [address] [place] [address], [place] * Troponin I, High Sensitivity 0 Hour (12/12/2024 3:44 PM EDT) TROPONIN I, HIGH SENSITIVITY 2 <16 ng/L 12/12/2024 4:14 PM EDT [facility] Blood Venous blood / Unknown Venipuncture / Unknown 12/12/2024 3:44 PM EDT 12/12/2024 3:46 PM EDT us Leeanna Ardon COIL MACHINE SUPERVISOR-[employer] LAB BLOOD ORDERABLES Final Result Performing Organization Address City/[facility]/ZIP Co de Phone Number [address] [place] [address], [place] * Light Blue Top (12/12/2024 3:44 PM EDT) Extra Tube Auto Resulted 12/12/2024 5:01 PM EDT [facility] Blood Venous blood / Unknown Venipuncture / Unknown 12/12/2024 3:44 PM EDT 12/12/2024 3:46 PM EDT us Deric Herman DO LAB BLOOD ORDERABLES Final R esult Performing Organization Address [facility] Co de Phone Number [address] [place] [address], [place] * CBC auto differential (12/12/2024 3:44 PM EDT) WBC 6.7 4 - 11 x10E9/L 12/12/2024 3:50 PM EDT [facility] RBC Count 4.37 3.8 - 5.2 X10E12/L 12/12/2024 3:50 PM EDT [facility] Hemoglobin 12.8 11.7 - 15.5 g/dL 12/12/2024 3:50 PM EDT [facility] Hematocrit 36.8 35 - 47 % 12/12/2024 3:50 PM EDT [facility] MCV 84 80 - 100 fL 12/12/2024 3:50 PM EDT [facility] MCH 29.3 27 - 34 pg 12/12/2024 3:50 PM EDT [facility] MCHC 34.9 32 - 36 g/dL 12/12/2024 3:50 PM EDT [facility] RDW 12.3 11.5 - 15 % 12/12/2024 3:50 PM EDT [facility] Platelet Count 234 150 - 450 X10E9/L 12/12/2024 3:50 PM EDT [facility] MPV 8.9 7 - 12 fL 12/12/2024 3:50 PM EDT [facility] Neutrophils % 58.5 % 12/12/2024 3:50 PM EDT [facility] Lymphocytes % 33.0 % 12/12/2024 3:50 PM EDT [facility] Monocytes % 6.3 % 12/12/2024 3:50 PM EDT [facility] Eosinophils % 1.0 % 12/12/2024 3:50 PM EDT [facility] Basophils % 1.2 % 12/12/2024 3:50 PM EDT [facility] Neutrophils Absolute (A) 3.9 1.5 - 6.6 10*3/uL 12/12/2024 3:50 PM EDT [facility] Lymphocytes Absolute 2.2 1.0 - 3.5 10*3/uL 12/12/2024 3:50 PM EDT [facility] Monocytes Absolute 0.4 0.0 - 0.9 10*3/uL 12/12/2024 3:50 PM EDT [facility] Eosinophils Absolute 0.1 0.0 - 0.4 10*3/uL 12/12/2024 3:50 PM EDT [facility] Basophils Absolute 0.1 0.0 - 0.2 10*3/uL 12/12/2024 3:50 PM EDT [facility] Differential Type AUTOMATED DIFFERENTIAL 12/12/2024 3:50 PM EDT [facility] Blood Venous blood / Unknown Venipuncture / Unknown 12/12/2024 3:44 PM EDT 12/12/2024 3:46 PM EDT Leeanna Ardon COIL MACHINE SUPERVISOR-[employer] LAB BLOOD ORDERABLES Final Result Performing Organization Address City/[facility]/ZIP Co de Phone Number [address] [place] [address], [place] * Magnesium (12/12/2024 3:44 PM EDT) MAGNESIUM 1.9 1.8 - 2.6 mg/dL 12/12/2024 4:05 PM EDT [facility] Blood Venous blood / Unknown Venipuncture / Unknown 12/12/2024 3:44 PM EDT 12/12/2024 3:46 PM EDT Leeanna Ardon APRN-[facility] [employer] LAB BLOOD ORDERABLES Final Result Performing Organization Address [facility] Co de Phone Number [address] [place] [address], [place] * (ABNORMAL) Comprehensive metabolic panel (12/12/2024 3:44 PM EDT) SODIUM 138 134 - 146 mmol/L 12/12/2024 4:05 PM EDT [facility] POTASSIUM 3.2(L) 3.5 - 5.0 mmol/L 12/12/2024 4:05 PM EDT [facility] CHLORIDE 105 98 - 109 mmol/L 12/12/2024 4:05 PM EDT [facility] CARBON DIOXIDE 20(L) 22 - 32 mmol/L 12/12/2024 4:05 PM EDT [facility] ANION GAP 13 5 - 15 mmol/L 12/12/2024 4:05 PM EDT [facility] BLOOD UREA NITROGEN 20 5 - 23 mg/dL 12/12/2024 4:05 PM EDT [facility] CREATININE 0.70 0.40 - 1.00 mg/dL 12/12/2024 4:05 PM EDT [facility] Comment:METHOD TRACEABLE TO IDFL STANDARD GLUCOSE 119(H) 65 - 99 mg/dL 12/12/2024 4:05 PM EDT [facility] CALCIUM 8.9 8.5 - 10.5 mg/dL 12/12/2024 4:05 PM EDT [facility] TOTAL PROTEIN 6.5 6.0 - 8.0 g/dL 12/12/2024 4:05 PM EDT [facility] ALBUMIN 3.9 3.2 - 5.3 g/dL 12/12/2024 4:05 PM EDT [facility] ALKALINE PHOSPHATASE 55 39 - 130 U/L 12/12/2024 4:05 PM EDT [facility] AST 18 <=41 U/L 12/12/2024 4:05 PM EDT [facility] ALT 16 <=31 U/L 12/12/2024 4:05 PM EDT [facility] BILIRUBIN,TOTAL 0.7 0.3 - 1.2 mg/dL 12/12/2024 4:05 PM EDT [facility] EGFR Non-Race Dependent >90 >=60 ml/min/1.7 3sq.m 12/12/2024 4:05 PM EDT [facility] Comment: eGFR not reported due to non-numeric value for Creatinine. Reported eGFR is based on the CKD-EPI 2020 equation that does not use a race coefficient. Blood Venous blood / Unknown Venipuncture / Unknown 12/12/2024 3:44 PM EDT 12/12/2024 3:46 PM EDT us Leeanna Ardon COIL MACHINE SUPERVISOR-[employer] LAB BLOOD ORDERABLES Final Result [facility] [address] [place] [address], from Last 3 Months Insurance [employer] Care Teams Hoe Worker Relationship Specialty Start Date End Date Silvia Mane MD [address] [place] [phone] PCP - General Family Medicine 08/11/24
--- OUTSIDE RECORDS SUMMARY | 2024-12-21 15:42 | XMS_ITS | Encounter Summary ---
Author Organization [facility] Address [id number] [address] [place] [address] Care Team Providers Care Epic Trainer Name Role Phone Silvia Mane MD Primary Care Provider [phone] Encounter Details Date Type Department Care Team ([facility] st Contact Info) Description 12/19/2020 [facility] [address] [phone] Apple James CMA Social History Tobacco Use [...] Telephone Encounter - Apple James CMA - 12/19/2020 9:41 AM EDT Sara called in she stated she is not feeling well she hurt all over her body.She can't sleep at night and the amitriptyline is not working at all for her. This all started for her last weekend. She will like to come in for an appointment alley. Her hip pain about 8-10 right now. Please advise. Thanks * Telephone Encounter - Tara Smith MD - 12/19/2020 9:41 AM EDT Patient has appointment with us after 1 month, meanwhile we can increase the amitriptyline to 50 mgQ 8:00 p.m. * Telephone Encounter - Apple James CMA - 12/19/2020 9:41 AM EDT Pt notified. documented in this encounter Plan of Treatment Upcoming Encounters Date Type Department Care Team ([facility] st Contact Info) Description 03/04/2025 11:30 AM EDT Office Visit [facility] [address] [facility] [address] [place] [address] Tara Smith MD [address] [address] documented as of this encounter Visit Diagnoses [...] documented as of this encounter Care Teams Epic Trainer Relationship Specialty Start Date End Date Silvia Mane MD [address] [place] [phone] PCP - General Family Medicine 08/11/24 documented as of this encounter
--- OUTSIDE RECORDS SUMMARY | 2024-12-21 15:42 | XMS_ITS | Encounter Summary ---
Author Organization [facility] Address [id number] [address] [place] [address] Care Team Providers Care Traffic Representative Name Role Phone Silvia Mane MD Primary Care Provider [phone] Reason for Visit * Reason Comments Med Refill Encounter Details Date Type Department Care Team ([facility] st Contact Info) Description 04/13/2023 Refill [facility] [address] [place] [phone] Tara Smith MD [address] [address] Fibromyalgia Social History Tobacco Use Types Packs/Day [...] Rheumatology [address] [place] [address] Tara Smith MD [address] [facility] [address] [place] [address] documented as of this encounter Visit Diagnoses Diagnosis Fibromyalgia Unspecified myalgia and myositis documented in this encounter Additional Health Concerns Assessment Noted Time A Body Mass Index follow-up plan has been documented for the patient 09/12/2020 9:03 AM EDT documented as of this encounter Care Teams Traffic Representative Relationship Specialty Start Date End Date Silvia Mane MD [address] [place] [phone] PCP - General Family Medicine 08/11/24 documented as of this encounter
--- OUTSIDE RECORDS SUMMARY | 2024-12-21 15:42 | XMS_ITS | Clinical Summary ---
Author Organization [facility] Healthcare Address [address] [place] [address] Care Team Providers Care Gauge And Weigh Machine Adjuster Name Role Phone Silvia Mane MD Unavailable Allergies No known active allergies Medications acetaminophen (Tylenol) 325 MG tablet every 4 (four) hours Active ALPRAZolam (Xanax) 0.25 MG tablet 03/26/2023 Active citalopram (CeleXA) 40 MG tablet Active levothyroxine (Synthroid, Levoxyl) 88 MCG tablet Active methocarbamol (Robaxin) 750 MG tablet 08/13/2023 Active methylPREDNISolo ne (Medrol Dospak) 4 MG tablets 08/13/2023 Active Multiple Vitamin (Daily Vitamin) tablet 1 (one) time each day at the same time Active omeprazole (PriLOSEC) [address] capsule 08/10/2023 Active Active Problems No known active problems Family History Medical History Relation Name Comments Alcohol abuse Father HTN Father Hyperlipidemia Father Hypertension Father Atrial fibrillation Mother Diabetes Mother HTN Mother Heart failure Mother Hyperlipidemia Mother Hypertension Mother Alcohol abuse Sister Relation Name Status Comments Father Maternal Grandfather Maternal Grandmother Mother Alive Paternal Grandfather Paternal Grandmother Sister Social History Tobacco Use Types Packs/Day Years Used Date Smoking Tobacco: Former Cigarettes Smokeless Tobacco: Never Tobacco Cessation:Counseling Given: Not Answered Alcohol Use Standard Drinks/Week Comments Yes 0 (1 standard drink = 0.6 oz pure alcohol) 1-2 drinks, monthly or less. caffeine intake: more than 4 cups per day. Comments Unknown Sex and Gender Information Value Date Recorded Sex Assigned at Not on file Legal Sex Female 6:37 PM EDT Gender Identity Female 08/08/2022 6:37 PM EDT Sexual Orientation Not on file Last Filed Vital Signs Vital Sign Reading Time Taken Comments Blood Pressure 116/66 10/28/2020 12:00 PM EDT Pulse - - Temperature - - Respiratory Rate - - Oxygen Saturation - - Inhaled Oxygen Concentration - - Weight 73.9 kg (163 lb) 08/19/2023 9:05 AM EDT Height 170.2 cm (5' 7 ) 08/19/2023 9:05 AM EDT Body Mass Index 25.53 08/19/2023 9:05 AM EDT Plan of Treatment Health Maintenance Due Date Last Done Comments CT Colonography 1970 FIT-DNA 1970 FIT 1970 FOBT 1970 Sigmoidoscopy 1970 Pap Smear 07/30/1991 Cervical Cancer Screening 2000 HPV/Cotest 2000 Mammogram 08/01/2021 08/01/2020, 04/0 08/2017, 08/28/2017, Additional history exists Influenza Vaccine (#1) 2025 , 03/21/2022, 03/27/2021, Additional history exists Colonoscopy 09/05/2030 09/05/2020, 09/05/2020 Colorectal Cancer Screening 09/05/2030 Procedures Procedure Name Priority Date/Time Associated Diagnosis Comments COLONOSCOPY Routine 09/05/2020 12:00 PM EDT BI MAMMOGRAM SCREENING TOMOSYNTHESIS BILATERAL Routine 08/01/2020 from Last 3 Months or Most Recently Relevant to Health Maintenance Results * Colonoscopy (09/05/2020 12:00 PM EDT) Anatomical Region Laterality Modality Endoscopy 09/05/2020 12:0 0 PM EDT Narrative 09/05/2020 12:00 PM EDT PERFORMED AT [facility] LOCATION:[id number] Procedure Note CONVERSION, GENERIC - 10/10/2022 PERFORMED AT [facility] LOCATION:[id number] Aliyah Wade MD ENDOSCOPY PROCEDURE ORDERABLE S Final Result * Bilateral screening mammogram with tomosynthesis (08/01/2020) Anatomical Region Laterality Modality Breast Bilateral Mammography Narrative 08/01/2020 12:00 AM EST PERFORMED AT [facility] LOCATION:[place] [address] Patient: LORI Gonsalez. Exam Date: 08/01/2020 : 1970 Gender:F Ordering : DR TYRONE JACOME . Admission #: [id number] Family : DR ALIYAH WADE M.D. Order #: [id number] CLICK HERE TO VIEW EXAM RADIOLOGY REPORT PROCEDURE: MAMMOGRAM BILATERAL SCREENING DIGITAL WITH COMPUTER AIDED DETECTION COMPARISON: MG MAMM SCREEN JAYJAY W CAD 01/26/2016. MG MAMM SCREEN JAYJAY W CAD 08/28/2017. INDICATIONS: Screening mammography Calculator Name NCI Breast Cancer Risk Assessment Tool 5 Year Breast Cancer Risk 1.10% Lifetime Breast Cancer Risk 9.90% Personal Breast Cancer No Personal Ovarian Cancer No Treatments None Family Cancers None LOCATION: [facility] BREAST COMPOSITION: Scattered areas fibroglandular density. FINDINGS: DIAGNOSTIC CATEGORY 2--BENIGN FINDING NO CHANGE FROM COMPARISON ASSESSMENT. Scattered benign-appearing calcifications are present. Scattered benign-appearing lymph nodes are present. Scattered benign-appearing nodules are present. RIGHT BREAST: No significant suspicious finding. Round mole marker. LEFT BREAST: No significant suspicious finding. RECOMMENDATIONS: ROUTINE MAMMOGRAM AND CLINICAL EVALUATION IN 12 MONTHS. PLEASE NOTE: A NORMAL MAMMOGRAM DOES NOT EXCLUDE THE POSSIBILITY OF BREAST CANCER. A CLINICALLY SUSPICIOUS PALPABLE LUMP SHOULD BE BIOPSIED. Dictated by: Gilberto Hutchison MD on 08/01/2020 at 11:14 Approved by: Gilberto Hutchison MD on 08/01/2020 at 11:26 Procedure Note CONVERSION, GENERIC - 11/30/2022 PERFORMED AT [facility] LOCATION:[place] [address] Patient: LORI Gonsalez. Exam Date: 08/01/2020 : 1970 Gender:F Ordering : DR TYRONE JACOME . Admission #: [id number] Family : DR ALIYAH WADE M.D. Order #: [id number] CLICK HERE TO VIEW EXAM RADIOLOGY REPORT PROCEDURE: MAMMOGRAM BILATERAL SCREENING DIGITAL WITH COMPUTER AIDED DETECTION COMPARISON: MG MAMM SCREEN JAYJAY W CAD 01/26/2016. MG MAMM SCREEN JAYJAY W CAD 08/28/2017. INDICATIONS: Screening mammography Calculator Name NCI Breast Cancer Risk Assessment Tool 5 Year Breast Cancer Risk 1.10% Lifetime Breast Cancer Risk 9.90% Personal Breast Cancer No Personal Ovarian Cancer No Treatments None Family Cancers None LOCATION: [facility] BREAST COMPOSITION: Scattered areas fibroglandular density. FINDINGS: DIAGNOSTIC CATEGORY 2--BENIGN FINDING NO CHANGE FROM COMPARISONASSESSMENT. Scattered benign-appearing calcifications are present. Scattered benign-appearing lymph nodes are present. Scattered benign-appearingnodules are present. RIGHT BREAST: No significant suspicious finding. Round mole marker. LEFT BREAST: No significant suspicious finding. RECOMMENDATIONS: ROUTINE MAMMOGRAM AND CLINICAL EVALUATION IN 12 MONTHS. PLEASE NOTE: A NORMAL MAMMOGRAM DOES NOT EXCLUDE THE POSSIBILITY OFBREAST CANCER. A CLINICALLY SUSPICIOUS PALPABLE LUMP SHOULD BE BIOPSIED. Dictated by: Gilberto Hutchison MD on 08/01/2020 at 11:14 Approved by: Gilberto Hutchison MD on 08/01/2020 at 11:26 Aliyah Wade MD IMG BI PROCEDURES Final Resul t from Last 3 Months or Most Recently Relevant to Health Maintenance Insurance [facility] MEDICARE ADVANTAGE Care Teams Gauge And Weigh Machine Adjuster Relationship Specialty Start Date End Date Silvia Mane MD [address] [place] [phone] Referring Physician Family Medicine 08/19/23
--- OUTSIDE RECORDS SUMMARY | 2024-12-21 15:42 | XMS_ITS | Encounter Summary ---
Author Organization [facility] tem Address [id number] [address] [place] [address] Care Team Providers Care Box Car Loader Name Role Phone Silvia Mane MD Primary Care Provider [phone] Encounter Details Date Type Department Care Team ([facility] Contact Info) Description 01/31/2022 Telephone [facility] [address] [phone] Apple James, SHEET METAL SHOP HELPER Social History Tobacco Use Types Packs/Day Years [...] PM EDT documented as of this encounter Plan of Treatment Upcoming Encounters Date Type Department Care Team ([facility] Contact Info) Description 03/04/2025 11:30 AM EDT Office Visit [facility] [address] [place] [phone] Tara Smith MD [address] [address] documented as of this encounter Visit Diagnoses [...] of this encounter Care Teams Box Car Loader Relationship Specialty Start Date End Date Silvia Mane MD [address] [place] [phone] PCP - General Family Medicine 08/11/24 documented as of this encounter
--- OUTSIDE RECORDS SUMMARY | 2024-12-21 15:42 | XMS_ITS | Encounter Summary ---
Author Organization [facility] tem Address [id number] [address] [place] [address] Care Team Providers Care Internet Sales Representative Name Role Phone Silvia Mane MD Primary Care Provider + [phone] Reason for Visit * Reason Comments Med Refill Encounter Details Date Type Department Care Team ([facility] st Contact Info) Description 01/18/2021 Refill [facility] [address] [phone] Tara Smith MD [address] [address] Fibromyalgia Social History Tobacco Use Types Packs/Day [...] have Coronavirus / COVID-19? No / Unsure 01/05/2021 11:50 AM EDT documented as of this encounter Plan of Treatment Upcoming Encounters Date Type Department Care Team (Late st Contact Info) Description 03/04/2025 11:30 AM EDT Office Visit [facility] [address] [place] [address] Tara Smith MD [address] [facility] [address] [place] [address] documented as of this encounter Visit Diagnoses [...] documented as of this encounter Care Teams Internet Sales Representative Relationship Specialty Start Date End Date Silvia Mane MD [address] [place] [phone] PCP - General Family Medicine 08/11/24 documented as of this encounter
--- OUTSIDE RECORDS SUMMARY | 2024-12-21 15:42 | XMS_ITS | Clinical Summary ---
Author Organization [facility] Address [address] [place] [id number] Care Team Providers Care Orchestra Teacher Name Role Phone Mary Gagnon MD Primary Care Provider [phone] Medications Albuterol Sulfate 1.25 mg/3 mL nebulizer solution 9 Active levothyroxine (SYNTHROID) 88 mcg tablet once daily. Active citalopram (CELEXA) 40 mg tablet once daily. 9 Active SYMBICORT 160-4.5 mcg/actuation inhaler as needed. 9 Active atorvastatin (LIPITOR) 10 mg tablet Take by mouth once daily. 9 Active albuterol HFA (PROVENTIL HFA, VENTOLIN HFA) 90 mcg/actuation inhaler albuterol sulfate HFA 90 mcg/actuation aerosol inhaler Active predniSONE (DELTASONE) 5 mg tablet Take 15 mg a day x 2 weeks, 10 mg a day for 2 weeks, then stay on 5 mg a day 90 tablet 1 0 Active methotrexate 2.5 mg tablet TAKE SIX TABLET BY MOUTH ONCE WEEKLY 24 tablet 1 0 Active folic acid 1 mg tablet TAKE ONE TABLET BY MOUTH DAILY 24 tablet 0 Active Immunizations Immunization Administration Dates Next Due tetanus diphtheria pertussis (Tdap) vaccine, age 7+ yr (ADACEL, BOOSTRIX) 03/01/2017 Social History Tobacco Use Types Packs/Day Years Used Date Smoking Tobacco: Light Smoker Smokeless Tobacco: Never Alcohol Use Standard Drinks/Week Comments Not Currently 0 (1 standard drink = 0.6 oz pur e alcohol) Area Deprivation Index Answer Date Matt rded National Score (1-100), lower number is lower ri sk Not on file 05/05/2020 State Score (1-10), lower number is lower risk N ot on file 05/05/2020 Data from: https://www.neighborhoodatlas.medicine.[facility].edu/. Last address used for calculation Not on file 05/05/2020 Comments Unknown Sex and Gender Information Value Date Recorded Sex Assigned at Not on file Legal Sex Female 11:50 AM EDT Gender Identity Not on file Sexual Orientation Not on file Last Filed Vital Signs Vital Sign Reading Time Taken Comments Blood Pressure 93/44 06/26/2019 11:12 AM EST Pulse 76 06/26/2019 11:12 AM EST Temperature 36.4 C (97.6 F) 06/26/2019 11:12 AM EST Respiratory Rate - - Oxygen Saturation - - Inhaled Oxygen Concentration - - Weight 110.7 kg (244 lb) 06/26/2019 11:12 AM EST Height 171.2 cm (5' 7.4 ) 03/03/2019 9:59 AM EDT Body Mass Index 37.76 03/03/2019 9:59 AM EDT Plan of Treatment Health Maintenance Due Date Last Done Comments Anxiety Screening 1988 Depression Screening 1988 HIV Screening 1988 Hepatitis B Vaccine (1 of 3 - 19+ 3-dose series) 1989 Cervical Cancer Screening 07/30/[address] Colonography 07/30/2015 Cologuard (FIT-DNA) 07/30/2015 Colonoscopy 07/30/2015 Colorectal Cancer Screening 07/30/2015 Fecal Occult Blood 07/30/2015 Sigmoidoscopy 07/30/2015 Pneumococcal Vaccine: 50+ (1 of 1 - PCV) 2020 Shingrix Vaccine (1 of 2) 2020 Diabetes Screening 09/16/2022 09/17/2019, 0 08/15/2019, 06/01/2019, Additional history exists Lipid Screening 01/17/2024 01/16/2019 Covid-19 Vaccine (1 - 2023-2 5 season) 2024 Influenza Vaccine (#1) 2025 DTaP,Tdap,Td Vaccine (2 - Td or Tdap) 03/01/2027 03/01/2017 Hepatitis C Screening Completed 03/03/2019, 019 Procedures Procedure Name Priority Date/Time Associated Diagnosis Comments *HEP C AB Routine 03/03/2019 11:40 AM EDT Seropositive rheumatoid arthritis (HCC) from Last 3 Months or Most Recently Relevant to Health Maintenance Results * (ABNORMAL) HEP REMOTE PANEL BL (03/03/2019 11:40 AM EDT) Hep B Core Ab, Total Negative Negative 03/03/2019 6:09 PM EDT [facility] Hep C Antibody IA Negative Negative 03/03/2019 6:10 PM EDT [facility] HBsAg Negative Negative 03/03/2019 6:10 PM EDT [facility] Hep B Surface Ab, Qual Positive(A) Negative 03/03/2019 6:10 PM EDT [facility] Comment: These results are consistent with previous exposure and/or immunity to the hepatitis B virus antigen. Blood specimen (specimen) BLOOD SPECIMEN / Unknown 03/03/2019 11:40 AM EDT 03/03/2019 11:43 AM EDT us Carlos Eldridge MD LABORATORY Final Result [facility] [address] [place] [address] [facility] [address] [place] [address] from Last 3 Months or Most Recently Relevant to Health Maintenance Insurance [employer] [place] Care Teams Orchestra Teacher Relationship Specialty Start Date End Date Mary Gagnon MD [address] [place] [address] PCP - General Family Medicine 02/11/19
--- OUTSIDE RECORDS SUMMARY | 2024-12-21 15:42 | XMS_ITS | Encounter Summary ---
Author Organization [facility] Address [id number] [address] [place] [address] Care Team Providers Care Land Department Head Name Role Phone Silvia Mane MD Primary Care Provider + [phone] Reason for Visit * Reason Comments Med Refill Encounter Details Date Type Department Care Team ([facility] st Contact Info) Description 07/15/2021 Refill [facility] [address] [phone] Tara Smith MD [address] [address] Fibromyalgia Social History Tobacco Use Types Packs/Day [...] or suspected to have Coronavirus / COVID-19? Yes 07/08/2021 5:40 PM EST documented as of this encounter Plan of Treatment Upcoming Encounters Date Type Department Care Team (Late st Contact Info) Description 03/04/2025 11:30 AM EDT Office Visit [facility] [address] [place] [address] Tara Smith MD [address] [facility] [address] [place] [address] documented as of this encounter Visit Diagnoses [...] documented as of this encounter Care Teams Land Department Head Relationship Specialty Start Date End Date Silvia Mane MD [address] [place] [phone] PCP - General Family Medicine 08/11/24 documented as of this encounter
[2024-12-21 16:29] LABS: Anion Gap 12.0; Blood Urea Nitrogen 15.0 mg/dL (7.0-18.0); Calcium 8.8 mg/dL (8.5-10.1); Carbon Dioxide 28.8 mmol/L (21.0-32.0); Chloride 105 mmol/L (98-107); Estimated GFR (African America >60 (>=60 mL/min/1.73m^2); Estimated GFR (Non-African Ame >60 (>=60 mL/min/1.73m^2); Glucose 92 mg/dL (74-106); Potassium 3.8 mmol/L (3.5-5.1); Sodium 142 mmol/L (136-145)
--- OUTSIDE RECORDS SUMMARY | 2024-12-21 18:17 | XMS_ITS | CCD ---
Author Organization [facility] Care Team Providers Care Loss Prevention Specialist Name Role Phone DR LANI PEACOCK Admitting Unavailable HAY, DR GARIBAY Attending Unavailable REQUEST, DR SILVERIO LISTED Primary Care Unavaila ble AYUSH, DR GARIBAY Consulting Unavailable HAY, DR GARIBAY Consulting Unavailable HAY, DR GARIBAY Admitting Unavailable HAY, DR GARIBAY Attending Unavailable MANE, DR ASHLEY Kaiser Primary Care Unavailable LAURI PHILIPPE Attending Unavailable TARA SMITH Attending Unavailable ASHLEY MANE Referring Unavailable ASHLEY MANE A Primary Care Unavailable TARA SMITH Attending Unavailable BHUPENDRA, ASHLEY A Referring Unavailable BHUPENDRA ASHLEY A Primary Care Unavailable Ashley Mane MD Primary Care Provider [phone] Ashley Mane MD Primary Care Provider Ashley Mane MD Primary Care Provider TARA SMITH Attending Unavailable BHUPENDRA, ASHLEY A Referring Unavailable MANE, ASHLEY A Primary Care Unavailable ASHLEY MANE A Primary Care Unavailable ALFONSO CORTES Attending Unavailable TARA SMITH Attending Unavailable MANE, ASHLEY A Referring Unavailable MANE, ASHLEY A Primary Care Unavailable BHUPENDRA ASHLEY A Primary Care Unavailable MYRNA LAUGHLIN Attending Unavailable Medications Current Medications Medication Drug Class(es) Dates Sig (Normalized) Sig (Original) amitriptyline hydrochloride 75 mg oral tablet (11 sources) Tricyclic Antidepressant Start: 09-03-2024 take 1 tablet by mouth once daily in the evening amitriptyline (ELAVIL) 75 mg tablet Indications: Fibromyalgia TAKE ONE TABLET BY MOUTH ONCE NIGHTLY AT 8 PM. 90 tablet 3 09/03/2024 Active Start: 08-02-2022 End: 09-03-2024 take 1 tablet by mouth once daily in the evening amitriptyline (ELAVIL) 75 mg tablet Indications: Fibromyalgia TAKE ONE TABLET BY MOUTH ONCE NIGHTLY AT 8 PM. 90 tablet 3 03/05/2024 09/03/2024 Discontinued (Reorder) atorvastatin 10 mg oral tablet (7 sources) HMG-CoA Reductase Inhibitor take 1 tablet by mouth in the morning atorvastatin (LIPITOR) 10 mg tablet Take 1 tablet (10 mg total) by mouth in the morning. Active benzonatate 100 mg oral capsule (7 sources) Non-narcotic Antitussive Start: 05-16-20 22 take 1 capsule by mouth every eight hours benzonatate (TESSALON PERLES) 100 mg capsule Take 1 capsule (100 mg total) by mouth every 8 (eight) hours. 21 capsule 05/16/2022 Active Budesonide / formoterol (7 sources) Corticosteroid, beta2-Adrenergic Agonist take 2 puff(s) by inhalation in the morning budesonide-formotero l (SYMBICORT) 160-4.5 mcg/actuation inhaler Inhale 2 puffs in the morning and 2 puffs before bedtime. Active take 2 puff(s) by in halation in the morning budesonide-formoterol (SYMBICORT) 160-4. 5 mcg/actuation inhaler Inhale 2 puffs in the morning and 2 puffs before bedtime. 0 Active cefdinir 300 mg oral capsule (7 sources) Cephalosporin Antibacterial take 1 capsule by mouth in the morning, then take 1 capsule by mouth at bedtime cefDINIR (OMNICEF) 300 mg capsule Take 1 capsule (300 mg total) by mouth in the morning and 1 capsule (300 mg total) before bedtime. Active citalopram 40 mg oral tablet (7 sources) Serotonin Reuptake Inhibitor Start: 018 take 1 tablet by mouth in the morning citalopram (CeleXA) 40 mg tablet Take 1 tablet (40 mg total) by mouth in the morning. 07/17/2017 Active fluticasone propionate 0.05 mg/actuat metered dose nasal spray (7 sources) Corticosteroid Start: 022 take 1 spray(s) nasal route in the morning fluticasone propionate (FLONASE) 50 mcg/actuation nasal spray Administer 1 spray into each nostril in the morning. 16 g 11/19/2021 Active levothyroxine sodium 0.088 mg oral tablet (7 sources) l-Thyroxine take 1 tablet by mouth in the morning levothyroxine (SYNTHROID, LEVOTHROID) 88 MCG tablet Take 1 tablet (88 mcg total) by mouth in the morning. Active methocarbamol 750 mg oral tablet (10 sources) Muscle Relaxant Start: take 1 tablet by mouth once daily at bedtime methocarbamoL (ROBAXIN) 750 mg tablet Indications: Fibromyalgia Take 1 tablet (750 mg total) by mouth once daily at bedtime. 90 tablet 3 09/03/2024 Active Start: 03-05-2024 End: 09-03-2024 take 1 tablet by mouth once daily at bedtime methocarbamoL (ROBAXIN) 750 mg tablet Indications: Fibromyalgia Take 1 tablet (750 mg total) by mouth once daily at bedtime. 90 tablet 3 03/05/2024 09/03/2024 Discontinued (Reorder) Start: 08-02-2022 End: 03-05-2024 take 1 tablet by mouth once daily at bedtime methocarbamoL (ROBAXIN) 500 mg tablet Indications: Fibromyalgia Take 1 tablet (500 mg total) by mouth once daily at bedtime. 90 tablet 1 08/27/2023 03/05/2024 Discontinued (Reorder) [id number]-[id number]#[id number] 18-400-80 mg-mcg-mcg tablet (7 sources) jkpynrmp-bddf-zf on-FA-K-hb#244 18-400-80 mg-mcg-mcg tablet Take by mouth. Active [id number]-wdjk-ng on-FA-K-hb#244 18-400-80 mg-mcg-mcg tablet Take by mouth. 0 Active nabumetone 500 mg oral tablet (10 sources) Nonsteroidal Anti-inflammatory Drug Start: 09-03-2024 nabumetone (RELAF EN) 500 mg tablet Indications: Fibromyalgia One tablet daily for pain as needed 90 tablet 3 09/03/2024 Active Start: 03-05-2024 End: 09-03-2024 nabumetone (RELAFEN) 500 mg tablet Indications: Fibromyalgia One tablet daily for pain as needed 90 tablet 3 03/05/2024 09/03/2024 Discontinued (Reorder) Start: 08-02-2022 End: 03-05-2024 nabumetone (RELAFEN) 500 mg tablet Indications: Fibromyalgia One tablet twice daily for pain as needed 180 tablet 1 08/27/2023 03/05/2024 Discontinued (Reorder) ondansetron 4 mg disintegrating oral tablet (7 sources) Serotonin-3 Receptor Antagonist Start: 08-11-2024 ondansetron ODT (ZOFRAN ODT) 4 mg disintegrating tablet Dissolve 1 tablet (4 mg total) on tongue 3 (three) times a day as needed for nausea for up to 3 doses. 3 tablet 08/11/2024 Active Start: 09-21-2022 take 1 tablet by misael th every eight hours as needed for nausea ondansetron ODT (ZOFRAN ODT) 4 mg disintegrating tablet Dissolve 1 tablet (4 mg total) on tongue every 8 (eight) hours as needed for nausea for up to 21 doses. 21 tablet 09/21/2022 Active promethazine hydrochloride 25 mg oral tablet (7 sources) Phenothiazine Start: 07-08-2021 take 1 tablet by mouth every six hours as needed for nausea and vomiting promethazine (PHENERGAN) 25 mg tablet Take 1 tablet (25 mg total) by mouth every 6 (six) hours as needed for nausea or vomiting. 15 tablet 07/08/2021 Active varenicline (7 sources) Partial Cholinergic Nicotinic Agonist varenicline (CHANTIX [...] Class(es) Dates Sig (Normalized) Sig (Original) Lidocaine (12 sources) Antiarrhythmic, Amide Local Anesthetic Start: 09-03-2024 End: 09-03-2024 lidocaine (XYLOCAINE) 10 mg/mL (1 %) injection 40 mg Start: 09-03-2024 End: 09-03-2024 40 mg (4 mL), intradermal, O nce, On Lisbeth 09/03/24 at 1015, For 1 dose Start: 03-11-2024 End: 03-11-2024 lidocaine (XYLOCAINE) 10 mg/ mL (1 %) injection 40 mg Start: 03-11-2024 End: 03-11-2024 40 mg (4 mL), intradermal, O nce, On Sat03/11/24 at 1315, For 1 dose Start: 08-27-2023 End: 08-27-2023 lidocaine (XYLOCAINE) 10 mg/ mL (1 %) injection 40 mg Start: 08-27-2023 End: 08-27-2023 lidocaine (XYLOCAINE) 10 mg/ mL (1 %) injection 40 mg 1 ml triamcinolone acetonide 40 mg/ml injection (12 sources) Corticosteroid Start: 09-03-2024 End: 09-03-2024 triamcinolone acetonide (KENALOG-40) injection 40 mg Start: 09-03-2024 End: 09-03-2024 triamcinolone acetonide (SKYLA ALOG-40) injection 40 mg Start: 09-03-2024 End: 09-03-2024 40 mg, intra-articular, Once , On Sat09/03/24 at 1015, For 1 dose Start: 09-03-2024 End: 09-03-2024 40 mg, intra-articular, Once , On Sat09/03/24 at 1015, For 1 dose Start: 03-11-2024 End: 03-11-2024 [...] Problem Classification Problem Date Documented Date Episodic/Chronic Conditions associated with dizziness or vertigo (2 sources) Dizziness and giddiness; Translations: [Dizziness] Onset: 12-12-2024 Episodic Fluid and electrolyte disorders (1 source) Hypokalemia; Translations: [Hypokalemia] Onset: 12-12-2024 Episodic Headache; including migraine (1 source) Headache; including migraine Onset: 08-11-2024 Influenza (1 source) Influenza Onset: 08-11-2024 Mood disorders (1 source) Major depressive disorder, single episode, unspecified; Translations: [SHORTY DEPRESS D/O SINGLE EPIS UNS] Onset: 07-04-2021 Chronic Osteoarthritis (12 sources) Primary osteoarthritis, right shoulder; Translations: [Osteoarthritis of right acromioclavicular joint] Onset: 01-23-2022 08-27-2023 Chronic Other connective tissue disease (11 sources) Fibromyalgia; Translations: [Fibromyalgia] Onset: 09-12-2020 08-27-2023 Episodic Other connective tissue disease (10 sources) Trochanteric bursitis; Translations: [Trochanteric bursitis, right hip] Onset: 01-23-2022 08-27-2023 Episodic Other ear and sense organ disorders (7 sources) Otitis externa of left ear; Translations: [Unspecified otitis externa, left ear] Onset: 08-18-2018 08-18-2018 Chronic Other upper respiratory infections (7 sources) Chronic sinusitis; Translations: [Chronic sinusitis, unspecified] Onset: 09-03-2017 Resolved: 09-09-2017 09-09-2017 Chronic Viral infection (1 source) COVID-19; Translations: [COVID-19] Onset: 07-04-2021 Past or Other Problems Problem Classification Problem Date Documented Date Episodic/Chronic Intestinal infection (2 sources) Viral intestinal infection, unspecified; Translations: [VIRAL INTESTINAL INFECTION UNSPEC] Onset: 07-04-2021 Episodic Malaise and fatigue (3 sources) Other fatigue; Translations: [OTHER FATIGUE] Onset: 07-02-2021 Episodic Other aftercare (1 source) Other fpc (current) drug therapy; Translations: [OTH CARBONIZER CURRENT DRUG THERAPY] Onset: 07-04-2021 Episodic Other connective tissue disease (2 sources) Trochanteric bursitis, right hip; Translations: [Trochanteric bursitis, right hip] Onset: 01-23-2022 Episodic Other connective tissue disease (2 sources) Fibromyalgia; Translations: [Fibromyalgia] Onset: 09-12-2020 Episodic Other connective tissue disease (7 sources) H/O: rheumatoid arthritis; Translations: [Personal history of other diseases of the musculoskeletal system and connective tissue] Onset: 09-12-2020 09-12-2020 Episodic Other ear and sense organ disorders (7 sources) Eczema of external auditory canal; Translations: [Acute eczematoid otitis externa, bilateral] Onset: 09-09-2017 09-09-2017 Episodic Other lower respiratory disease (7 sources) Dyspnea; Translations: [Shortness of breath] Onset: 04-09-2017 04-09-2017 Episodic Other lower respiratory disease (7 sources) Cough; Translations: [Cough] Onset: 04-09-2017 04-09-2017 Episodic Other screening for suspected conditions (not mental disorders or infectious disease) (7 sources) Patient encounter status; Translations: [Encounter for screening for malignant neoplasm of colon] Onset: 08-15-2020 08-15-2020 Episodic Other upper respiratory infections (7 sources) Acute sinusitis; Translations: [Other acute sinusitis] Onset: 04-03-2017 Resolved: 09-09-2017 09-09-2017 Episodic Otitis media and related conditions (14 sources) Chronic otitis media; Translations: [Otitis media, [...] Spondylosis; intervertebral disc disorders; other back problems (7 sources) Chronic low back pain; Translations: [Chronic bilateral low back pain without sciatica] Onset: 09-12-2020 09-12-2020 Episodic Unclassified (7 sources) Onset: 09-12-2020 09-12-2020 Urinary tract infections (1 source) Urinary tract infection, site not specified; Translations: [UTI SITE NOT SPECIFIED] Onset: 07-04-2021 Episodic Viral infection (7 sources) Acute viral disease; Translations: [Viral infection, unspecified] Onset: 04-09-2022 04-09-2022 Episodic Results Test Name Value Interpretation Reference Range Facility CBC WITH AUTO DIFFERENTIALon 12-12-2024 BASOPHILS ABSOLUTE COUNT (10*3/UL) BY AUTOMATED COUNT 0.1 10*3/uL Normal 0.0-0.2 [facility] Comment on above: Performed By: #### C BCA #### [address] [address] VIR BASOPHILS RELATIVE PERCENT BY AUTOMATED COUNT 1.2 % Normal [facility] Comment on above: Performed By: #### C BCA #### [address] [address] VIR CELLAVISION DIFFERENTIAL TYPE AUTOMATED DIFFERENTIAL Normal [facility] Comment on above: Performed By: #### C BCA #### [facility] ([address] [address] VIR Eosinophils (Bld) [#/Vol] 0.1 10*3/uL Normal 0.0-0.4 [facility] Comment on above: Performed By: #### C BCA #### [facility] ([address] [address] VIR EOSINOPHILS RELATIVE PERCENT BY AUTOMATED COUNT 1.0 % Normal [facility] Comment on above: Performed By: #### C BCA #### [facility] ([address] [place] [address] VIR Erythrocyte distribution width (RBC) [Ratio] 12.3 % Normal 11.5-15 [facility] Comment on above: Performed By: #### C BCA #### [facility] ([address] [place] [address] VIR Hematocrit (Bld) [Volume fraction] 36.8 % Normal 35-47 [facility] Comment on above: Performed By: #### C BCA #### [facility] ([address] [address] VIR Hemoglobin (Bld) [Mass/Vol] 12.8 g/dL Normal 11.7-15.5 [facility] Comment on above: Performed By: #### C BCA #### [facility] ([address] [address] VIR LYMPHOCYTES ABSOLUTE COUNT (10*3/UL) BY AUTOMATED COUNT 2.2 10*3/uL Normal 1.0-3.5 [facility] Comment on above: Performed By: #### C BCA #### [facility] ([address] [address] VIR LYMPHOCYTES RELATIVE PERCENT BY AUTOMATED COUNT 33.0 % Normal [facility] Comment on above: Performed By: #### C BCA #### [facility] ([address] [place] [address] VIR MCH (RBC) [Entitic mass] 29.3 pg Normal 27-34 [facility] Comment on above: Performed By: #### C BCA #### [facility] ([address] [address] VIR MCHC (RBC) [Mass/Vol] 34.9 g/dL Normal 32-36 [facility] Comment on above: Performed By: #### C BCA #### [facility] ([address] [place] [address] VIR MCV (RBC) [Entitic vol] 84 fL Normal 80-100 [facility] Comment on above: Performed By: #### C BCA #### [facility] ([facility]) [address] [place] [address]. [place] [address] VIR MONOCYTES ABSOLUTE COUNT (10*3/UL) BY AUTOMATED COUNT 0.4 10*3/uL Normal 0.0-0.9 [facility] Comment on above: Performed By: #### C BCA #### [facility] ([address] [address] VIR MONOCYTES RELATIVE PERCENT BY AUTOMATED COUNT 6.3 % Normal [facility] Comment on above: Performed By: #### C BCA #### [facility] ([address] [address] VIR NEUTROPHILS ABSOLUTE COUNT BY AUTOMATED COUNT 3.9 10*3/uL Normal 1.5-6.6 [facility] Comment on above: Performed By: #### C BCA #### [facility] ([address] [address] VIR NEUTROPHILS RELATIVE PERCENT BY AUTOMATED COUNT 58.5 % Normal [facility] Comment on above: Performed By: #### C BCA #### [facility] ([address] [place] [address] VIR Platelet mean volume (Bld) [Entitic vol] 8.9 fL Normal 7-12 [facility] Comment on above: Performed By: #### C BCA #### [facility] ([address] [place] [address] VIR Platelets (Bld) [#/Vol] 234 10*3/uL Normal 150-450 [facility] Comment on above: Performed By: #### C BCA #### [facility] ([address] [address] VIR RBC COUNT 4.37 X10E12/L Normal 3.8-5.2 [facility] Comment on above: Performed By: #### C BCA #### [facility] ([address] [place] [address] VIR WBC (Bld) [#/Vol] 6.7 10*3/uL Normal 4-11 [facility] Comment on above: Performed By: #### C BCA #### [facility] ([address] [place] [address] VIR COMPREHENSIVE METABOLIC PANE Rufino 12-12-2024 Albumin [Mass/Vol] 3.9 g/dL Normal 3.2-5.3 [facility] Comment on above: Performed By: #### C MP #### [facility] ([address] [place] [address] VIR ALP [Catalytic activity/Vol] 55 U/L Normal 39-130 [facility] Comment on above: Performed By: #### C MP #### [facility] ([address] [place] [address] VIR ALT [Catalytic activity/Vol] 16 U/L Normal <=31 [facility] Comment on above: Performed By: #### C MP #### [facility] ([address] [place] [address] VIR Anion gap [Moles/Vol] 13 mmol/L Normal 5-15 [facility] Comment on above: Performed By: #### C MP #### [facility] ([address] [place] [address] VIR AST [Catalytic activity/Vol] 18 U/L Normal <=41 [facility] Comment on above: Performed By: #### C MP #### [facility] ([address] [place] [address] VIR Bilirubin [Mass/Vol] 0.7 mg/dL Normal 0.3-1.2 [facility] Comment on above: Performed By: #### C MP #### [facility] ([address] [address] VIR Calcium [Mass/Vol] 8.9 mg/dL Normal 8.5-10.5 [facility] Comment on above: Performed By: #### C MP #### [facility] ([address] [address] VIR Chloride [Moles/Vol] 105 mmol/L Normal 98-109 [facility] Comment on above: Performed By: #### C MP #### [facility] ([address] [address] VIR CO2 [Moles/Vol] 20 mmol/L Low 22-32 [facility] Comment on above: Performed By: #### C MP #### [facility] ([address] [address] VIR Creatinine [Mass/Vol] 0.70 mg/dL Normal 0.40-1.00 [facility] Comment on above: Result Comment: METH OD TRACEABLE TO IDMS STANDARD Performed By: #### C MP #### [facility] ([address] [address] VIR EGFR (CKD-EPI) NON-RACE DEPENDENT >^90 Normal >=60 [facility] Comment on above: Result Comment: eGFR not reported due to non-numeric value for Creatinine. Reported eGFR is based on the CKD-EPI 2021 equation that does not use a race coefficient. Performed By: #### C MP #### [facility] ([address] [place] [address] VIR Glucose [Mass/Vol] 119 mg/dL High 65-99 [facility] Comment on above: Performed By: #### C MP #### [facility] ([address] [place] [address] VIR Potassium [Moles/Vol] 3.2 mmol/L Low 3.5-5.0 [facility] Comment on above: Performed By: #### C MP #### [facility] ([place] [address] [place] [address] VIR Protein [Mass/Vol] 6.5 g/dL Normal 6.0-8.0 [facility] Comment on above: Performed By: #### C MP #### [facility] ([address] [place] [address] VIR Sodium [Moles/Vol] 138 mmol/L Normal 134-146 [facility] Comment on above: Performed By: #### C MP #### [facility] ([address] [place] [address] VIR Urea nitrogen [Mass/Vol] 20 mg/dL Normal 5-23 [facility] Comment on above: Performed By: #### C MP #### [facility] ([address] [place] [address] VIR MAGNESIUMon 12-12-2024 Magnesium [Mass/Vol] 1.9 mg/dL Normal 1.8-2.6 [facility] Comment on above: Performed By: #### M G #### [facility] ([address] [place] [address] VIR POCT NURSING URINE MACROSCOP IC UAon 12-12-2024 BILIRUBIN ROXANN Negative Normal Negative [facility] Comment on above: Performed By: #### N UM #### [facility] ([address] [place] [address] VIR BLOOD/HGB ROXANN Negative Normal Negative [facility] Comment on above: Performed By: #### N UM #### [facility] ([address] [place] [address] VIR GLUCOSE ROXANN Negative Normal Negative [facility] Comment on above: Performed By: #### N UM #### [facility] ([address] [place] [address] VIR KETONES ROXANN 15 mg/dL Abnormal Negative [facility] Comment on above: Performed By: #### N UM #### [facility] ([address] [place] [address] VIR LEUKOCYTE ESTERASE ROXANN Negative Normal Negative [facility] Comment on above: Performed By: #### N UM #### [facility] ([address] [place] [address] VIR NITRITE ROXANN Negative Normal Negative [facility] Comment on above: Performed By: #### N UM #### [address] [place] [address] VIR PH ROXANN 8.5 Normal 5.0, 6.0, 6.5, 7.0, 7.5, 8.0, 8.5, 5.5 [facility] Comment on above: Performed By: #### N UM #### [facility] ([address] [place] [address] VIR PROTEIN ROXANN Negative Normal Negative [facility] Comment on above: Performed By: #### N UM #### [address] [place] [address] VIR SPECIFIC GRAVITY ROXANN 1.020 Normal 1.010, 1.015, 1.020, 1.025 [facility] Comment on above: Performed By: #### N UM #### [address] [place] [address] VIR UROBILINOGEN ROXANN 0.2 E.U./dL Normal [facility] [place] Comment on above: Performed By: #### N UM #### [facility] ([address] [place] [address] VIR TROP I, HIGH SENSITIVITY 1 H OURon 12-12-2024 TROPONIN I, HIGH SENSITIVITY 3 ng/L Normal <16 [facility] Comment on above: Performed By: #### T [email or web address] #### [facility] ([facility]) [address] [place] [address]. [place] [address] VIR TROPONIN I, HIGH SENSITIVITY 0 HOURon 12-12-2024 TROPONIN I, HIGH SENSITIVITY 2 ng/L Normal <16 [facility] Comment on above: Performed By: #### T NIHS0 #### [facility] ([facility]) [address] [place] [address]. [place] [address] VIR BASIC METABOLIC PANLon 08-11 Anion gap [Moles/Vol] 11 mmol/L Normal 5-15 [facility] Comment on above: Performed By: #### C BCA, BMP #### [facility] ([id number]) [address] [place] [address] Calcium [Mass/Vol] 9.2 mg/dL Normal 8.5-10.5 [facility] Comment on above: Performed By: #### C BCA, BMP #### [facility] ([id number]) [address] [place] [address] Chloride [Moles/Vol] 102 mmol/L Normal 98-109 [facility] Comment on above: Performed By: #### C BCA, BMP #### [facility] ([id number]) [address] [place] [address] CO2 [Moles/Vol] 25 mmol/L Normal 22-32 [facility] Comment on above: Performed By: #### C BCA, BMP #### [facility] ([id number]) [address] [place] [address] Creatinine [Mass/Vol] 0.68 mg/dL Normal 0.40-1.00 [facility] Comment on above: Result Comment: METH OD TRACEABLE TO IDMS STANDARD Performed By: #### C ANATOLY, BMP #### [facility] ([id number]) [address] [place] [address] eGFR (CKD-EPI) NON-RACE DEPENDENT >90 Normal >59 [facility] Comment on above: Result Comment: Reported eGFR is based on the CKD-EPI 2020 equation that does not use a race coefficient. Performed By: #### C BCA, BMP #### [facility] ([id number]) [address] [place] [address] Glucose [Mass/Vol] 88 mg/dL Normal 65-99 [facility] Comment on above: Performed By: #### C ANATOLY, BMP #### [facility] ([id number]) [address] [place] [address] Potassium [Moles/Vol] 3.3 mmol/L Low 3.5-5.0 [facility] Comment on above: Performed By: #### C BCA, BMP #### [facility] ([id number]) [address] [place] [address] Sodium [Moles/Vol] 138 mmol/L Normal 134-146 [facility] Comment on above: Performed By: #### C BCA, BMP #### [facility] ([id number]) [address] [place] [address] 40728 Urea nitrogen [Mass/Vol] 18 mg/dL Normal 5-23 [facility] Comment on above: Performed By: #### C BCA, BMP #### [facility] ([id number]) [address] [place] [address] CBC AND AUTO DIFFon 18- 25 ABSOLUTE BASOPHIL 0.0 X10E9/L Normal 0.0-0.2 [facility] Comment on above: Performed By: #### C BCA, BMP #### [facility] ([id number]) [address] [place] [address] 77703 ABSOLUTE NEUTROPHIL 1.8 X10E9/L Normal 1.5-6.6 [facility] Comment on above: Performed By: #### C ANATOLY, BMP #### [facility] ([id number]) [address] [place] [address] 31730 Basophils/100 WBC (Bld) 0.9 % Normal [facility] Comment on above: Performed By: #### C ANATOLY, BMP #### [facility] ([id number]) [address] [place] [address] 80189 Eosinophils (Bld) [#/Vol] 0.0 10*3/uL Normal 0.0-0.4 [facility] Comment on above: Performed By: #### C ANATOLY, BMP #### [facility] ([id number]) [address] [place] [address] 28470 Eosinophils/100 WBC (Bld) 1.0 % Normal [facility] Comment on above: Performed By: #### C ANATOLY, BMP #### [facility] ([id number]) [address] [place] [address] 49609 Erythrocyte distribution width (RBC) [Ratio] 12.2 % Normal 11.5-15.0 [facility] Comment on above: Performed By: #### C ANATOLY, BMP #### [facility] ([id number]) [address] [place] [address] 93954 Hematocrit (Bld) [Volume fraction] 42.7 % Normal 35-47 [facility] Comment on above: Performed By: #### C ANATOLY, BMP #### [facility] ([id number]) [address] [place] [address] 99829 Hemoglobin (Bld) [Mass/Vol] 14.7 g/dL Normal 11.7-15.5 [facility] Comment on above: Performed By: #### C ANATOLY, BMP #### [facility] ([id number]) [address] [place] [address] 29245 Lymphocytes (Bld) [#/Vol] 1.1 10*3/uL Normal 1.0-3.5 [facility] Comment on above: Performed By: #### C BCA, BMP #### [facility] ([id number]) [address] [place] [address] 78037 Lymphocytes/100 WBC (Bld) 33.0 % Normal [facility] Comment on above: Performed By: #### C ANATOLY, BMP #### [facility] ([id number]) [address] [place] [address] 88260 MCH (RBC) [Entitic mass] 29.7 pg Normal 27-34 [facility] Comment on above: Performed By: #### C ANATOLY, BMP #### [facility] ([id number]) [address] [place] [address] 12201 MCHC (RBC) [Mass/Vol] 34.5 g/dL Normal 32-36 [facility] Comment on above: Performed By: #### C ANATOLY, BMP #### [facility] ([id number]) [address] [place] [address] 79599 MCV (RBC) [Entitic vol] 86 fL Normal 80-100 [facility] Comment on above: Performed By: #### C ANATOLY, BMP #### [facility] ([id number]) [address] [place] [address] 78561 Monocytes (Bld) [#/Vol] 0.4 10*3/uL Normal 0-0.9 [facility] Comment on above: Performed By: #### C BCA, BMP #### [facility] ([id number]) [address] [place] [address] 91437 Monocytes/100 WBC (Bld) 12.7 % Normal [facility] Comment on above: Performed By: #### C ANATOLY, BMP #### [facility] ([id number]) [address] [place] [address] 53153 Neutrophils/100 WBC (Bld) 52.4 % Normal [facility] Comment on above: Performed By: #### C ANATOLY, BMP #### [facility] ([id number]) [address] [place] [address] 90499 Platelet mean volume (Bld) [Entitic vol] 9.1 fL Normal 7-12 [facility] Comment on above: Performed By: #### C ANATOLY, BMP #### [facility] ([id number]) [address] [place] [address] 33129 Platelets (Bld) [#/Vol] 190 10*3/uL Normal 150-450 [facility] Comment on above: Performed By: #### C ANATOLY, BMP #### [facility] ([id number]) [address] [place] [address] 01692 RBC COUNT 4.97 X10E12/L Normal 3.80-5.20 [facility] Comment on above: Performed By: #### Wallace LEDBETTER, BMP #### [facility] ([id number]) [address] [place] [address] 74717 WBC (Bld) [#/Vol] 3.5 10*3/uL Low 4.0-11.0 [facility] Comment on above: Performed By: #### Wallace LEDBETTER, BMP #### [facility] ([id number]) [address] [place] [address] 15434 SARS/FLU A+B/RSV by NAAT/Mol ecularon 08-11-2024 SARS/FLU A+B/RSV by NAAT/Molecular FLU A PCR Negative (qualifier value) FLU B PCR Negative (qualifier value) RSV by PCR Negative (qualifier value) SARS CoV 2 Not detected (qualifier value) NOTE The Xpert Xpress SARS-CoV-2/Flu/RSV Plus test is a rapid, multiplexed real-time RT-PCR test intended for the simultaneous qualitative detection and differentiation of SARS-CoV-2, influenza A, influenza B and respiratory syncytial virus (RSV) viral RNA from individuals suspected of respiratory viral infection consistent with COVID-19 by their healthcare provider. This test has not been validated in asymptomatic patients. The Xpert Xpress SARS-CoV-2 test is intended for use by qualified and trained operators who are performing tests using either [employer] or GuideIT systems and is limited to laboratories that meet the CLIA requirements to perform high and moderate complexity tests. The Xpert Xpress SARS-CoV-2/Flu/RSV Plus is only for use under the Food and Drug Administration's Emergency Use Authorization. Results are for the simultaneous detection and differentiation of SARS-CoV-2, influenza A, influenza B and RSV nucleic acids in clinical specimens. SARS-CoV-2, influenza A, influenza B and RSV RNA identified by this test are generally detectable in upper respiratory samples during the acute phase of infection. Positive results are indicative of the presence of the identified virus, but do not rule out bacterial infection or co-infection with other pathogens not detected by this test. Clinical correlation with patient history and other diagnostic information is necessary to determine patient infection status. The agent detected may not be the definite cause of disease. Negative results do not preclude SARS-CoV-2, influenza A, influenza B and RSV infection and should not be used as the sole basis for treatment or other patient management decisions. Negative results must be combined with clinical observations, patient history and epidemiological information. An Invalid result may occur with specimen-associated inhibition unable to be resolved with specimen repeat. Fact Sheet for Healthcare Providers: https://www.fda.gov/m edia/174451/download Fact Sheet for Patients: https://www.fda.gov/m edia/505755/download Normal [facility] Comment on above: Performed By: #### C OVFLR #### [facility] ([id number]) [address] [place] [address], [place] [address] MARCO ANTONIO KHAI [place] 2024 BILIRUBIN ROXANN MODERATE Abnormal NEG [facility] Comment on above: Performed By: #### N UM #### [facility] ([id number]) [address] [place] [address] [place] [address] BLOOD/HGB ROXANN Negative Normal NEG [facility] Comment on above: Performed By: #### N UM #### [facility] ([id number]) [address] [place] [address], [place] [address] GLUCOSE ROXANN Negative Normal NEG [facility] Comment on above: Performed By: #### N UM #### [facility] ([id number]) [address] [place] [address], [place] [address] KETONES ROXANN 40 mg/dL Abnormal NEG [facility] Comment on above: Performed By: #### N UM #### [facility] ([id number]) [address] [place] [address] [place] [address] LEUKOCYTE ESTERASE ROXANN Negative Normal NEG [facility] Comment on above: Performed By: #### N UM #### [facility] ([id number]) [address] [place] [address] [place] [address] NITRITE ROXANN Negative Normal NEG [facility] Comment on above: Performed By: #### N UM #### [facility] ([id number]) [address] [place] [address] [place] [address] PH ROXANN 5.5 Normal 5.0-8.5 [facility] Comment on above: Performed By: #### N UM #### [facility] ([id number]) [address] [place] [address] [place] [address] PROTEIN ROXANN 30 mg/dL Abnormal NEG [facility] Comment on above: Performed By: #### N UM #### [facility] ([id number]) [address] [place] [address], [place] [address] SPECIFIC GRAVITY ROXANN >=1.030 Normal 1.003-1.035 [facility] Comment on above: Performed By: #### N UM #### [facility] ([id number]) [address] [facility] [place] [address] UROBILINOGEN ROXANN 0.2 eu/dL Normal <1.1 [facility] Comment on above: Performed By: #### N UM #### [facility] ([id number]) [address] [facility] [place] [address] T4 FREE AND TSHon 01-20-2024 T4 - FREE 1.02 UG/DL Normal (0.64 - 1.79) [facility] Comment on above: Order Comment: FACIL ITY: DR MANE - OFFICE [id number] Performed By: #### T 4FTSH #### [facility] [address] [facility], [address] TSH Qn 1.82 m[IU]/L Normal (0.470 - 4.680) [facility] Comment on above: Order Comment: FACIL ITY: DR MANE - OFFICE [id number] Performed By: #### T 4FTSH #### [facility] [address] [facility], [address] [facility]on SARS-CoV-2 (COVID-19) RNA DOMINIC+probe Ql (Unsp spec) Not detected Normal NOT DETECTED [facility] Comment on above: Result Comment: This test is not yet approved or cleared by the [place] FDA. When there are no FDA-approved or cleared tests available, and other criteria are met, FDA can make tests available under an emergency access mechanism called an Emergency Use Authorization (EUA). The EUA for this test is supported by the Felting Machine Operator Helper of Health and Human Service's (HHS's) declaration [...] SARS-CoV-2. Performed By: #### C VDTBH #### [facility] [address] [place] [address] Dr. Ewa Solano INFLUENZA A AND B AGon 05-29 [facility] SEE BELOW Normal [facility] Comment on above: Result Comment: Nega tive for Flu A protein angiten. Infection due to Flu A cannot be ruled out. Flu A angiten in the sample may be below the detection limit of the test. Performed By: #### I NFLUAB #### [facility] [address] [place] [address] Dr. Ewa Solano INFLUBNEG SEE BELOW Normal [facility] Comment on above: Result Comment: Nega tive for Flu B protein antigen. Infection due to Flu B cannot be ruled out. Flu B antigen in the sample may be below the detection limit of the test. Performed By: #### I NFLUAB #### [facility] [address] [place] [address] Dr. Ewa Solano INFLUENZA A AG Negative Normal NEGATIVE SEE COMMENT [facility] Comment on above: Performed By: #### I NFLUAB #### [facility] [address] [place] [address] Dr. Ewa Solano INFLUENZA B AG Negative Normal NEGATIVE SEE COMMENT [facility] Comment on above: Performed By: #### I NFLUAB #### [facility] [address] [place] [address] Dr. Ewa Solano CULTURE URINEon 07-03-2021 CULTURE URINE Culture Observations : GREATER THAN TWO ORGANISMS PRESENT. PLEASE RESUBMIT CLEAN CATCH MID-STREAM URINE IF CLINICALLY INDICATED. Normal [facility] Comment on above: Performed By: #### U RCX #### [facility] [address] [place] [address] Dr. Ewa Solano CBC AUTO DIFFon 07-02-2021 BASO # 0.0 103/ul Normal 0.0-0.1 [facility] Comment on above: Performed By: #### C BC #### [facility] [address] [place] [address] Dr. Ewa Solano Basophils/100 WBC (Bld) 0.4 % Normal 0.2-2.0 [facility] Comment on above: Performed By: #### C BC #### [facility] [address] [place] [address] Dr. Ewa Solano EO # 0.1 103/ul Normal 0.0-0.7 [facility] Comment on above: Performed By: #### C BC #### [facility] [address] [place] [address] Dr. Ewa Solano Eosinophils/100 WBC (Bld) 0.7 % Critically low 0.9-7.0 [facility] Comment on above: Performed By: #### C BC #### [facility] [address] [place] [address] Dr. Ewa Solano Erythrocyte distribution width (RBC) [Ratio] 11.9 % Normal 11.0-15.0 [facility] Comment on above: Performed By: #### C BC #### [facility] [address] [place] [address] Dr. Ewa Solano Hematocrit (Bld) [Volume fraction] 47.0 % Normal 36.0-48.0 [facility] Comment on above: Performed By: #### C BC #### [facility] [address] [place] [address] Dr. Ewa Solano Hemoglobin (Bld) [Mass/Vol] 16.2 g/dL Critically high 12.0-16.0 [facility] Comment on above: Performed By: #### C BC #### [facility] [address] [place] [address] Dr. Ewa Solano IG # 0.02 10e3/ul Normal 0.00-0.03 [facility] Comment on above: Performed By: #### C BC #### [facility] [address] [place] [address] Dr. Ewa Solano IG % 0.3 % Normal 0.0-0.5 [facility] Comment on above: Performed By: #### C BC #### [facility] [address] [place] [address] Dr. Ewa Solano LYMPH # 2.1 103/ul Normal 1.2-3.8 [facility] Comment on above: Performed By: #### C BC #### [facility] [address] [place] [address] Dr. Ewa Solano Lymphocytes/100 WBC (Bld) 30.0 % Normal 20.5-60.0 [facility] Comment on above: Performed By: #### C BC #### [facility] [address] [place] [address] Dr. Ewa Solano MANUAL DIFF REQ NO Normal [facility] Comment on above: Performed By: #### C BC #### [facility] [address] [place] [address] Dr. Ewa Solano MCH (RBC) [Entitic mass] 29.1 pg Normal 26.7-34.0 [facility] Comment on above: Performed By: #### C BC #### [facility] [address] [place] [address] Dr. Ewa Solano MCHC (RBC) [Mass/Vol] 34.5 g/dL Normal 29.9-35.2 [facility] Comment on above: Performed By: #### C BC #### [facility] [address] [place] [address] Dr. Ewa Solano MCV (RBC) [Entitic vol] 84.4 fL Normal 81.0-99.0 [facility] Comment on above: Performed By: #### C BC #### [facility] [address] [place] [address] Dr. Ewa Solano MONO # 0.4 103/ul Normal 0.3-0.8 [facility] Comment on above: Performed By: #### C BC #### [facility] [address] [place] [address] Dr. Ewa Solano Monocytes/100 WBC (Bld) 5.7 % Normal 1.7-12.0 [facility] Comment on above: Performed By: #### C BC #### [facility] [address] [place] [address] Dr. Ewa Solano NEUT # 4.4 103/ul Normal 1.4-6.5 [facility] Comment on above: Performed By: #### C BC #### [facility] [address] [place] [address] Dr. Ewa Solano Neutrophils/100 WBC (Bld) 62.9 % Normal 43.0-75.0 [facility] Comment on above: Performed By: #### C BC #### [facility] [address] [place] [address] Dr. Ewa Solano Platelet mean volume (Bld) [Entitic vol] 10.7 fL Normal 9.5-13.5 [facility] Comment on above: Performed By: #### C BC #### [facility] [address] [place] [address] Dr. Ewa Solano PLT 275 103/ul Normal 150-450 [facility] Comment on above: Performed By: #### C BC #### [facility] [address] [place] [address] Dr. Ewa Solano RBC 5.57 106/ul Critically high 4.20-5.40 [facility] Comment on above: Performed By: #### C BC #### [facility] [address] [place] [address] Dr. Ewa Solano WBC 7.0 103/ul Normal 4.0-11.0 [facility] Comment on above: Performed By: #### C BC #### [facility] [address] [place] [address] Dr. Ewa Solano Covid-19 PCR (CVDTB)on SARS-CoV-2 (COVID-19) RNA DOMINIC+probe Ql (Unsp spec) Detected Critically abnormal NOT DETECTED [facility] Comment on above: Result Comment: This test is not yet approved or cleared by the [place] FDA. When there are no FDA-approved or cleared tests available, and other criteria are met, FDA can make tests available under an emergency access mechanism called an Emergency Use Authorization (EUA). The EUA for this test is supported by the Felting Machine Operator Helper of Health and Human Service's (HHS's) declaration [...] longer be used). Performed By: #### C VDTB #### [facility] [address] [place] [address] Dr. Ewa Solano ER URINE PROFILEon 2 Bilirubin Ql (U) Negative Normal NEGATIVE [facility] Comment on above: Performed By: #### U MICRO, ERUR #### [facility] [address] [place] [address] Dr. Ewa Solano Clarity (U) CLEAR Normal CLEAR [facility] Comment on above: Performed By: #### U MICRO, ERUR #### [facility] [address] [place] [address] Dr. Ewa Solano Color (U) YELLOW Normal YELLOW [facility] Comment on above: Performed By: #### U MICRO, ERUR #### [facility] [address] [place] [address] Dr. Ewa Solano ERUAHD A micrscopic examination will be performed if indicated. Normal [facility] Comment on above: Performed By: #### U MICRO, ERUR #### [facility] [address] [place] [address] Dr. Ewa Solano Glucose Ql (U) Negative Normal NEGATIVE [facility] Comment on above: Performed By: #### U MICRO, ERUR #### [facility] [address] [place] [address] Dr. Ewa Solano Hemoglobin Ql (U) Negative Normal NEGATIVE [facility] Comment on above: Performed By: #### U MICRO, ERUR #### [facility] [address] [place] [address] Dr. Ewa Solano Ketones Ql (U) TRACE Abnormal NEGATIVE [facility] Comment on above: Performed By: #### U MICRO, ERUR #### [facility] [address] [place] [address] Dr. Ewa Solano LEUKOCYTES TRACE Abnormal NEGATIVE [facility] Comment on above: Performed By: #### U MICRO, ERUR #### [facility] [address] [place] [address] Dr. Ewa Solano Nitrite Ql (U) Negative Normal NEGATIVE [facility] Comment on above: Performed By: #### U MICRO, ERUR #### [facility] [address] [address] [address] Ewa Solano pH (U) 6.0 [pH] Normal 5-9 [facility] Comment on above: Performed By: #### U MICRO, ERUR #### [facility] [address] [place] [address] Dr. Ewa Solano SPEC GRAVITY 1.025 Normal 1.005-<=1.025 [facility] Comment on above: Performed By: #### U MICRO, ERUR #### [facility] [address] [place] [address] Dr. Ewa Solano UA PROTEIN Negative Normal NEGATIVE/ TRACE [facility] Comment on above: Performed By: #### U MICRO, ERUR #### [facility] [address] [place] [address] Dr. Ewa Solano UR MICRO IND INDICATED Normal [facility] Comment on above: Performed By: #### U MICRO, ERUR #### [facility] [address] [place] [address] Dr. Ewa Solano Urobilinogen Qn (U) 0.2 {Vannessa'U}/dL Normal 0.2 - 1. 0 [facility] Comment on above: Performed By: #### U MICRO, ERUR #### [facility] [address] [place] [address] Dr. Ewa Solano PROF 14(COMP METB)on 022 Albumin [Mass/Vol] 4.1 g/dL Normal 3.5-5.0 [facility] Comment on above: Performed By: #### C MP #### [facility] [address] [place] [address] Dr. Ewa Solano Albumin/Globulin [Mass ratio] 1.1 {ratio} Normal [facility] Comment on above: Performed By: #### C MP #### [facility] [address] [address] [address] Ewa Solano ALP [Catalytic activity/Vol] 113 U/L Normal 38-126 [facility] Comment on above: Performed By: #### C MP #### [facility] [address] [address] [address] Ewa Solano ALT [Catalytic activity/Vol] 43 U/L Normal 9-52 [facility] Comment on above: Performed By: #### C MP #### [facility] [address] [place] [address] Dr. Ewa Solano Anion gap [Moles/Vol] 13.3 mmol/L Normal [facility] Comment on above: Performed By: #### C MP #### [facility] [address] [place] [address] Dr. Ewa Solano AST [Catalytic activity/Vol] 22 U/L Normal 14-36 [facility] Comment on above: Performed By: #### C MP #### [facility] [address] [place] [address] Dr. Ewa Solano Bilirubin [Mass/Vol] 0.5 mg/dL Normal 0.2-1.3 [facility] Comment on above: Performed By: #### C MP #### [facility] [address] [place] [address] Dr. Ewa Solano Calcium [Mass/Vol] 9.6 mg/dL Normal 8.4-10.2 [facility] Comment on above: Performed By: #### C MP #### [facility] [address] [place] [address] Dr. Ewa Solano Chloride [Moles/Vol] 104 mmol/L Normal 98-107 [facility] Comment on above: Performed By: #### C MP #### [facility] [address] [place] [address] Dr. Ewa Solano CO2 [Moles/Vol] 27.2 mmol/L Normal 22.0-30.0 [facility] Comment on above: Performed By: #### C MP #### [facility] [address] [address] [address] Ewa Solano Creatinine [Mass/Vol] 0.78 mg/dL Normal 0.52-1.04 [facility] Comment on above: Performed By: #### C MP #### [facility] [address] [address] [address] Ewa Solano EGFR-AF MONTSERRATIAN >60 Normal >=60 [facility] Comment on above: Performed By: #### C MP #### [facility] [address] [address] [address] Ewa Solano EGFR-NON AF [place]ERR[place]IAN >60 Normal >=60 [facility] Comment on above: Performed By: #### C MP #### [facility] [address] [place] [address] Dr. Ewa Solano Globulin (S) [Mass/Vol] 3.6 g/dL Normal [facility] Comment on above: Performed By: #### C MP #### [facility] [address] [place] [address] Dr. Ewa Solano Glucose [Mass/Vol] 98 mg/dL Normal 74-106 [facility] [facility] Comment on above: Performed By: #### C MP #### [facility] [address] [place] [address] Dr. Ewa Solano Potassium [Moles/Vol] 3.5 mmol/L Normal 3.4-5.0 [facility] Comment on above: Performed By: #### C MP #### [facility] [address] [address] [address] Ewa Solano Protein [Mass/Vol] 7.7 g/dL Normal 6.1-8.2 [facility] Comment on above: Performed By: #### C MP #### [facility] [address] [place] [address] Dr. Ewa Solano Sodium [Moles/Vol] 141 mmol/L Normal 137-145 [facility] Comment on above: Performed By: #### C MP #### [facility] [address] [place] [address] Dr. Ewa Solano Urea nitrogen [Mass/Vol] 15.0 mg/dL Normal 7.0-17.0 [facility] Comment on above: Performed By: #### C MP #### [facility] [address] [place] [address] Dr. Ewa Solano Urea nitrogen/Creatinine [Mass ratio] 19.2 mg/mg Normal [facility] Comment on above: Performed By: #### C MP #### [facility] [address] [place] [address] Dr. Ewa Solano URINE MICROSCOPIC ONLYon BACTERIA TRACE Abnormal NONE SEEN [facility] Comment on above: Performed By: #### U MICRO, ERUR #### [facility] [address] [place] [address] Dr. Ewa Solano Bacteria identified Cx Nom (U) INDICATED Normal [facility] Comment on above: Performed By: #### U MICRO, ERUR #### [facility] [address] [place] [address] Dr. Ewa Solano CAST NONE SEEN Normal NONE SEEN [facility] Comment on above: Performed By: #### U MICRO, ERUR #### [facility] [address] [place] [address] Dr. Ewa Solano Crystals LM Nom (Urine sed) NONE SEEN Normal NONE SEEN [facility] Comment on above: Performed By: #### U MICRO, ERUR #### [facility] [address] [place] [address] Dr. Ewa Solano Epithelial cells LM Ql (Urine sed) FEW Abnormal NONE SEEN /RARE [facility] Comment on above: Performed By: #### U MICRO, ERUR #### [facility] [address] [place] [address] Dr. Ewa Solano MUCOUS SMALL Abnormal NONE SEEN [facility] Comment on above: Performed By: #### U MICRO, ERUR #### [facility] [address] [place] [address] Dr. Ewa Solano RBC NONE SEEN Abnormal 0-2 [facility] Comment on above: Performed By: #### U MICRO, ERUR #### [facility] [address] [address] [address] Ewa Solano WBC 5-10 Abnormal NONE SEEN [facility] Comment on above: Performed By: #### U MICRO, ERUR #### [facility] [address] [address] [address] Ewa Solano XR hand RT min 3V*on 021 XR hand RT min 3V* [facility] Main [place] [address] [place] [address] XRay Report Signed Patient: Sara Sandoval MR#: [id number] 2 : 1970 Acct:[id number] Age/Sex: 50 / F ADM Date: 10/12/20 Loc: [facility] Room: Type: [facility] Attending Dr: Meka Queen MD Ordering [...] Rick Vu M.D.10/12/2020 3:42 PM Dictation Location: [place] [address] Transcribed By: [facility] 10/12/20 154 Dictated By: Rick Vu II, MD 10/12/20 154 Signed By: 10/12/[address] [facility] Vital Signs Date Time Vital Sign Value Performing Clinician Esdras lozada 09-03-2024 09:50-0400 Body height 170.2 cm Tara Smith MD [facility] 09-03-2024 09:50-0400 Body mass index (BMI) [Ratio] 29.91 kg/m2 Tara Smith MD Work Phone: [facility] 09-03-2024 09:50-0400 Body weight 86.64 kg Tara Smith MD Work Phone: [facility] 09-03-2024 09:50-0400 Diastolic blood pressure 52 mm[Hg] Tara Smith MD Work Phone: [facility] 09-03-2024 09:50-0400 Respiratory rate 18 /min Tara Smith MD Work Phone: [facility] 09-03-2024 09:50-0400 Systolic blood pressure 99 mm[Hg] Tara Smith MD Work Phone: [facility] 03-11-2024 12:51-0400 Body height 170.2 cm Tara Smith MD Work Phone: [facility] 03-11-2024 12:51-0400 Body mass index (BMI) [Ratio] 27.4 kg/m2 Tara Smith MD Work Phone: [facility] 03-11-2024 12:51-0400 Body weight 79.38 kg Tara Smith MD Work Phone: [facility] 03-11-2024 12:51-0400 Diastolic blood pressure 74 mm[Hg] Tara Smith MD Work Phone: [facility] 03-11-2024 12:51-0400 Respiratory rate 18 /min Tara Smith MD Work Phone: [facility] 03-11-2024 12:51-0400 Systolic blood pressure 122 mm[Hg] Tara Smith MD Work Phone: [facility] 03-05-2024 09:20-0400 Body height 170.2 cm Tara Smith MD Work Phone: [facility] 03-05-2024 09:20-0400 Body mass index (BMI) [Ratio] 27.4 kg/m2 Tara Smith MD Work Phone: [facility] 03-05-2024 09:20-0400 Body weight 79.38 kg Tara Smith MD Work Phone: [facility] 03-05-2024 09:20-0400 Diastolic blood pressure 58 mm[Hg] Tara Smith MD Work Phone: [facility] 03-05-2024 09:20-0400 Respiratory rate 18 /min Tara Smith MD Work Phone: [facility] 03-05-2024 09:20-0400 Systolic blood pressure 106 mm[Hg] Tara Smith MD Work Phone: [facility] 08-27-2023 09:48-0400 Body height 170.2 cm Tara Smith MD Work Phone: [facility] 08-27-2023 09:48-0400 Body mass index (BMI) [Ratio] 25.84 kg/m2 Tara Smith MD Work Phone: [facility] 08-27-2023 09:48-0400 Body weight 74.84 kg Tara Smith MD Work Phone: [facility] 08-27-2023 09:48-0400 Diastolic blood pressure 62 mm[Hg] Tara Smith MD Work Phone: [facility] 08-27-2023 09:48-0400 Respiratory rate 18 /min Tara Smith MD Work Phone: [facility] 08-27-2023 09:48-0400 Systolic blood pressure 110 mm[Hg] Tara Smith MD Work Phone: [facility] Encounters Encounter Date Encounter Type Care Provider Facility Start: 12-12-2024 End: 12-12-2024 Emergency department patient visit [facility] Start: 09-03-2024 End: 09-03-2024 [facility] Start: 09-03-2024 End: 09-03-2024 Office outpatient visit 25 minutes Tara Smith MD Work Phone: [facility] Comment on above: Greater trochanteric bursitis of right hip (Primary Dx); Fibromyalgia; Osteoarthritis of right AC (acromioclavicular) joint Start: 08-31-2024 End: 08-31-2024 [facility] Start: 08-11-2024 End: 08-11-2024 Emergency department patient visit [facility] Start: 03-11-2024 End: 03-11-2024 Patient encounter procedure Tara Smith MD Work Phone: [facility] Comment on above: Greater trochanteric bursitis of right hip (Primary Dx); Osteoarthritis of right AC (acromioclavicular) joint Start: 03-11-2024 End: 03-11-2024 [facility] Start: 03-05-2024 End: 03-05-2024 Office outpatient visit 25 minutes Tara Smith MD Work Phone: [facility] Comment on above: Fibromyalgia Start: 03-05-2024 End: 03-05-2024 ambulatory [facility] Start: 03-02-2024 End: 03-02-2024 Telephone encounter [facility] Start: 02-21-2024 End: 02-24-2024 Refill Tara Smith MD Work Phone: [facility] Comment on above: Fibromyalgia Start: 08-27-2023 End: 08-27-2023 Office outpatient visit 25 minutes Tara Smith MD Work Phone: [facility] Comment on above: Greater trochanteric bursitis of right hip (Primary Dx); Fibromyalgia; Osteoarthritis of right AC (acromioclavicular) joint Start: 08-27-2023 End: 08-27-2023 ambulatory TARA SMITH [facility] Start: 08-19-2023 End: 08-19-2023 ambulatory LAURI PHILIPPE Not Available Start: 05-29-2022 End: 05-29-[address] LANI PEACOCK Facility:[facility] Start: 07-02-2021 End: 07-02-[address] LANI PEACOCK Facility:[facility] Procedures Date Procedure Procedure Detail Performing Clinician Start: 09-05-2020 Colonoscopy Tara ashley MD Work Phone: Plan of Treatment Date Care Activity Detail Author Start: 09-05-2030 Screening for malignant neoplasm of colon Colonoscopy [facility] Start: 03-01-2027 DTaP,Tdap and Td Vaccines (2 - Td or Tdap) DTaP,Tdap and Td Vaccines (2 - Td or Tdap) [facility] Start: 08-11-2025 Adult BMI Screening Adult BMI Screening [facility] Start: 08-11-2025 Tobacco Screening Tobacco Screening [facility] Start: 03-11-2025 Adult BMI Screening Adult BMI Screening [facility] Start: 03-05-2025 Adult BMI Screening Adult BMI Screening [facility] Start: 03-05-2025 Tobacco Screening Tobacco Screening [facility] Start: 03-04-2025 End: 03-04-2025 Patient encounter procedure 03/04/2025 11:30 AM EDT Office Visit [facility] [address] [place] [address] Tara Smith MD [address] [address] [facility] Start: 01-25-2025 Influenza vaccination Influenza Vaccine [facility] Start: 09-03-2024 End: 09-03-2024 Patient encounter procedure 09/03/2024 10:00 AM EDT Office Visit [facility] [address] [place] [address] Tara Smith MD [address] [address] [facility] Start: 08-26-2024 Adult BMI Screening Adult BMI Screening [facility] Start: 03-11-2024 End: 03-11-2024 Patient encounter procedure 03/11/2024 1:00 PM EDT Procedure visit [facility] [address] [address] Tara Smith MD [address] [address] [facility] Start: 03-05-2024 End: 03-05-2024 Patient encounter procedure 03/05/2024 9:15 AM EDT Office Visit [facility] [address] [facility] [address] [place] [address] Tara Smith MD [address] [address] [facility] Start: 01-26-2024 Influenza vaccination Influenza Vaccine [facility] Start: 09-22-2023 Tobacco Screening Tobacco Screening [facility] Start: 2020 Administration of varicella zoster vaccine Zoster (Shingles) Vaccine (1 of 2) [facility] Start: 1988 Adult BMI Follow Up Plan Adult BMI Follow Up Plan [facility] Start: 1982 Depression Screening Depression Screening [facility] Immunizations Immunization Date Immunization Notes Care Provider Jeremy [facility] 03-23-2024 influenza virus vaccine, unspecified formulation Apple James [facility] 04-22-2023 influenza virus vaccine, unspecified formulation Tara Smith MD Work Phone: [facility] Payers Date Payer Category Payer Medicare HU[employer]NA MEDICARE HU[employer] MEDICARE [place] RES[place] [id number] 2023-Present [phone] [address] [place] [id number] [id number] 2023 Medicare O [employer]NA MEDICARE [id number] 2023 Medicare [id number] 1970 Unknown [id number] 1970 Unknown [id number] 1970 Unknown [id number] 1970 Unknown [id number] 1970 Unknown [id number] 1970 Unknown [id number] 1970 Unknown [id number] 1970 Unknown [id number] 1970 Unknown [id number] 1959 Unknown [id number] Social History Date Type Detail Facility Start: 07-08-2021 Tobacco smoking stat [facility] Ex-smoker [facility] History of tobacco use Current smoker [facility] History of tobacco use Cigarette Smoker P [facility] Start: 07-07-2020 End: 07-08-2021 Cigarettes smoked current (pack per day) - Reported 0.5 [facility] Start: 07-08-2021 Tobacco use and exposure Smokeless tobacco non-user [facility] Start: 09-21-2022 End: 08-11-2024 Alcohol intake Current drinker of alcohol (finding) [facility] Start: 07-07-2020 End: 09-21-2022 Tobacco use panel [facility] Childcare Unknown [facility] Start: 09-05-2020 Tobacco Comment quitting smoking [facility] Start: 08-15-2020 Alcohol Comment social [facility] Start: 1970 Sex Assigned At Not on file P [facility] Start: 12-30-2014 Sex Female (finding) [facility] Clinical Notes 08-27-2023 to 09-03-2024 Tara Smith MD - 09/03/2024 10:00 AM Annie Smith MD - 09/03/2024 10:00 AM EDTTelephone Encounter - Apple James CMA - 08/31/2024 2:50 PM Annie Smith MD - 03/11/2024 1:00 PM EDT Note Date & Type Note Facility 09-03-2024 History of Presen t illness Narrative Images from the original note were not included. [address] [facility] [address] Date of Service: 09/03/2024 Subjective: Sara Sandoval is a 54 y.o. female who presents today for evaluation fibromyalgia. Patient is seen at the request of Ashley Mane MD. This is a follow-up visit with this patient who is 54-year-old female patient presenting today as an established patient for follow-up of fibromyalgia, bursitis, osteoarthritis history of rheumatoid arthritis, low back pain was seen 1st time September 12, 2020 last time the clinic 03/05/2024 Patient's history dates back to 2019 when [...] seen on March 03, 2019 by a college recruiter at [facility] referred from PCP with history of swelling of the MCPs and morning stiffness and positive rheumatoid factor, was started on methotrexate for highly suspicious rheumatoid based on history above physical examination by Rheumatology that time did not revealed swelling of joints but mild tender MCPs, [facility] recru[facility] was June 26, 2019 that the time since she did not demonstrate evidence of synovitis but she had trochanteric bursitis for which she was given steroid injection Lab tests done at [facility] February 2019 CCP negative, sed rate normal, [...] serum creatinine normal and CBC was normal Patient had injection both Right trochanteric bursa and right shoulder AC joint on March 11, 2024 Currently on amitriptyline, nabumetone and methocarbamol At this point patient said that [...] mcg total) by mouth in the morning. [id number] 18-400-80 mg-mcg-mcg tablet Take by mouth. ondansetron ODT (ZOFRAN ODT) 4 mg disintegrating tablet Dissolve 1 tablet (4 mg total) on tongue 3 (three) times a day as needed for nausea for up to 3 doses. 3 tablet 0 promethazine (PHENERGAN) 25 mg tablet [...] for pain as needed 90 tablet 3 Current Facility-Administered Medications Medication Dose Route Frequency Provider Last Rate Last Admin triamcinolone acetonide (KENALOG-40) injection 40 mg 40 mg intra-articular Once Physical Exam: Physical Exam Vitals and nursing [...] Tender (MISTRY-28): -- Swollen (MISTRY-28): -- BP 99/52 Resp 18 Ht 170.2 cm (5' 7.01 ) Wt 86.6 kg (191 lb) BMI 29.91 kg/m : reviewed Labs and Imaging: reviewed and discussed with the patient during the visit.I Lab Results Component Value Date WBC 3.5 (L) 08/11/2024 HGB 14.7 08/11/2024 HCT 42.7 08/11/2024 MCV 86 08/11/2024 CRP 0.3 09/13/2020 GFR >60 07/08/2021 GFR >60 07/08/2021 AST 22 09/21/2022 AST 16 02/17/2020 Imaging: Assessment and Plan: Sara Sandoval is a 54 y.o. female patient with: 1. Fibromyalgia - [...] as needed Dispense: 90 tablet; Refill: 3 2. Greater trochanteric bursitis of right hip - lidocaine (XYLOCAINE) 10 mg/mL (1 %) injection 40 mg - triamcinolone acetonide (KENALOG-40) injection 40 mg 3. Osteoarthritis of right AC (acromioclavicular) joint - lidocaine (XYLOCAINE) 10 mg/mL (1 %) injection 40 mg - triamcinolone acetonide (KENALOG-40) injection 40 mg At this point main issue is pain right trochanteric bursa. And right AC joint I offered patient steroid injection and she agreed Procedure :under sterile condition right AC joint and right greater trochanteric bursa each injected with lidocaine and triamcinolone with immediate relief of pain. No immediate complications Return to clinic 6 months This note was created with the assistance of a speech recognition program. While intending to generate a timely document that accurately reflects the content of the visit, no guarantee can be provided that every grammatical or spelling mistake has been or will be identified or corrected. Thank you for your understanding. [facility] Dr. Tara Smith MD [address] [facility] [address], [address] [place] [address] Office: [phone] Rheumatology Procedure Site: Right trochanteric bursa and right shoulder AC joint Date/Time: 0:08 AM Performed by: Tara Smith Authorized by: [...] during the procedure documented in this encounter [facility] 08-31-2024 Miscellaneous Notes Formattin g of this note might be different from the original. Called spoke with Sara advised she is out of network and will be billed for the visit on 09/03 in [place]. Pt understood and was aware. documented in this encounter [facility] 08-31-2024 Telephone encount er Note Called spoke with Sara advised she is out of network and will be billed for the visit on 09/03 in [place]. Pt understood and was aware. [facility] 03-11-2024 History of Presen t illness Narrative [...] during the procedure documented in this encounter [facility] 03-05-2024 History of Presen t illness Narrative Images from the original note were not included. [address] [facility] [address] [facility] [address] Date of Service: 03/05/2024 Subjective: Sara Sandoval is a 53 y.o. female who presents [...] seen on March 03, 2019 by a college recruiter at [facility] referred from PCP with history of swelling of the MCPs and morning stiffness and positive rheumatoid factor, was started on methotrexate for highly suspicious rheumatoid based on history above physical examination by Rheumatology that time did not revealed swelling of joints but mild tender MCPs, last time seen by [facility] recruiter was June 26, 2019 that the time since she did not demonstrate evidence of synovitis but she had trochanteric bursitis for which she was given steroid injection Lab tests done at [facility] February 2019 CCP negative, sed rate normal, [...] mcg total) by mouth in the morning. [id number] 18-400-80 mg-mcg-mcg tablet Take by mouth. ondansetron [...] 16 02/17/2020 Imaging: Assessment and Plan: Sara Sandoval is a 53 y.o. female patient with: [...] patient to come to our office in [place] she has to have it injected Return to clinic 6 months This note was created with the assistance of a speech recognition program. While intending to generate a timely document that accurately reflects the content of the visit, no guarantee can be provided that every grammatical or spelling mistake has been or will be identified or corrected. Thank you for your understanding. [facility] Dr. aTra Smith MD [address] [place] [address], [address] [place] [address] Office: [phone] documented in this encounter [facility] 03-02-2024 Miscellaneous Notes Formattin g of this note might be different from the original. Appt schedule for 03/05 ([place]) . Courtesy call to patient informed there insurance out of network and will have to pay out of pocket Pt understood. documented in this encounter [facility] 03-02-2024 Telephone encount er Note Appt schedule for 03/05 ([place]) . Courtesy call to patient informed there insurance out of network and will have to pay out of pocket Pt understood. [facility] 04-02-2024 History of Presen t illness Narrative Images from the original note were not included. [address] [address] Date of Service: 08/27/2023 Subjective: Sara Sandoval is a 53 y.o. female who presents [...] clinic 08/02/2022 Patient's history dates back to 2018 when she started having joints pain started [...] seen on March 03, 2019 by a college recruiter at [facility] referred from PCP with history of swelling of the MCPs and morning stiffness and positive rheumatoid factor, was started on methotrexate for highly suspicious rheumatoid based on history above physical examination by Rheumatology that time did not revealed swelling of joints but mild tender MCPs, last time seen by [facility] recruiter was June 26, 2019 that the time since she did not demonstrate evidence of synovitis but she had trochanteric bursitis for which she was given steroid injection Lab tests done at [facility] February 2019 CCP negative, sed rate normal, [...] mcg total) by mouth in the morning. [id number] 18-400-80 mg-mcg-mcg tablet Take by mouth. ondansetron [...] 16 02/17/2020 Imaging: Assessment and Plan: Sara Sandoval is a 53 y.o. female patient with: [...] or corrected. Thank you for your understanding. [facility] [place] [address] [place] [address] [address] [place] [address] Office: [phone] Rheumatology Procedure Site: right trochanteric bursitis and [...] and anterior Lidocaine HCL 1% amount (ml): 4/2 Triamcinolone amount (mg): 40 Patient tolerance: Patient tolerated the procedure well with no immediate complications Procedure was completed Vital signs stable during the procedure documented in this encounter [facility] Evaluation note Diagnosis Greater trochanteric bursitis of right hip- Primary Fibromyalgia Unspecified myalgia and myositis Osteoarthritis of right AC (acromioclavicular) joint [facility] Diagnosis Fibromyalgia Unspecified myalgia and myositis [facility] Diagnosis Fibromyalgia Unspecified myalgia and myositis [facility] Diagnosis Greater trochanteric bursitis of right hip- Primary Osteoarthritis of right AC (acromioclavicular) joint [facility] filedocumented in [facility] on filedocumented in this encounter [facility] filedocumented in this encounter [facility] on filedocumented in this encounter [facility] Summary Purpose Family History No [...] section and content) DATE CREATED AUTHOR 06/13/2021 [facility] DATE CREATED AUTHOR AUTHOR'S ORGANIZ ATION 05/29/2022 [facility] DATE CREATED AUTHOR AUTHOR'S ORGANIZ ATION 08/19/2023 [facility] EPIC DATE CREATED AUTHOR AUTHOR'S ORGANIZ ATION 02/09/2024 [facility] DATE CREATED AUTHOR AUTHOR'S ORGANIZ ATION 03/13/2024 [facility] DATE CREATED AUTHOR AUTHOR'S ORGANIZ ATION 12/15/2024 [facility] Care Teams (unrecognized sec tion and content) Loss Prevention Specialist Relationship Specialty Start Date End Date Ashley Mane MD [address] [place], [place] [phone] PCP - General Family Medicine 01/23/22 Loss Prevention Specialist Relationship Specialty Start Date End Date Ashley Mane MD [address] [place] [phone] PCP - General Family Medicine 01/23/22 Loss Prevention Specialist Relationship Specialty Start Date End Date Ashley Mane MD [address] [place] [phone] PCP - General Family Medicine 01/23/22 Loss Prevention Specialist Relationship Specialty Start Date End Date Ashley Mane MD [address] [place], [place] [phone] PCP - General Family Medicine 01/23/22 Loss Prevention Specialist Relationship Specialty Start Date End Date Ashley Mane MD [address] [place] [address] PCP - General Family Medicine 01/23/22 Loss Prevention Specialist Relationship Specialty Start Date End Date Ashley Mane MD [address] [place] [phone] PCP - General Family Medicine 08/11/24 Loss Prevention Specialist Relationship Specialty Start Date End Date Ashley Mane MD [address] [place] [address] PCP - General Family Medicine 08/11/24 Reason for Visit (unrecogniz ed section and content) Reason Comments Med Refill FOR RECORDS PERTAINING TO PATIENTS WHO ARE [...] BE BASED ON THE PRIMARY CLINICAL RECORDS. [employer] provides no warranty or guarantee of the accuracy or completeness of information in this document.
== END 2024-12-21 15:39 | disposition home or self-care (01) ==
LOC: LAB 15:39
PROVIDERS: PCP Family Medicine; Visit Provider Family Medicine
DX: R42 Dizziness and giddiness (principal)
CPT/HCPCS: 36415; 80048

== ENCOUNTER 2024-12-31 11:07 | Emergency (ER) | payer MEDICARE, MEDICAID, SELFPAY ==
--- OUTSIDE RECORDS SUMMARY | 2024-01-01 05:45 | XMS_ITS | Continuity of Care Document ---
Author [facility] [employer] [facility] Address [address] [place] [address] Phone Care Team Providers Care Plaster Form Maker Name Role Phone Cata Cabezas CNP Unavailable Unavailable Procedures Procedure Date OFFICE/OUTPATIENT VISIT, EST OFFICE/OUTPATIENT VISIT, EST POSTOP FOLLOW-UP VISIT VOID TICKET POSTOP FOLLOW-UP VISIT Sleeve Gastrectomy LAP SLEEVE GASTRECTOMY OFFICE/OUTPATIENT VISIT, EST PSYCH DIAGNOSTIC EVALUATION PSYCL/NRPSYC TST PHY/QHP [facility] PSYCL/NRPSYC TST PHY/QHP OFFICE/OUTPATIENT VISIT, [facility] Advance Directives Directive Yes / No Effective Date File Name No Information Encounters Encounter Description Practice Location Reason(s) For Visit Diagnoses Date Provider Providers Copied on Encounter OFFICE/OUTPATI ENT VISIT, [facility] [employer] [facility], [address] [place] [address], [id number], [place] tel:[phone] [facility] No Information Raulito Ivy. [address] [place] [address], [id number], [place]. tel:[phone] Referring Provider: Cata Cabezas, [address] [place] [address], [place], [address]. tel:[phone] OFFICE/OUTPATI ENT VISIT, [facility] [employer] [facility], [address] [place] [address], [id number], [place] tel:[phone] [facility] No Information Raulito Ivy. [address] [place] [address] [address], [place], [place], [id number], [place]. tel:[phone] Referring Provider: Cata Cabezas, [address] [place] [address] [address], [place], [address]. tel:[phone] [facility], [address] [place] [address] [address], [place], [id number], [place] tel:[phone] [facility] No Information Raulito Ivy. [address] [place] [address] [address], [place], [place], [id number], [place]. tel:[phone] Referring Provider: Cata Cabezas, [address] [place] [address] [address], [place], [address]. tel:[phone] [facility], [address] [place] [address] [address], [place], [place], [id number], [place] tel:[phone] [facility] No Information Svitlana Cardona. [address] [place] [address] [address], [place], [place], [id number], [place]. tel:[phone] Referring Provider: Brendan Corbin, [address] [place] [address] [address], [place], [address]. tel:[phone] [facility], [address] [place] [address] [address], [place], [place], [id number], [place] tel:[phone] [facility] No Information Raulito Ivy. [address] [place] [address] [address], [place], [place], [id number], [place]. tel:[phone] Referring Provider: Cata Cabezas, [address] [place] [address] [address], [place], [address]. tel:[phone] [facility], [address] [place] [address] [address], [place], [place], [id number], [place] tel:[phone] [place] [facility] No Information Raulito Cata. [address] [facility] [address], [place], [place], [id number], [place]. tel:[phone] Referring Provider: Catapurvi Cabezas, [address] [facility] [address], [place], [address]. tel:[phone] [facility], [address] [place] [address] [address], [place], [place], [id number], [place] tel:[phone] [facility] [facility] No Information Svitlana Cardona. [address] [facility] [address], [place], [place], [id number], [place]. tel:[phone] Referring Provider: Brendan Corbin, [facility] [address] [facility] [address], [place], [address]. tel:[phone] OFFICE/OUTPATI ENT VISIT, [facility] [employer] [facility], [address] [place] [address] [address], [place], [place], [id number], [place] tel:[phone] [facility] No Information Svitlana Cardona. [address] [place] [address] [address], [place], [place], [id number], [place]. tel:[phone] Referring Provider: Brendan Corbin, [address] [facility] [address], [place], [address]. tel:[phone] PSYCH DIAGNOSTIC EVALUATION [facility], [address] [place] [address] [address], [place], [place], [id number], [place] tel:[phone] [facility] No Information Danis Huston. [address] [place] [address] [address], [place], [place], [id number], [place]. tel:[phone] Referring Provider: Betzaida Moscoso, [address] [place] [address] [address], [place], [address]. tel:[phone] OFFICE/OUTPATI ENT VISIT, [facility] [employer] [facility], [address] [place] [address] [address], [place], [place], [id number], [place] tel:[phone] [facility] No Information Svitlana Cardona. [address] [facility] [address], [place], [place], [id number], [place]. tel:[phone] Referring Provider: Brendan Corbin, [address] [facility] [address], [place], [address]. tel:[phone] Family History Family Member Type Diagnosis Age At Onset No Information Payers Payer name Insurance type Covered alliance party ID Authorulyssesa rolan(s) Humana Choice And Gold Choice 16 [id number] Social History Type Description Quantity Date Captured Comments Sex Female Smoking Status No Information Chief Complaint And Reason For Visit No Information Reason For Referral Reason For Referral No Information History Of Present Illness Encounter Date Complaint History Of Prese nt Illness No Information Functional Status Date Functional Assessmen t No Information Instructions Date Instruction Additional Infor mation No Information Assessments Type Assessment Date No Information Patient Care Teams Name Effective Dates (start - stop) Status Members No Information
--- OUTSIDE RECORDS SUMMARY | 2024-12-21 09:15 | XMS_ITS ---
Author Organization [facility] [place] Address [address] [place] [address] Care Team Providers Care Drug Safety Specialist Name Role Phone Mane Silvia Primary Care Provider Allergies No Known Allergies REASON FOR VISIT ER follow up Medications Medication SIG (Take, Route, Frequency, Duration) Notes Start Date End Date Status Meclizine HCl 50 MG 1 tablet as needed Orally every 12 hrs from ER patient has not needed it Active ALPRAZolam 0.25 MG 1 tablet Orally Twice a day prn anxiety for 30 days 09/21/2024 Active Vitamin D Active Amitriptyline HCl 75 MG Oral for 90 Days Active Calcium Active Omeprazole 20 MG 1 capsule 30 minutes before morning meal Orally Once a day Active Ondansetron HCl 4 MG 1 tablet Orally q6 hrs PRN for 5 days 08/10/2024 Active Vitamin B1 Active Nabumetone 500 MG Oral for 90 Days Active Multivitamin Active Methocarbamol 500 MG Oral for 90 Days Active Citalopram Hydrobromide 40 MG TAKE 1 TABLET BY MOUTH DAILY for 90 days Active Levothyroxine Sodium 88 MCG TAKE 1 TABLET BY MOUTH EVERY MORNING ON AN EMPTY STOMACH for 90 days Active Social History Tobacco Use: Social History Observation Description Date Details (start date - stop date) Former Smoker NA - NA Tobacco Use/Smoking Question Answer Notes Patient is a former smoker How long has it been since you last smoked? 1-5 years Section Notes: Smoked 1ppd, for about 5 years QUIT SMOKING 06/18! Vital Signs Blood pressure systolic 126 mm Hg 12/22/19 25 Blood pressure diastolic 82 mm Hg 025 Heart Rate 65 /min 12/21/2024 Respiratory Rate 16 /min 12/21/2024 Height 68 in 12/21/2024 Weight 193.2 lbs 12/21/2024 BMI 29.37 kg/m2 12/21/2024 Oximetry 99 % 12/21/2024 Encounters Encounter Location Date Provider Diagnosis [facility] [address] [place] [address] 12/21/2024 Silvia Mane Acquired hypothyroid ism E03.9 ; Dizziness and giddiness R42 ; Rheumatoid arthritis, unspecified M06.9 ; Recurrent major depressive disorder, in full remission F33.42 ; Gastro-esophageal reflux disease without esophagitis K21.9 and Anxiety disorder, unspecified F41.9 Assessments Encounter Date Diagnosis (ICD Code) Assessment Notes Treatment Notes Treatment Clinical Notes Section Notes 12/21/2024 Acquired hypothyroidism (ICD-10 - E03.9) 12/21/2024 Dizziness and giddiness (ICD-10 - R42) 12/21/2024 Rheumatoid arthritis, unspecified (ICD-10 - M06.9) 12/21/2024 Recurrent major depressive disorder, in full remission (ICD-10 - F33.42) 12/21/2024 Gastro-esophageal reflux disease without esophagitis (ICD-10 - K21.9) 12/21/2024 Anxiety disorder, unspecified (ICD-10 - F41.9) Plan Of Treatment Pending Test Test Name Order Date BMP (BASIC MET PANEL) w/eGFR CKD-EPI Next Appt Details Provider Name:Silvia morel, 03/23/2025 09:30:00 AM, [address] [place], [address], Progress Notes * Wale SADNOVALOB:1970 ( 54 yo F)Acc No.[id number]:12/21/2024 UNLOCKED PROGRESS NOTE Progress Note Patient: Jose Juan EVEAnh DOS SANTOSne Provider: Jose Juan Mane MD :1970 A ge:54 Y S ex:Female Date:12/21/2024 Address:[address] [place], [place] [id number] Check In:12:59 PM ESTCheck O ut:02:47 PM EST Subjective: * Chief Complaints: * 1 . ER follow up. * HPI: G eneral: patient presents today for ER f/u- RM Had an episode of vertigo on 12/12 Has been noticing low BP lately, and was K low - drink more electrolytes!. * ROS: G eneral/Constitutional: Chills d enies. [...] P sychiatric: Depression d enies. A nxiety d enies. D ifficulty sleeping d enies. * Medical History: H /o Asthma, Hypothyroid, Depression/anxiety, Hyperlipidemia, Rheumatoid Arthritis, Fibromyalgia. * Surgical History: C section 10/26/98, Csection 06/25/03, Bilateral carpal tunnel- DR Mendoza , Cholecystectomy- Dr Wick , L Plantar Fascitis - Dr Wahl , Tonsils , Lt shoulder , Partial Hysterectomy 2009, Oophorectomies (bilat)- Dr Ko 2014, colonoscopy 08/15/20, Gastric Sleeve - Dr. Shane 12/31/22. * Family History: F ather: 75 yrs, of [place], diagnosed with Other malignant neoplasm of unspecified [...] years QUIT SMOKING 06/18!. * Medications: T aking ALPRAZolam 0.25 MG Tablet 1 tablet Orally Twice a day prn anxiety , Taking Amitriptyline HCl 75 MG Tablet Oral , Taking Calcium , Taking Citalopram Hydrobromide 40 MG Tablet TAKE 1 TABLET BY MOUTH DAILY , Taking Levothyroxine Sodium 88 MCG Tablet TAKE 1 TABLET BY MOUTH EVERY MORNING ON AN EMPTY STOMACH , Taking Meclizine HCl 50 MG Tablet 1 tablet as needed Orally every 12 hrs , Notes to Pharmacist: from ER patient has not needed it, Taking Methocarbamol 500 MG Tablet Oral , Taking Multivitamin , Taking Nabumetone 500 MG Tablet Oral , Taking Omeprazole 20 MG Capsule Delayed Release 1 capsule 30 minutes before morning meal Orally Once a day , Taking Ondansetron HCl 4 MG Tablet 1 tablet Orally q6 hrs PRN , Taking Vitamin B1 , Taking Vitamin D , Medication List reviewed and reconciled with the patient * Allergies: N .K.D.A. Objective: * Vitals: W t:193.2lbs, Ht: 68 in, BP:126/82mm Hg, HR:65/min, RR:16/min, BMI:29.37Index, Oxygen sat %:99%, Ht-cm: 172.72 cm, Wt-k.63 kg. * Examination: G eneral Examination: GENERAL APPEARANCE: [...] and affect appropriate. Assessment: * Assessment: 1. D izziness and giddiness - R42 (Primary) 2 . A cquired hypothyroidism - E03.9 3 . R heumatoid arthritis, unspecified - M06.9 4 . R ecurrent major depressive disorder, in full remission - F33.42 5 . G herbert-esophageal reflux disease without esophagitis - K21.9 6 . A nxiety disorder, unspecified - F41.9 Plan: * Treatment: * * Electronic signature of Eusebia Mane MD, [id number] on 12/31/2024 at 11:14 AM EDT Sign off status: Pending Visit Status: C HK (Check Out) * Provider: Jose Juan Mane MD Date: 0 12/21/2024 Generated for Liami luciano/Nuria/Abrahansmitting on: 0 12/31/2024 11:14 AM EDT History and Physical Notes * Examination Category Sub-Category Detail Notes Category Not [...]
--- OUTSIDE RECORDS SUMMARY | 2024-12-30 06:38 | XMS_ITS ---
Author Organization [facility] in [place] Address [address] [place] [address] Care Team Providers Care Supervisor Composing Room Name Role Phone Silvia Mane Primary Care Provider REASON FOR VISIT review labs Encounters Encounter Location Date Provider Diagnosis [facility] [address] [place] [address] 12/30/2024 Silvia Mane Plan Of Treatment Next Appt Details Provider Name:Silvia Garcia es, 03/23/2025 09:30:00 AM, [address] [place], [address], Progress Notes * Wale SANDOVALOB:1970 ( 54 yo F)Acc No.[id number]:12/30/2024 Patient: Jose Juan HIRSCH Sara :1970 A ge:54 Y S ex:Female Address:[address] [place] [address], [phone] * true * Date: Generated for Printi ng/Faxing/eTransmitting on: 0 12/31/2024 11:14 AM EDT
[2024-12-31 11:11] VITALS: BP 95/40; PULSE 68; TEMP 37.1; O2SAT 94; BMI 25.1
--- OUTSIDE RECORDS SUMMARY | 2024-12-31 11:15 | XMS_ITS | Encounter Summary ---
Author Organization [employer] [facility] Address [facility][id number] [address] [place] [address] Care Team Providers Care Blacksmith Assistant Name Role Phone Silvia Mane MD Primary Care Provider [phone] Reason for Visit * Reason Comments Med Refill Encounter Details Date Type Department Care Team ([facility] st Contact Info) Description 07/15/2021 Refill [facility] [address] [phone] Tara Smith MD [address] [address] Fibromyalgia Social History Tobacco Use Types Packs/Day [...] Rheumatology [address] [place] [address] Tara Smith MD 4082 [facility] [address] [place] [address] documented as of this encounter Visit Diagnoses [...] documented as of this encounter Care Teams Blacksmith Assistant Relationship Specialty Start Date End Date Silvia Mane MD [address] [place] [phone] PCP - General Family Medicine 08/11/24 documented as of this encounter
--- OUTSIDE RECORDS SUMMARY | 2024-12-31 11:15 | XMS_ITS | Encounter Summary ---
Author Organization [employer] [facility] [employer] Address [facility] [place]-[id number] [address] [place] [address] Care Team Providers Care Smoke Jumper Name Role Phone Silvia Mane MD Primary Care Provider [phone] Reason for Visit * Reason Comments Med Refill Encounter Details Date Type Department Care Team ([facility] st Contact Info) Description 01/18/2021 Refill [facility] [address] [phone] Tara Smith MD [address] [address] Fibromyalgia Social History Tobacco Use Types Packs/Day [...] Rheumatology [address] [place] [address] Tara Smith MD 3859 [facility] [address] [place] [address] documented as of this encounter Visit Diagnoses [...] documented as of this encounter Care Teams Smoke Jumper Relationship Specialty Start Date End Date Silvia Mane MD [address] [place] [phone] PCP - General Family Medicine 08/11/24 documented as of this encounter
--- OUTSIDE RECORDS SUMMARY | 2024-12-31 11:15 | XMS_ITS | Encounter Summary ---
Author Organization [employer] [facility] [employer] Address [facility] [id number] [address] [place] [address] Care Team Providers Care Game Tester Name Role Phone Silvia Mane MD Primary Care Provider [phone] Reason for Visit * Reason Comments Med Refill Encounter Details Date Type Department Care Team ([facility] st Contact Info) Description 03/17/2023 Refill [facility] [address] [place] [phone] Tara Smith MD [address] [address] Fibromyalgia Social History Tobacco Use Types Packs/Day [...] Rheumatology [address] [place] [address] Tara Smith MD 5700 [facility] [address] [place] [address] documented as of this encounter Visit Diagnoses Diagnosis Fibromyalgia Unspecified myalgia and myositis documented in this encounter Additional Health Concerns Assessment Noted Time A Body Mass Index follow-up plan has been documented for the patient 09/12/2020 9:03 AM EDT documented as of this encounter Care Teams Game Tester Relationship Specialty Start Date End Date Silvia Mane MD [address] [place] [phone] PCP - General Family Medicine 08/11/24 documented as of this encounter
--- OUTSIDE RECORDS SUMMARY | 2024-12-31 11:15 | XMS_ITS | Clinical Summary ---
Author Organization [facility] Address [address] [place] [address] Care Team Providers Care Pipe Smoking Machine Operator Name Role Phone Silvia Mane MD Unavailable [...] Narrative 09/05/2020 12:00 PM EDT PERFORMED AT [facility] LOCATION:[id number] Procedure Note CONVERSION, GENERIC - 10/10/2022 PERFORMED AT [facility] LOCATION:[id number] Aliyah Wade MD ENDOSCOPY PROCEDURE ORDERABLE S Final Result * Bilateral screening mammogram with tomosynthesis (08/01/2020) Anatomical Region Laterality Modality Breast Bilateral Mammography Narrative 08/01/2020 12:00 AM EST PERFORMED AT [facility] LOCATION:[place] [address] Patient: LORI Gonsalez. Exam Date: 08/01/2020 : 1970 Gender:F Ordering : DR TYRONE JACOME . Admission #: [id number] Family : DR ALIYAH WADE M.D. Order #: [id number] CLICK HERE TO VIEW EXAM RADIOLOGY REPORT [...] Treatments None Family Cancers None LOCATION: [facility] BREAST COMPOSITION: Scattered areas fibroglandular density. FINDINGS: [...] Note CONVERSION, GENERIC - 11/30/2022 PERFORMED AT [facility] LOCATION:[place] [address] Patient: LORI Gonsalez. Exam Date: 08/01/2020 : 1970 Gender:F Ordering : DR TYRONE JACOME . Admission #: [id number] Family : DR ALIYAH WADE M.D. Order #: [id number] CLICK HERE TO VIEW EXAM RADIOLOGY REPORT [...] Treatments None Family Cancers None LOCATION: [facility] BREAST COMPOSITION: Scattered areas fibroglandular density. FINDINGS: [...] Most Recently Relevant to Health Maintenance Insurance [facility] Care Teams Pipe Smoking Machine Operator Relationship Specialty Start Date End Date Silvia Mane MD [address] [place] [phone] Referring Physician Family Medicine 08/19/23
--- OUTSIDE RECORDS SUMMARY | 2024-12-31 11:15 | XMS_ITS | Encounter Summary ---
Author Organization [email or web address] [facility] tem Address [facility][id number] [address] [place] [address] Care Team Providers Care Hair Dresser Name Role Phone Silvia Mane MD Primary Care Provider [phone] Encounter Details Date Type Department Care Team ([facility] Contact Info) Description 01/31/2022 Telephone [facility] [address] [phone] Apple James, CALENDER MACHINE OPERATOR HELPER Social History Tobacco Use Types Packs/Day [...] Upcoming Encounters Date Type Department Care Team ([facility] Contact Info) Description 03/04/2025 11:30 AM EDT Office Visit [facility] [address] [place] [address] Tara Smith MD [address] [address] documented as of this encounter Visit Diagnoses [...] documented as of this encounter Care Teams Hair Dresser Relationship Specialty Start Date End Date Silvia Mane MD [address] [place] [address] PCP - General Family Medicine 08/11/24 documented as of this encounter
--- OUTSIDE RECORDS SUMMARY | 2024-12-31 11:15 | XMS_ITS | Encounter Summary ---
Author Organization [facility] Address [facility][id number] [address] [place] [address] Care Team Providers Care Grape Cutter Name Role Phone Silvia Mane MD Primary Care Provider [phone] Reason for Visit * Reason Comments Med Refill Encounter Details Date Type Department Care Team ([facility] st Contact Info) Description 03/03/2024 Refill [facility] [address] [phone] Tara Smith MD [address] [address] Fibromyalgia Social History Tobacco Use Types Packs/Day [...] Rheumatology [address] [place] [address] Tara Smith MD 5700 [facility] [address] [place] [address] documented as of this encounter Visit Diagnoses Diagnosis Fibromyalgia Unspecified myalgia and myositis documented in this encounter Additional Health Concerns Assessment Noted Time A Body Mass Index follow-up plan has been documented for the patient 09/12/2020 9:03 AM EDT documented as of this encounter Care Teams Grape Cutter Relationship Specialty Start Date End Date Silvia Mane MD [address] [place] [phone] PCP - General Family Medicine 08/11/24 documented as of this encounter
--- OUTSIDE RECORDS SUMMARY | 2024-12-31 11:15 | XMS_ITS | Encounter Summary ---
Author Organization [employer] Address [id number] [address] [place] [address] Care Team Providers Care Energy Advisor Name Role Phone Silvia Mane MD Primary Care Provider [phone] Reason for Visit * Reason Comments Med Refill Encounter Details Date Type Department Care Team ([facility] st Contact Info) Description 01/20/2021 Refill [facility] [address] [phone] Tara Smith MD [address] [address] Fibromyalgia Social History Tobacco Use Types Packs/Day [...] Rheumatology [address] [place] [address] Tara Smith MD 5353 [facility] [address] [place] [address] documented as of this encounter Visit Diagnoses [...] documented as of this encounter Care Teams Energy Advisor Relationship Specialty Start Date End Date Silvia Mane MD [address] [place] [phone] PCP - General Family Medicine 08/11/24 documented as of this encounter
--- OUTSIDE RECORDS SUMMARY | 2024-12-31 11:15 | XMS_ITS | Patient Health Record ---
Author Organization [facility] [place] Address [address] [place] [address] Care Team Providers Care Personnel Associate Name Role Phone Silvia Mane Primary Care Provider [phone] Allergies No Known Allergies Results Component Value Reference Range Notes PROF CHEM 8 (BAS METB) (Not yet reviewed by provider) Interpretation: Performing Lab: Notes/Report: [facility] , Sodium 142 136-145 mmol/L Potassium 3.8 3.5-5.1 mmol/L Chloride 105 98-107 mmol/L Carbon Dioxide 28.8 21.0-32.0 mmol/L Anion Gap 12.0 Glucose 92 74-106 mg/dL Blood Urea Nitrogen 15.0 7.0-18.0 mg/dL Creatinine 0.69 0.55-1.02 mg/dL Estimated GFR ( Klaudia >60 >=60 mL/min/1.73m 2 Estimated GFR (Non- Mee >60 >=60 mL/min/1.73m 2 BUN Creatinine Ratio 21.7 Calcium 8.8 8.5-10.1 mg/dL Performing Lab: see note ML - [facility] LB T4 FREE and TSH Reviewed date:11/05/2024 12:44:29 PM Interpretation: Performing Lab:[facility], [address] [place], [address] [phone] Notes/Report: FACILITY: DR MANE - OFFICE [id number] T4 - FREE 1.02 (0.64 - 1.79) UG/DL hTSH 1.82 (0.470 - 4.680) mIU/L Reason For Referral No Information Medications Medication SIG (Take, Route, Frequency, Duration) Notes Start Date End Date Status Azithromycin 250 MG as directed Orally daily for 5 days 2 pills the first day and 1 pill the remaining 4 days 12/29/2024 Active Methocarbamol 500 MG Oral for 90 [...] Administration Date Status Comme nts Flu, Flucelvax (00717) 2 yrs +, single-dose syringe (5367-5474) Unknown 03/21/2022 Administered Flu, FluLaval (04541) 6 mos and older, single-dose syringe Unknown [...] No Points 0 Interpretation Negative Section Notes: Smoked 1ppd, for about 5 years QUIT SMOKING 06/18! SMoking 1ppd, for about 5 ye ars [...] Problem Status W/U Status Risk Notes Problem 54231029 Essential (primary) hypertension (I10) Active confirmed Problem 553251693 Gastro-esophagea l reflux disease without esophagitis (K21.9) Active confirmed Problem 899427693 Mixed hyperlipidemia (E78.2) Active confirmed Problem 55666342 Anxiety disorder , unspecified (F41.9) Active confirmed Problem 38873477 Rheumatoid arthritis, unspecified (M06.9) Active confirmed Problem 620867350 Acquired hypothyroidism (E03.9) Active confirmed Problem 01737055 Recurrent major depressive disorder, in full remission (F33.42) Active confirmed Problem 924790168 Mild persistent asthma, unspecified whether complicated (J45.30) Active confirmed Problem 788946133599522 Acquired absence of cervix (Z90.710) Active confirmed Vital Signs Heart Rate 65 /min 12/21/2024 Respiratory Rate 16 /min 12/21/2024 Blood pressure diastolic 82 mm Hg 12/21/2024 Oximetry 99 % 12/21/2024 Height 68 in 12/21/2024 Blood pressure systolic 126 mm Hg 12/21/2024 Weight 193.2 lbs 12/21/2024 BMI 29.37 kg/m2 12/21/2024 Encounters Encounter Location Date Provider Diagnosis [facility] [address] [place] [address] 08/24/2024 Formerly [facility] [address] [place] [address] 12/29/2024 Formerly [facility] [address] [place] [address] 12/30/2024 Formerly [facility] [address] [place] [address] 03/11/2024 Formerly [facility] [address] [place] [address] 03/17/2024 Formerly [facility] [address] [place] [address] 05/25/2024 Formerly [facility] [address] [place] [address] 08/10/2024 Formerly [facility] [address] [place] [address] 12/21/2024 Silvia Maen Acquired hypothyroid ism E03.9 ; Dizziness and giddiness R42 ; Rheumatoid arthritis, unspecified M06.9 ; Recurrent major depressive disorder, in full remission F33.42 ; Gastro-esophageal reflux disease without esophagitis K21.9 and Anxiety disorder, unspecified F41.9 [address] [place] [place] [address] 01/20/2024 Silvia Burnettnes Acquired hypothyroid ism E03.9 ; Rheumatoid arthritis, unspecified M06.9 ; Recurrent major depressive disorder, in full remission F33.42 ; Gastro-esophageal reflux disease without esophagitis K21.9 and Encounter for general adult medical examination without abnormal findings Z00.00 [address] [place] [address] 09/21/2024 Silvia Mane Acquired hypothyroid ism E03.9 [...] - M06.9) Continue to follow up with aluminum siding applicator as directed 09/21/2024 Acquired hypothyroidism (ICD-10 - [...] MAMM SCREEN BILAT MIGUEL ANGEL 3D* 05/08/2022 PROF CHEM 8 (BAS METB) 12/21/2024 BMP (BASIC MET PANEL) w/eGFR CKD-EPI Next Appt Details Provider Name:Silvia morel, 03/23/2025 09:30:00 AM, [address] [place], [address], Insurance Providers Payer Name Payer Address Payer Phone Subscriber Number Group Number Insured Name Patient Relationship to Insured Coverage Start Date Coverage End Date [employer] ADV PLAN [address] [address] [place] [address] [id number] Sara Verduzco Self - patient is the insured 3 [employer] [place] [address] [address] [place] [address] [id number] Sara Verduzco Self - patient is the insured 3 10/20/202 3 Medical (General) History Medical History History ICD Code H/o Asthma Hypothyroid Depression/anxiety Hyperlipidemia Rheumatoid Arthritis Fibromyalgia Surgical History Surgery Date(Month/Year) colonoscopy 08/15/20 Partial Hysterectomy 2009 Lt shoulder Tonsils L Plantar Fascitis - Dr Wahl Cholecystectomy- Dr Wick Bilateral carpal tunnel- DR Mendoza Csection 06/25/03 C section 10/26/98 Oophorectomies (bilat)- Dr Ko 2014 Gastric Sleeve - Dr. Shane 12/31/22
--- OUTSIDE RECORDS SUMMARY | 2024-12-31 11:15 | XMS_ITS | Encounter Summary ---
Author Organization [facility] [facility] Address [facility] [place]-[id number] [address] [place] [address] Care Team Providers Care Communication Studies Professor Name Role Phone Silvia Mane MD Primary Care Provider [phone] Encounter Details Date Type Department Care Team (Late st Contact Info) Description 01/24/2022 Telephone [facility] [address] [phone] Apple James CMA Social History Tobacco Use [...] denial for metaxalone 800 mg tablets by [facility] in accordance with member's Drug coverage. Preferred [...] Office Visit [facility] [address] [facility] [address] [place] [address] Tara Smith MD [address] [address] documented as of this encounter Visit Diagnoses [...] documented as of this encounter Care Teams Communication Studies Professor Relationship Specialty Start Date End Date Silvia Mane MD [address] [place] [phone] PCP - General Family Medicine 08/11/24 documented as of this encounter
--- OUTSIDE RECORDS SUMMARY | 2024-12-31 11:15 | XMS_ITS | Encounter Summary ---
Author Organization [employer] Address [facility]-[id number] [address] [place] [address] Care Team Providers Care Green Chain Puller Name Role Phone Silvia Mane MD Primary Care Provider [phone] Reason for Visit * Reason Comments Med Refill Encounter Details Date Type Department Care Team ([facility] st Contact Info) Description 04/13/2023 Refill [facility] [address] [place] [address] Tara Smith MD [address] [address] Fibromyalgia Social History Tobacco Use Types Packs/Day [...] Rheumatology [address] [place] [address] Tara Smith MD 5700 [facility] [address] [place] [address] documented as of this encounter Visit Diagnoses Diagnosis Fibromyalgia Unspecified myalgia and myositis documented in this encounter Additional Health Concerns Assessment Noted Time A Body Mass Index follow-up plan has been documented for the patient 09/12/2020 9:03 AM EDT documented as of this encounter Care Teams Green Chain Puller Relationship Specialty Start Date End Date Silvia Mane MD [address] [place] [phone] PCP - General Family Medicine 08/11/24 documented as of this encounter
--- OUTSIDE RECORDS SUMMARY | 2024-12-31 11:15 | XMS_ITS | Encounter Summary ---
Author Organization [facility] tem Address [id number] [address] [place] [address] Care Team Providers Care Client Care Specialist Name Role Phone Silvia Mane MD Primary Care Provider [phone] Encounter Details Date Type Department Care Team ([facility] st Contact Info) Description 12/19/2020 [facility]phone [facility] [address] [address] Apple James CMA Social History Tobacco Use [...] Upcoming Encounters Date Type Department Care Team ([facility] st Contact Info) Description 03/04/2025 11:30 AM EDT Office Visit [facility] [address] [facility] [address] [place] [address] Tara Smith MD [address] [address] documented as of this encounter [...] documented as of this encounter Care Teams Client Care Specialist Relationship Specialty Start Date End Date Silvia Mane MD [address] [place] [phone] PCP - General Family Medicine 08/11/24 documented as of this encounter
--- OUTSIDE RECORDS SUMMARY | 2024-12-31 11:15 | XMS_ITS | Encounter Summary ---
Author Organization [facility] Address [facility] [place]-[id number] [address] [place] [address] Care Team Providers Care Storage Wharfage Clerk Name Role Phone Silvia Mane MD Primary Care Provider [phone] Reason for Visit * Reason Comments Med Refill Encounter Details Date Type Department Care Team ([facility] st Contact Info) Description 02/29/2024 Refill [facility] [address] [phone] Tara Smith MD [address] [address] Fibromyalgia Social History Tobacco Use Types Packs/Day [...] Rheumatology [address] [place] [address] Tara Smith MD 5700 [facility] [address] [place] [address] documented as of this encounter Visit Diagnoses Diagnosis Fibromyalgia Unspecified myalgia and myositis documented in this encounter Additional Health Concerns Assessment Noted Time A Body Mass Index follow-up plan has been documented for the patient 09/12/2020 9:03 AM EDT documented as of this encounter Care Teams Storage Wharfage Clerk Relationship Specialty Start Date End Date Silvia Mane MD [address] [place] [phone] PCP - General Family Medicine 08/11/24 documented as of this encounter
--- OUTSIDE RECORDS SUMMARY | 2024-12-31 11:15 | XMS_ITS | Clinical Summary ---
Author Organization [facility] Address [address] [place] [address] Care Team Providers Care Landscape And Yardwork Laborer Name Role Phone Mary Gagnon MD Primary Care Provider [phone] Medications Albuterol Sulfate 1.25 mg/3 mL nebulizer [...] N ot on file 05/05/2020 Data from: https://[email or web address]/. Last address used for calculation Not on [...] Additional history exists Lipid Screening 01/17/2024 01/16/2019 Influenza Vaccine (#1) 2025 DTaP,Tdap,Td Vaccine (2 [...] Total Negative Negative 03/03/2019 6:09 PM EDT [facility] Hep C Antibody IA Negative Negative 03/03/2019 6:10 PM EDT [facility] HBsAg Negative Negative 03/03/2019 6:10 PM EDT [facility] Hep B Surface Ab, Qual Positive(A) Negative 03/03/2019 6:10 PM EDT [facility] Comment: These results are consistent with previous exposure and/or immunity to the hepatitis B virus antigen. Blood specimen (specimen) BLOOD SPECIMEN / Unknown 03/03/2019 11:40 AM EDT 03/03/2019 11:43 AM EDT Carlos Eldridge MD LABORATORY Final Result [facility] [address] [facility] [place] [address] [facility] [address] [place] [address] from Last 3 Months or Most Recently Relevant to Health Maintenance Insurance [employer] [place] Care Teams Landscape And Yardwork Laborer Relationship Specialty Start Date End Date Mary Gagnon MD [address] [place] [address] PCP - General Family Medicine 02/11/19
--- OUTSIDE RECORDS SUMMARY | 2024-12-31 11:15 | XMS_ITS | Encounter Summary ---
Author Organization [facility] tem Address [id number] [address] [place] [address] Care Team Providers Care Tipple Oiler Name Role Phone Silvia Mane MD Primary Care Provider [phone] Encounter Details Date Type Department Care Team ([facility] st Contact Info) Description 12/29/2020 [facility]phone [facility] Rhe[facility]ology [address] [phone] Apple James CMA Social History Tobacco Use [...] Rheumatology [address] [place] [address] Tara Smith MD [address] [facility] [address] [place] [address] documented as of this encounter Visit Diagnoses [...] documented as of this encounter Care Teams Tipple Oiler Relationship Specialty Start Date End Date Silvia Mane MD [address] [place] [phone] PCP - General Family Medicine 08/11/24 documented as of this encounter
--- OUTSIDE RECORDS SUMMARY | 2024-12-31 11:15 | XMS_ITS | Clinical Summary ---
Author Organization [employer] tem Address [id number] [address] [place] [address] Care Team Providers Care Business Risk Consultant Name Role Phone Silvia Mane MD Primary Care Provider [phone] Allergies No known active allergies Medications levothyroxine (SYNTHROID, LEVOTHROID) 88 MCG tablet Take 1 tablet (88 mcg total) by mouth in the morning. Active [id number]-brse -[id number]#[id number] mg-mcg-mcg tablet Take by mouth. [...] EDT - 12/12/2024 5:39 PM EDT Emergency [facility] - Emergency [address] [place] [id number] Deric Herman DO Vertigo (Primary Dx); Hypokalemia [...] Visit [facility] [address] [facility] [address] [place] [address] Tara Smith MD [address] [facility] [address] [place] [address] Health Maintenance Due Date [...] THROMBOLYTIC DECISION Routine 12/12/2024 3:29 PM EDT ECG 12-LEAD STAT 12/12/2024 3:17 PM EDT from Last 3 Months Results * (ABNORMAL) POCT Nursing Urine Macroscopic UA (12/12/2024 4:50 PM EDT) POC Urine Specific Whiting 1.020 1.010, 1.015, 1.020, 1.025 12/12/2024 4:42 PM EDT [facility] POC Urine Leukocyte Esterase Negative Negative 12/12/2024 4:42 PM EDT [facility] POC Urine Nitrite Negative Negative 12/12/2024 4:42 PM EDT [facility] POC Urine pH 8.5 5.0, 6.0, 6.5, 7.0, 7.5, 8.0, 8.5, 5.5 12/12/2024 4:42 PM EDT [facility] POC Urine Protein Negative Negative 12/12/2024 4:42 PM EDT [facility] POC Urine Glucose Negative Negative 12/12/2024 4:42 PM EDT [facility] POC Urine Ketones 15 mg/dL(A) Negative 12/12/2024 4:42 PM EDT [facility] POC Urine Urobilinogen 0.2 E.U./dL 12/12/2024 4:42 PM EDT [facility] POC Urine Bilirubin Negative Negative 12/12/2024 4:42 PM EDT [facility] POC Urine Blood/HGB Negative Negative 12/12/2024 4:42 PM EDT [facility] Urine 12/12/2024 4:50 PM EDT 12/12/2024 4:42 PM EDT us Deric Herman DO POINT OF CARE TEST ORDERABLE S Final Result [address] [place] [address], [place] * Troponin I, High Sensitivity 1 Hour (12/12/2024 4:49 PM EDT) TROPONIN I, HIGH SENSITIVITY 3 <16 ng/L 12/12/2024 5:34 PM EDT [facility] Blood Venous blood / Unknown Venipuncture / Unknown 12/12/2024 4:49 PM EDT 12/12/2024 4:57 PM EDT us Leeanna Ardon NICKER-INSTRUCTOR PILOT LAB BLOOD ORDERABLES Final Result Performing Organization Address City/[facility]/ZIP Co de Phone Number [address] [place] [address], [place] * Extra Urine Robbins (12/12/2024 4:37 PM EDT) Extra Tube Auto Resulted 12/12/2024 6:01 PM EDT [facility] Urine Urine specimen collection, clean catch / Unknown 12/12/2024 4:37 PM EDT 12/12/2024 5:15 PM EDT us Leeanna Ardon NICKER-INSTRUCTOR PILOT URINE ORDERABLES Veronica l Result Performing Organization Address City/[facility]/ZIP Co de Phone Number [address] [place] [address], [place] * Extra Urine Culture (12/12/2024 4:37 PM EDT) Extra Tube Auto Resulted 12/12/2024 6:01 PM EDT [facility] Urine Urine specimen collection, clean catch / Unknown 12/12/2024 4:37 PM EDT 12/12/2024 5:15 PM EDT us Leeanna Ardon NICKER-INSTRUCTOR PILOT URINE ORDERABLES Veronica l Result Performing Organization Address City/[facility] Co de Phone Number [address] [place] [address], [place] * Extra Urine (12/12/2024 4:37 PM EDT) Extra Tube Auto Resulted 12/12/2024 6:01 PM EDT [facility] Urine Urine specimen collection, clean catch / Unknown 12/12/2024 4:37 PM EDT 12/12/2024 5:15 PM EDT us Leeanna Ardon NICKER-INSTRUCTOR PILOT URINE ORDERABLES Veronica l Result Performing Organization Address City/[facility] Co de Phone Number [address] [place] [address], [place] * Troponin I, High Sensitivity 0 Hour (12/12/2024 3:44 PM EDT) TROPONIN I, HIGH SENSITIVITY 2 <16 ng/L 12/12/2024 4:14 PM EDT [facility] Blood Venous blood / Unknown Venipuncture / Unknown 12/12/2024 3:44 PM EDT 12/12/2024 3:46 PM EDT us Leeanna Ardon NICKER-INSTRUCTOR PILOT LAB BLOOD ORDERABLES Final Result Performing Organization Address City/[facility]/ZIP Co de Phone Number [address] [place] [address], [place] * Light Blue Top (12/12/2024 3:44 PM EDT) Extra Tube Auto Resulted 12/12/2024 5:01 PM EDT [facility] Blood Venous blood / Unknown Venipuncture / Unknown 12/12/2024 3:44 PM EDT 12/12/2024 3:46 PM EDT us Deric Herman DO LAB BLOOD ORDERABLES Final R esult Performing Organization Address City/[facility]/ZIP Co de Phone Number [address] [place] [address], [place] * CBC auto differential (12/12/2024 3:44 PM EDT) Pathologist [facility] WBC 6.7 4 - 11 x10E9/L 12/12/2024 3:50 PM EDT [facility] RBC Count 4.37 3.8 - 5.2 X10E12/L 12/12/2024 3:50 PM EDT [facility] Hemoglobin 12.8 11.7 - 15.5 g/dL 12/12/2024 3:50 PM EDT [facility] Hematocrit 36.8 35 - 47 % 12/12/2024 3:50 PM EDT [facility] MCV 84 80 - 100 fL 12/12/2024 3:50 PM EDT [facility] MCH 29.3 27 - 34 pg 12/12/2024 3:50 PM EDT [facility] MCHC 34.9 32 - 36 g/dL 12/12/2024 3:50 PM EDT [facility] RDW 12.3 11.5 - 15 % 12/12/2024 3:50 PM EDT [facility] Platelet Count 234 150 - 450 X10E9/L 12/12/2024 3:50 PM EDT [facility] MPV 8.9 7 - 12 fL 12/12/2024 3:50 PM EDT [facility] Neutrophils % 58.5 % 12/12/2024 3:50 PM EDT [facility] Lymphocytes % 33.0 % 12/12/2024 3:50 PM EDT [facility] Monocytes % 6.3 % 12/12/2024 3:50 PM EDT [facility] Eosinophils % 1.0 % 12/12/2024 3:50 PM EDT [facility] Basophils % 1.2 % 12/12/2024 3:50 PM EDT [facility] Neutrophils Absolute (A) 3.9 1.5 - 6.6 10*3/uL 12/12/2024 3:50 PM EDT [facility] Lymphocytes Absolute 2.2 1.0 - 3.5 10*3/uL 12/12/2024 3:50 PM EDT [facility] Monocytes Absolute 0.4 0.0 - 0.9 10*3/uL 12/12/2024 3:50 PM EDT [facility] Eosinophils Absolute 0.1 0.0 - 0.4 10*3/uL 12/12/2024 3:50 PM EDT [facility] Basophils Absolute 0.1 0.0 - 0.2 10*3/uL 12/12/2024 3:50 PM EDT [facility] Differential Type AUTOMATED DIFFERENTIAL 12/12/2024 3:50 PM EDT [facility] Blood Venous blood / Unknown Venipuncture / Unknown 12/12/2024 3:44 PM EDT 12/12/2024 3:46 PM EDT Leeanna Ardon NICKER-INSTRUCTOR PILOT LAB BLOOD ORDERABLES Final Result Performing Organization Address City/[facility]/ZIP Co de Phone Number [address] [place] [address], [place] * Magnesium (12/12/2024 3:44 PM EDT) MAGNESIUM 1.9 1.8 - 2.6 mg/dL 12/12/2024 4:05 PM EDT [facility] Blood Venous blood / Unknown Venipuncture / Unknown 12/12/2024 3:44 PM EDT 12/12/2024 3:46 PM EDT Leeanna Ardon NICKER-INSTRUCTOR PILOT LAB BLOOD ORDERABLES Final Result Performing Organization Address City/[facility] Co de Phone Number [address] [place] [address], [place] * (ABNORMAL) Comprehensive metabolic panel (12/12/2024 3:44 PM EDT) SODIUM 138 134 - 146 mmol/L 12/12/2024 4:05 PM EDT [facility] POTASSIUM 3.2(L) 3.5 - 5.0 mmol/L 12/12/2024 4:05 PM EDT [facility] CHLORIDE 105 98 - 109 mmol/L 12/12/2024 4:05 PM EDT [facility] CARBON DIOXIDE 20(L) 22 - 32 mmol/L 12/12/2024 4:05 PM EDT [facility] ANION GAP 13 5 - 15 mmol/L 12/12/2024 4:05 PM EDT [facility] BLOOD UREA NITROGEN 20 5 - 23 mg/dL 12/12/2024 4:05 PM EDT [facility] CREATININE 0.70 0.40 - 1.00 mg/dL 12/12/2024 4:05 PM EDT [facility] Comment:METHOD TRACEABLE TO [facility] STANDARD GLUCOSE 119(H) 65 - 99 mg/dL 12/12/2024 4:05 PM EDT [facility] CALCIUM 8.9 8.5 - 10.5 mg/dL 12/12/2024 4:05 PM EDT [facility] TOTAL PROTEIN 6.5 6.0 - 8.0 g/dL 12/12/2024 4:05 PM EDT [facility] ALBUMIN 3.9 3.2 - 5.3 g/dL 12/12/2024 4:05 PM EDT [facility] ALKALINE PHOSPHATASE 55 39 - 130 U/L 12/12/2024 4:05 PM EDT [facility] AST 18 <=41 U/L 12/12/2024 4:05 PM EDT [facility] ALT 16 <=31 U/L 12/12/2024 4:05 PM EDT [facility] BILIRUBIN,TOTAL 0.7 0.3 - 1.2 mg/dL 12/12/2024 4:05 PM EDT [facility] EGFR Non-Race Dependent >90 >=60 ml/min/1.7 3sq.m 12/12/2024 4:05 PM EDT [facility] Comment: eGFR not reported due to non-numeric value for Creatinine. Reported eGFR is based on the CKD-EPI 2020 equation that does not use a race coefficient. Blood Venous blood / Unknown Venipuncture / Unknown 12/12/2024 3:44 PM EDT 12/12/2024 3:46 PM EDT us Leeanna Ardon NICKER-INSTRUCTOR PILOT LAB BLOOD ORDERABLES Final Result [facility] [address] [place] [address], * ED NIHSS And Thrombolytic MD Screening (12/12/2024 3:29 PM EDT) Narrative Deric Herman DO - 12/12/2024 3:29 PM EDT Deric Herman DO 12/26/2024 7:08 PM ED NIHSS And Thrombolytic MD Screening Performed by: RACHEL Ivy Authorized by: Deric Herman DO Time NIHSS was performed: 12/12/2024 3:36 PM Interval: Baseline LOC: 0 - Alert LOC Questions: 0 - Answers both correctly LOC Commands: 0 - Performs both tasks correctly Best Gaze: 0 - Normal horizontal movements Visual Alanis: 0 - No visual field defect Facial Movements: 0 - Normal Motor Function Right Arm: 0 - No drift right arm holds for 10 seconds Motor Function Left Arm: 0 - No drift left arm holds for 10 seconds Motor Function Right Le - No drift right leg holds for full 5 seconds Motor Function Left Le - No drift left leg, holds for full 5 seconds Limb Ataxia: 0 - No limb ataxia Sensory: 0 - No sensory loss Language: 0 - Language normal Articulation: 0 - Articulation normal Extinction or Inattention: 0 - Extinction or inattention absent Confirmed Time of Onset or Last Known Well: Date: 12/12/2024 Time: 14:30 EDT TOTAL NIHSS SCORE: 0 Do presenting disabilities interfere with lifestyle(i.e. work, hobbies, entertainment etc.?: Yes Other Contraindications: Low NIHSS with s/s that do not interfere with quality of life Decision for Thrombolytics: Thrombolytics will not be given based on the history and assessment of the patient. us Deric Herman DO PROCEDURE/MINOR SURGICAL ORD ERABLES Final Result * ECG 12 lead (12/12/2024 3:17 PM EDT) 12/12/2024 3:17 PM EDT Narrative [facility] - 12/30/2024 4:29 PM EDT Leeanna RAMOS ECG ORDERABLES Final Result [facility] from Last 3 Months Insurance [employer] Care Teams Business Risk Consultant Relationship Specialty Start Date End Date Silvia Mane MD [address] [place] [phone] PCP - General Family Medicine 08/11/24
--- NOTE | 2024-12-31 11:25 | ED.GENADUL1 ---
HPI HPI - General Adult General Chief complaint: Upper Respiratory Infection Stated complaint: CONJESTION WEAKNESS SORE THROAT Time Seen by Provider: 12/31/24 11:16 Source: patient Mode of arrival: walk-in Limitations: no limitations History of Present Illness HPI narrative: 54-year-old female presented to the emergency department for a 3-day history of fatigue and sore throat and the concern for COVID. She is being seen along with her mother who has similar symptoms. The patient has been on an antibiotic, Zithromax, but it has not helped. Related Data Home Medications ?Medication ?Instructions ?Recorded ?Confirmed calcium carbonate (Calcium 600) 1,500 mg PO DAILY 08/13/23 07/13/24 cholecalciferol (vitamin D3) 250 10,000 unit PO DAILY 08/13/23 07/13/24 mcg (10,000 unit) capsule citalopram 40 mg tablet 40 mg PO DAILY 08/13/23 07/13/24 levothyroxine 88 mcg tablet 88 mcg PO DAILY 08/13/23 07/13/24 mecobalamin (vitamin B12) 500 mcg 500 mcg PO DAILY 08/13/23 07/13/24 chewable tablet omeprazole 20 mg capsule,delayed 20 mg PO DAILY 08/13/23 07/13/24 release thiamine HCl (vitamin B1) 100 mg 100 mg PO TID 08/13/23 07/13/24 tablet amitriptyline 75 mg tablet mg 07/13/24 Previous Rx's ?Medication ?Instructions ?Recorded methocarbamol 750 mg tablet 750 mg PO TID PRN pain #20 tabs 08/13/23 ondansetron 4 mg disintegrating 4 mg PO Q6H PRN nausea and 05/28/24 tablet vomiting #12 tabs lidocaine 5 % topical patch 1 patch topical Q24H #15 ea 07/13/24 (Lidoderm) methocarbamol 500 mg tablet 500 mg PO Q8H PRN muscle pain #10 07/13/24 tabs Allergies Allergy/AdvReac Type Severity Reaction Status Date / Time No Known Drug Allergies Allergy Verified 12/31/24 11:11 Opioid HPI Opioid Management Most Recent Opioid Data: Last Pain Scale 8 07/13/24, 09:30 Review of Systems ROS Narrative A ten point review of systems is negative except as noted above. PFSH PFSH Social History (Reviewed 05/28/24 @ 17:23 by NOVA Bonilla Little interest or pleasure in doing things: not at all Feeling down, depressed, or hopeless: not at all Exam Narrative Exam Narrative: Nurses note and vital signs reviewed and patient is not hypoxic. General: The patient appears well and in no apparent distress. Patient is resting comfortably on cart. Skin: Warm, dry, no pallor noted. There is no rash noted. Head: Normocephalic, atraumatic Eye: Normal conjunctiva, no drainage Ears, Nose, Mouth, and Throat: oral mucosa is moist. Nares patent. No exudate in the pharynx. Cardiovascular: Regular Rate and Rhythm Respiratory: Patient is in no distress, no accessory muscle use, lungs are clear to auscultation, no wheezing, rales or rhonchi Back: non-tender GI: Soft and nontender Musculoskeletal: The patient has no evidence of calf tenderness, no pitting edema, symmetrical pulses noted bilaterally Neurological: A&O, normal speech Psychiatric: Cooperative Constitutional Vital Signs, click to edit/add: Last Vital Signs Temp 98.8 F 12/31/24 11:11 Pulse 68 12/31/24 11:11 Resp 18 12/31/24 11:11 BP 95/40 L 12/31/24 11:11 Pulse Ox 94 L 12/31/24 11:11 O2 Del Method Room Air 12/31/24 11:11 Course Vital Signs Vital signs: Vital Signs Temperature 98.8 F 12/31/24 11:11 Pulse Rate 68 12/31/24 11:11 Respiratory Rate 18 12/31/24 11:11 Blood Pressure 95/40 L 12/31/24 11:11 Pulse Oximetry 94 L 12/31/24 11:11 Oxygen Delivery Method Room Air 12/31/24 11:11 Temperature 98.8 F 12/31/24 11:11 Pulse Rate 68 12/31/24 11:11 Respiratory Rate 18 12/31/24 11:11 Blood Pressure 95/40 L 12/31/24 11:11 Pulse Oximetry 94 L 12/31/24 11:11 Oxygen Delivery Method Room Air 12/31/24 11:11 Medical Decision Making MDM Narrative Medical decision making narrative: COVID and strep test are negative. My clinical impression is that she has a viral illness. Antibiotic not indicated. Treatment diagnosis and follow-up were discussed with the patient. Differential Diagnosis Differential Diagnosis: COVID, strep, viral illness Lab Data Lab results reviewed: Yes I reviewed the patient's lab results Labs: Lab Results 12/31/24 Range/Units 11:28 SARS-CoV-2 Ag (CV2AG) Negative (NEGATIVE) Streptococcus Screen Negative Discharge Plan Discharge Chief Complaint: Upper Respiratory Infection Clinical Impression: Viral URI Patient Disposition: Home, Self-Care Time of Disposition Decision: 12:08 Condition: Good Mode of Transportation: Private Vehicle Prescriptions / Home Meds: No Action citalopram 40 mg tablet 40 mg PO DAILY levothyroxine 88 mcg tablet 88 mcg PO DAILY omeprazole 20 mg capsule,delayed release(DR/EC) 20 mg PO DAILY calcium carbonate [Calcium 600] 600 mg calcium (1,500 mg) tablet 1,500 mg PO DAILY cholecalciferol (vitamin D3) 250 mcg (10,000 unit) capsule 10,000 unit PO DAILY thiamine HCl (vitamin B1) 100 mg tablet 100 mg PO TID mecobalamin (vitamin B12) 500 mcg tablet,chewable 500 mcg PO DAILY methocarbamol 750 mg tablet 750 mg PO TID PRN (Reason: pain) Qty: 20 0RF ondansetron 4 mg tablet,disintegrating 4 mg PO Q6H PRN (Reason: nausea and vomiting) Qty: 12 0RF amitriptyline 75 mg tablet methocarbamol 500 mg tablet 500 mg PO Q8H PRN (Reason: muscle pain) Qty: 10 0RF lidocaine [Lidoderm] 5 % adhesive patch,medicated 1 patch topical Q24H Qty: 15 0RF Rx Instructions: leave on most painful area for up to 12 hrs Print Language: Occitan Instructions: Upper Respiratory Infection (ED), Viral Syndrome (ED) Referrals: ASHLEY HUIZAR [Primary Care Provider, Family Practice] - 1 week
--- OUTSIDE RECORDS SUMMARY | 2024-12-31 11:28 | XMS_ITS | CCD ---
Author Organization [facility] Care Team Providers Care Carburetor Repairer Name Role Phone DR LANI PEACOCK Admitting [...] Referring Unavailable ASHLEY MANE Primary Care Unavailable TARA SMITH Attending Unavailable BHUPENDRA, ASHLEY A Referring Unavailable ASHLEY MANE A Primary Care Unavailable Ashley Mane MD Primary Care Provider [phone] Ashley Mane MD Primary Care Provider sAhley Mane MD Primary Care Provider [phone] TARA SMITH Attending Unavailable BHUPENDRA, ASHLEY A Referring Unavailable BHUPENDRA, ASHLEY A Primary Care Unavailable ASHLEY MANE [...] 90 tablet 1 08/27/2023 03/05/2024 Discontinued (Reorder) nhwpozpf-ylbd-rhum-FA-K-hb#2 44 18-400-80 mg-mcg-mcg tablet (7 sources) rwvssmdm-osoj-pq on-FA-K-hb#244 18-400-80 mg-mcg-mcg tablet Take by mouth. Active oyqezxhc-mdfb-fd on-FA-K-hb#244 18-400-80 mg-mcg-mcg tablet Take by mouth. [...] 07-02-2021 Episodic Other aftercare (1 source) Other terminal carman (current) drug therapy; Translations: [[facility] CURRENT DRUG THERAPY] Onset: 07-04-2021 Episodic Other [...] BY AUTOMATED COUNT 0.1 10*3/uL Normal 0.0-0.2 [facility] Comment on above: Performed By: #### C BCA #### [address] [address] VIR BASOPHILS RELATIVE PERCENT BY AUTOMATED COUNT 1.2 % Normal [facility] Comment on above: Performed By: #### C BCA #### [address] [address] VIR CELLAVISION DIFFERENTIAL TYPE AUTOMATED DIFFERENTIAL Normal [facility] Comment on above: Performed By: #### C BCA #### [facility] ([address] [address] VIR Eosinophils (Bld) [#/Vol] 0.1 10*3/uL Normal 0.0-0.4 [facility] Comment on above: Performed By: #### C BCA #### [facility] ([address] [address] VIR EOSINOPHILS RELATIVE PERCENT BY AUTOMATED COUNT 1.0 % Normal [facility] Comment on above: Performed By: #### C BCA #### [facility] ([address] [place] [address] VIR Erythrocyte distribution width (RBC) [Ratio] 12.3 % Normal 11.5-15 [facility] Comment on above: Performed By: #### C BCA #### [facility] ([address] [place] [address] VIR Hematocrit (Bld) [Volume fraction] 36.8 % Normal 35-47 [facility] Comment on above: Performed By: #### C BCA #### [facility] ([address] [address] VIR Hemoglobin (Bld) [Mass/Vol] 12.8 g/dL Normal 11.7-15.5 [facility] Comment on above: Performed By: #### C BCA #### [facility] ([address] [address] VIR LYMPHOCYTES ABSOLUTE COUNT (10*3/UL) BY AUTOMATED COUNT 2.2 10*3/uL Normal 1.0-3.5 [facility] Comment on above: Performed By: #### C BCA #### [facility] ([address] [address] VIR LYMPHOCYTES RELATIVE PERCENT BY AUTOMATED COUNT 33.0 % Normal [facility] Comment on above: Performed By: #### C BCA #### [facility] ([address] [place] [address] VIR MCH (RBC) [Entitic mass] 29.3 pg Normal 27-34 [facility] Comment on above: Performed By: #### C BCA #### [facility] ([address] [address] VIR MCHC (RBC) [Mass/Vol] 34.9 g/dL Normal 32-36 [facility] Comment on above: Performed By: #### C BCA #### [facility] ([address] [place] [address] VIR MCV (RBC) [Entitic vol] 84 fL Normal 80-100 [facility] Comment on above: Performed By: #### C BCA #### [facility] ([facility]) [address] [place] [address]. [place] [address] VIR MONOCYTES ABSOLUTE COUNT (10*3/UL) BY AUTOMATED COUNT 0.4 10*3/uL Normal 0.0-0.9 [facility] Comment on above: Performed By: #### C BCA #### [facility] ([address] [address] VIR MONOCYTES RELATIVE PERCENT BY AUTOMATED COUNT 6.3 % Normal [facility] Comment on above: Performed By: #### C BCA #### [facility] ([address] [address] VIR NEUTROPHILS ABSOLUTE COUNT BY AUTOMATED COUNT 3.9 10*3/uL Normal 1.5-6.6 [facility] Comment on above: Performed By: #### C BCA #### [facility] ([address] [address] VIR NEUTROPHILS RELATIVE PERCENT BY AUTOMATED COUNT 58.5 % Normal [facility] Comment on above: Performed By: #### C BCA #### [facility] ([address] [place] [address] VIR Platelet mean volume (Bld) [Entitic vol] 8.9 fL Normal 7-12 [facility] Comment on above: Performed By: #### C BCA #### [facility] ([address] [place] [address] VIR Platelets (Bld) [#/Vol] 234 10*3/uL Normal 150-450 [facility] Comment on above: Performed By: #### C BCA #### [facility] ([address] [address] VIR RBC COUNT 4.37 X10E12/L Normal 3.8-5.2 [facility] Comment on above: Performed By: #### C BCA #### [facility] ([address] [place] [address] VIR WBC (Bld) [#/Vol] 6.7 10*3/uL Normal 4-11 [facility] Comment on above: Performed By: #### C BCA #### [facility] ([address] [place] [address] VIR COMPREHENSIVE METABOLIC PANE Rufino 12-12-2024 Albumin [Mass/Vol] 3.9 g/dL Normal 3.2-5.3 [facility] Comment on above: Performed By: #### C MP #### [facility] ([address] [place] [address] VIR ALP [Catalytic activity/Vol] 55 U/L Normal 39-130 [facility] Comment on above: Performed By: #### C MP #### [facility] ([address] [place] [address] VIR ALT [Catalytic activity/Vol] 16 U/L Normal <=31 [facility] Comment on above: Performed By: #### C MP #### [facility] ([address] [place] [address] VIR Anion gap [Moles/Vol] 13 mmol/L Normal 5-15 [facility] Comment on above: Performed By: #### C MP #### [facility] ([address] [place] [address] VIR AST [Catalytic activity/Vol] 18 U/L Normal <=41 [facility] Comment on above: Performed By: #### C MP #### [facility] ([address] [place] [address] VIR Bilirubin [Mass/Vol] 0.7 mg/dL Normal 0.3-1.2 [facility] Comment on above: Performed By: #### C MP #### [facility] ([address] [address] VIR Calcium [Mass/Vol] 8.9 mg/dL Normal 8.5-10.5 [facility] Comment on above: Performed By: #### C MP #### [facility] ([address] [address] VIR Chloride [Moles/Vol] 105 mmol/L Normal 98-109 [facility] Comment on above: Performed By: #### C MP #### [facility] ([address] [address] VIR CO2 [Moles/Vol] 20 mmol/L Low 22-32 [facility] Comment on above: Performed By: #### C MP #### [facility] ([address] [address] VIR Creatinine [Mass/Vol] 0.70 mg/dL Normal 0.40-1.00 [facility] Comment on above: Result Comment: METH OD TRACEABLE TO IDMS STANDARD Performed By: #### C MP #### [facility] ([address] [address] VIR EGFR (CKD-EPI) NON-RACE DEPENDENT >^90 Normal >=60 [facility] Comment on above: Result Comment: eGFR not reported due to non-numeric value for Creatinine. Reported eGFR is based on the CKD-EPI 2021 equation that does not use a race coefficient. Performed By: #### C MP #### [facility] ([address] [place] [address] VIR Glucose [Mass/Vol] 119 mg/dL High 65-99 [facility] Comment on above: Performed By: #### C MP #### [facility] ([address] [place] [address] VIR Potassium [Moles/Vol] 3.2 mmol/L Low 3.5-5.0 [facility] Comment on above: Performed By: #### C MP #### [facility] ([place] [address] [place] [address] VIR Protein [Mass/Vol] 6.5 g/dL Normal 6.0-8.0 [facility] Comment on above: Performed By: #### C MP #### [facility] ([address] [place] [address] VIR Sodium [Moles/Vol] 138 mmol/L Normal 134-146 [facility] Comment on above: Performed By: #### C MP #### [facility] ([address] [place] [address] VIR Urea nitrogen [Mass/Vol] 20 mg/dL Normal 5-23 [facility] Comment on above: Performed By: #### C MP #### [facility] ([address] [place] [address] VIR MAGNESIUMon 12-12-2024 Magnesium [Mass/Vol] 1.9 mg/dL Normal 1.8-2.6 [facility] Comment on above: Performed By: #### M G #### [facility] ([address] [place] [address] VIR POCT NURSING URINE MACROSCOP IC UAon 12-12-2024 BILIRUBIN ROXANN Negative Normal Negative [facility] Comment on above: Performed By: #### N UM #### [facility] ([address] [place] [address] VIR BLOOD/HGB ROXANN Negative Normal Negative [facility] Comment on above: Performed By: #### N UM #### [facility] ([address] [place] [address] VIR GLUCOSE ROXANN Negative Normal Negative [facility] Comment on above: Performed By: #### N UM #### [facility] ([address] [address] VIR KETONES ROXANN 15 mg/dL Abnormal Negative [facility] Comment on above: Performed By: #### N UM #### [facility] ([address] [address] VIR LEUKOCYTE ESTERASE ROXANN Negative Normal Negative [facility] Comment on above: Performed By: #### N UM #### [facility] ([address] [address] VIR NITRITE ROXANN Negative Normal Negative [facility] Comment on above: Performed By: #### N UM #### [address] [place] [address] VIR PH ROXANN 8.5 Normal 5.0, 6.0, 6.5, 7.0, 7.5, 8.0, 8.5, 5.5 [facility] Comment on above: Performed By: #### N UM #### [facility] ([address] [address] VIR PROTEIN ROXANN Negative Normal Negative [facility] Comment on above: Performed By: #### N UM #### [address] [address] VIR SPECIFIC GRAVITY ROXANN 1.020 Normal 1.010, 1.015, 1.020, 1.025 [facility] Comment on above: Performed By: #### N UM #### [address] [address] VIR UROBILINOGEN ROXANN 0.2 E.U./dL Normal [facility] Comment on above: Performed By: #### N UM #### [facility] ([address] [address] VIR TROP I, HIGH SENSITIVITY 1 H OURon 12-12-2024 TROPONIN I, HIGH SENSITIVITY 3 ng/L Normal <16 [facility] Comment on above: Performed By: #### T NIHS1 #### [facility] ([facility]) [address] [place] [address]. [place] [address] VIR TROPONIN I, HIGH SENSITIVITY 0 HOURon 12-12-2024 TROPONIN I, HIGH SENSITIVITY 2 ng/L Normal <16 [facility] Comment on above: Performed By: #### T NIHS0 #### [facility] ([facility]) [address] [place] [address]. [place] [address] VIR BASIC METABOLIC PANLon 08-11 Anion gap [Moles/Vol] 11 mmol/L Normal 5-15 [facility] Comment on above: Performed By: #### C BCA, BMP #### [facility] ([id number]) [address] [place] [address] Calcium [Mass/Vol] 9.2 mg/dL Normal 8.5-10.5 [facility] Comment on above: Performed By: #### C BCA, BMP #### [facility] ([id number]) [address] [place] [address] Chloride [Moles/Vol] 102 mmol/L Normal 98-109 [facility] Comment on above: Performed By: #### C BCA, BMP #### [facility] ([id number]) [address] [place] [address] CO2 [Moles/Vol] 25 mmol/L Normal 22-32 [facility] Comment on above: Performed By: #### C BCA, BMP #### [facility] ([id number]) [address] [place] [address] Creatinine [Mass/Vol] 0.68 mg/dL Normal 0.40-1.00 [facility] Comment on above: Result Comment: METH OD TRACEABLE TO IDMS STANDARD Performed By: #### C ANATOLY, BMP #### [facility] ([id number]) [address] [place] [address] eGFR (CKD-EPI) NON-RACE DEPENDENT >90 Normal >59 [facility] Comment on above: Result Comment: Reported eGFR is based on the CKD-EPI 2020 equation that does not use a race coefficient. Performed By: #### C BCA, BMP #### [facility] ([id number]) [address] [place] [address] Glucose [Mass/Vol] 88 mg/dL Normal 65-99 [facility] Comment on above: Performed By: #### C ANATOLY, BMP #### [facility] ([id number]) [address] [place] [address] Potassium [Moles/Vol] 3.3 mmol/L Low 3.5-5.0 [facility] Comment on above: Performed By: #### C BCA, BMP #### [facility] ([id number]) [address] [place] [address] Sodium [Moles/Vol] 138 mmol/L Normal 134-146 [facility] Comment on above: Performed By: #### C BCA, BMP #### [facility] ([id number]) [address] [place] [address] Urea nitrogen [Mass/Vol] 18 mg/dL Normal 5-23 [facility] Comment on above: Performed By: #### C BCA, BMP #### [facility] ([id number]) [address] [place] [address] CBC AND AUTO DIFFon 18- 25 ABSOLUTE BASOPHIL 0.0 X10E9/L Normal 0.0-0.2 [facility] Comment on above: Performed By: #### C BCA, BMP #### [facility] ([id number]) [address] [place] [address] ABSOLUTE NEUTROPHIL 1.8 X10E9/L Normal 1.5-6.6 [facility] Comment on above: Performed By: #### C ANATOLY, BMP #### [facility] ([id number]) [address] [place] [address] Basophils/100 WBC (Bld) 0.9 % Normal [facility] Comment on above: Performed By: #### C ANATOLY, BMP #### [facility] ([id number]) [address] [place] [address] Eosinophils (Bld) [#/Vol] 0.0 10*3/uL Normal 0.0-0.4 [facility] Comment on above: Performed By: #### C ANATOLY, BMP #### [facility] ([id number]) [address] [place] [address] Eosinophils/100 WBC (Bld) 1.0 % Normal [facility] Comment on above: Performed By: #### C ANATOLY, BMP #### [facility] ([id number]) [address] [place] [address] Erythrocyte distribution width (RBC) [Ratio] 12.2 % Normal 11.5-15.0 [facility] Comment on above: Performed By: #### C ANATOLY, BMP #### [facility] ([id number]) [address] [place] [address] Hematocrit (Bld) [Volume fraction] 42.7 % Normal 35-47 [facility] Comment on above: Performed By: #### C ANATOLY, BMP #### [facility] ([id number]) [address] [place] [address] Hemoglobin (Bld) [Mass/Vol] 14.7 g/dL Normal 11.7-15.5 [facility] Comment on above: Performed By: #### C ANATOLY, BMP #### [facility] ([id number]) [address] [place] [address] Lymphocytes (Bld) [#/Vol] 1.1 10*3/uL Normal 1.0-3.5 [facility] Comment on above: Performed By: #### C BCA, BMP #### [facility] ([id number]) [address] [place] [address] Lymphocytes/100 WBC (Bld) 33.0 % Normal [facility] Comment on above: Performed By: #### C ANATOLY, BMP #### [facility] ([id number]) [address] [place] [address] MCH (RBC) [Entitic mass] 29.7 pg Normal 27-34 [facility] Comment on above: Performed By: #### C ANATOLY, BMP #### [facility] ([id number]) [address] [place] [address] MCHC (RBC) [Mass/Vol] 34.5 g/dL Normal 32-36 [facility] Comment on above: Performed By: #### C ANATOLY, BMP #### [facility] ([id number]) [address] [place] [address] MCV (RBC) [Entitic vol] 86 fL Normal 80-100 [facility] Comment on above: Performed By: #### C ANATOLY, BMP #### [facility] ([id number]) [address] [place] [address] Monocytes (Bld) [#/Vol] 0.4 10*3/uL Normal 0-0.9 [facility] Comment on above: Performed By: #### C BCA, BMP #### [facility] ([id number]) [address] [place] [address] Monocytes/100 WBC (Bld) 12.7 % Normal [facility] Comment on above: Performed By: #### C ANATOLY, BMP #### [facility] ([id number]) [address] [place] [address] Neutrophils/100 WBC (Bld) 52.4 % Normal [facility] Comment on above: Performed By: #### C ANATOLY, BMP #### [facility] ([id number]) [address] [place] [address] Platelet mean volume (Bld) [Entitic vol] 9.1 fL Normal 7-12 [facility] Comment on above: Performed By: #### C ANATOLY, BMP #### [facility] ([id number]) [address] [place] [address] Platelets (Bld) [#/Vol] 190 10*3/uL Normal 150-450 [facility] Comment on above: Performed By: #### C ANATOLY, BMP #### [facility] ([id number]) [address] [place] [address] RBC COUNT 4.97 X10E12/L Normal 3.80-5.20 [facility] Comment on above: Performed By: #### Wallace LEDBETTER, BMP #### [facility] ([id number]) [address] [place] [address] WBC (Bld) [#/Vol] 3.5 10*3/uL Low 4.0-11.0 [facility] Comment on above: Performed By: #### Wallace LEDBETTER, BMP #### [facility] ([id number]) [address] [place] [address] SARS/FLU A+B/RSV by NAAT/Mol ecularon 08-11-2024 SARS/FLU [...] operators who are performing tests using either [employer] or [employer] systems and is limited to laboratories that [...] repeat. Fact Sheet for Healthcare Providers: https://www.fda.gov/m edia/780213/download Fact Sheet for Patients: https://www.fda.gov/m edia/341470/download Normal [facility] Comment on above: Performed By: #### C OVFLR #### [facility] ([id number]) [address] [place] [address], [place] [address] MARCO ANTONIO KHAI [place] 2024 BILIRUBIN ROXANN MODERATE Abnormal NEG [facility] Comment on above: Performed By: #### N UM #### [facility] ([id number]) [address] [place] [address] [place] [address] BLOOD/HGB ROXANN Negative Normal NEG [facility] Comment on above: Performed By: #### N UM #### [facility] ([id number]) [address] [place] [address], [place] [address] GLUCOSE ROXANN Negative Normal NEG [facility] Comment on above: Performed By: #### N UM #### [facility] ([id number]) [address] [place] [address], [place] [address] KETONES ROXANN 40 mg/dL Abnormal NEG [facility] Comment on above: Performed By: #### N UM #### [facility] ([id number]) [address] [place] [address] [place] [address] LEUKOCYTE ESTERASE ROXANN Negative Normal NEG [facility] Comment on above: Performed By: #### N UM #### [facility] ([id number]) [address] [place] [address] [place] [address] NITRITE ROXANN Negative Normal NEG [facility] Comment on above: Performed By: #### N UM #### [facility] ([id number]) [address] [place] [address] [place] [address] PH ROXANN 5.5 Normal 5.0-8.5 [facility] Comment on above: Performed By: #### N UM #### [facility] ([id number]) [address] [place] [address] [place] [address] PROTEIN ROXANN 30 mg/dL Abnormal NEG [facility] Comment on above: Performed By: #### N UM #### [facility] ([id number]) [address] [place] [address], [place] [address] SPECIFIC GRAVITY ROXANN >=1.030 Normal 1.003-1.035 [facility] Comment on above: Performed By: #### N UM #### [facility] ([id number]) [address] [facility] [place] [address] UROBILINOGEN ROXANN 0.2 eu/dL Normal <1.1 [facility] Comment on above: Performed By: #### N UM #### [facility] ([id number]) [address] [facility] [address] [place] [address] T4 FREE AND TSHon 01-20-2024 T4 - FREE 1.02 UG/DL Normal (0.64 - 1.79) [facility] Comment on above: Order Comment: FACIL ITY: DR MANE - OFFICE [id number] Performed By: #### T 4FTSH #### [facility] [address] [facility], [address] TSH Qn 1.82 m[IU]/L Normal (0.470 - 4.680) [facility] Comment on above: Order Comment: FACIL ITY: DR MANE - OFFICE [id number] Performed By: #### T 4FTSH #### [facility] [address] [facility], [address] [facility]19 [facility]on SARS-CoV-2 (COVID-19) RNA DOMINIC+probe Ql (Unsp spec) Not detected Normal NOT DETECTED [facility] Comment on above: Result Comment: This test is not yet approved or cleared by the [place] FDA. When there are no FDA-approved or cleared tests available, and other criteria are met, FDA can make tests available under an emergency access mechanism called an Emergency Use Authorization (EUA). The EUA for this test is supported by the [place] of Health and Human Service's (HHS's) declaration [...] SARS-CoV-2. Performed By: #### C VDTBH #### [facility] [address] [place] [address] Dr. Ewa Solano INFLUENZA A AND B AGon 05-29 [facility] SEE BELOW Normal [facility] Comment on above: Result Comment: Nega tive for Flu A protein angiten. Infection due to Flu A cannot be ruled out. Flu A angiten in the sample may be below the detection limit of the test. Performed By: #### I NFLUAB #### [facility] [address] [place] [address] Dr. Ewa Solano INFLUBNEG SEE BELOW Normal [facility] Comment on above: Result Comment: Nega tive for Flu B protein antigen. Infection due to Flu B cannot be ruled out. Flu B antigen in the sample may be below the detection limit of the test. Performed By: #### I NFLUAB #### [facility] [address] [place] [address] Dr. Ewa Solano INFLUENZA A AG Negative Normal NEGATIVE SEE COMMENT [facility] Comment on above: Performed By: #### I NFLUAB #### [facility] [address] [place] [address] Dr. Ewa Solano INFLUENZA B AG Negative Normal NEGATIVE SEE COMMENT [facility] Comment on above: Performed By: #### I NFLUAB #### [facility] [address] [place] [address] Dr. Ewa Solano CULTURE URINEon 07-03-2021 CULTURE URINE Culture Observations : GREATER THAN TWO ORGANISMS PRESENT. PLEASE RESUBMIT CLEAN CATCH MID-STREAM URINE IF CLINICALLY INDICATED. Normal [facility] Comment on above: Performed By: #### U RCX #### [facility] [address] [place] [address] Dr. Ewa Solano CBC AUTO DIFFon 07-02-2021 BASO # 0.0 103/ul Normal 0.0-0.1 [facility] Comment on above: Performed By: #### C BC #### [facility] [address] [place] [address] Dr. Ewa Solano Basophils/100 WBC (Bld) 0.4 % Normal 0.2-2.0 [facility] Comment on above: Performed By: #### C BC #### [facility] [address] [place] [address] Dr. Ewa Solano EO # 0.1 103/ul Normal 0.0-0.7 [facility] Comment on above: Performed By: #### C BC #### [facility] [address] [place] [address] Dr. Ewa Solano Eosinophils/100 WBC (Bld) 0.7 % Critically low 0.9-7.0 [facility] Comment on above: Performed By: #### C BC #### [facility] [address] [place] [address] Dr. Ewa Solano Erythrocyte distribution width (RBC) [Ratio] 11.9 % Normal 11.0-15.0 [facility] Comment on above: Performed By: #### C BC #### [facility] [address] [place] [address] Dr. Ewa Solano Hematocrit (Bld) [Volume fraction] 47.0 % Normal 36.0-48.0 [facility] Comment on above: Performed By: #### C BC #### [facility] [address] [place] [address] Dr. Ewa Solano Hemoglobin (Bld) [Mass/Vol] 16.2 g/dL Critically high 12.0-16.0 [facility] Comment on above: Performed By: #### C BC #### [facility] [address] [place] [address] Dr. Ewa Solano IG # 0.02 10e3/ul Normal 0.00-0.03 [facility] Comment on above: Performed By: #### C BC #### [facility] [address] [place] [address] Dr. Ewa Solano IG % 0.3 % Normal 0.0-0.5 [facility] Comment on above: Performed By: #### C BC #### [facility] [address] [place] [address] Dr. Ewa Solano LYMPH # 2.1 103/ul Normal 1.2-3.8 [facility] Comment on above: Performed By: #### C BC #### [facility] [address] [place] [address] Dr. Ewa Solano Lymphocytes/100 WBC (Bld) 30.0 % Normal 20.5-60.0 [facility] Comment on above: Performed By: #### C BC #### [facility] [address] [place] [address] Dr. Ewa Solano MANUAL DIFF REQ NO Normal [facility] Comment on above: Performed By: #### C BC #### [facility] [address] [place] [address] Dr. Ewa Solano MCH (RBC) [Entitic mass] 29.1 pg Normal 26.7-34.0 [facility] Comment on above: Performed By: #### C BC #### [facility] [address] [place] [address] Dr. Ewa Solano MCHC (RBC) [Mass/Vol] 34.5 g/dL Normal 29.9-35.2 [facility] Comment on above: Performed By: #### C BC #### [facility] [address] [place] [address] Dr. Ewa Solano MCV (RBC) [Entitic vol] 84.4 fL Normal 81.0-99.0 [facility] Comment on above: Performed By: #### C BC #### [facility] [address] [place] [address] Dr. Ewa Solano MONO # 0.4 103/ul Normal 0.3-0.8 [facility] Comment on above: Performed By: #### C BC #### [facility] [address] [place] [address] Dr. Ewa Solano Monocytes/100 WBC (Bld) 5.7 % Normal 1.7-12.0 [facility] Comment on above: Performed By: #### C BC #### [facility] [address] [place] [address] Dr. Ewa Solano NEUT # 4.4 103/ul Normal 1.4-6.5 [facility] Comment on above: Performed By: #### C BC #### [facility] [address] [place] [address] Dr. Ewa Solano Neutrophils/100 WBC (Bld) 62.9 % Normal 43.0-75.0 [facility] Comment on above: Performed By: #### C BC #### [facility] [address] [place] [address] Dr. Ewa Solano Platelet mean volume (Bld) [Entitic vol] 10.7 fL Normal 9.5-13.5 [facility] Comment on above: Performed By: #### C BC #### [facility] [address] [place] [address] Dr. Ewa Solano PLT 275 103/ul Normal 150-450 [facility] Comment on above: Performed By: #### C BC #### [facility] [address] [place] [address] Dr. Ewa Solano RBC 5.57 106/ul Critically high 4.20-5.40 [facility] Comment on above: Performed By: #### C BC #### [facility] [address] [place] [address] Dr. Ewa Solano WBC 7.0 103/ul Normal 4.0-11.0 [facility] Comment on above: Performed By: #### C BC #### [facility] [address] [place] [address] Dr. Ewa Solano Covid-19 PCR (CVDTB)on SARS-CoV-2 (COVID-19) RNA DOMINIC+probe Ql (Unsp spec) Detected Critically abnormal NOT DETECTED [facility] Comment on above: Result Comment: This test is not yet approved or cleared by the [place] FDA. When there are no FDA-approved or cleared tests available, and other criteria are met, FDA can make tests available under an emergency access mechanism called an Emergency Use Authorization (EUA). The EUA for this test is supported by the [place] of Health and Human Service's (HHS's) declaration [...] used). Performed By: #### C VDTB #### [facility] [address] [place] [address] Dr. Ewa Solano ER URINE PROFILEon 2 Bilirubin Ql (U) Negative Normal NEGATIVE [facility] Comment on above: Performed By: #### U MICRO, ERUR #### [facility] [address] [place] [address] Dr. Ewa Solano Clarity (U) CLEAR Normal CLEAR [facility] Comment on above: Performed By: #### U MICRO, ERUR #### [facility] [address] [place] [address] Dr. Ewa Solano Color (U) YELLOW Normal YELLOW [facility] Comment on above: Performed By: #### U MICRO, ERUR #### [facility] [address] [place] [address] Dr. Ewa Solano ERUAHD A micrscopic examination will be performed if indicated. Normal [facility] Comment on above: Performed By: #### U MICRO, ERUR #### [facility] [address] [place] [address] Dr. Ewa Solano Glucose Ql (U) Negative Normal NEGATIVE [facility] Comment on above: Performed By: #### U MICRO, ERUR #### [facility] [address] [place] [address] Dr. Ewa Solano Hemoglobin Ql (U) Negative Normal NEGATIVE [facility] Comment on above: Performed By: #### U MICRO, ERUR #### [facility] [address] [place] [address] Dr. Ewa Solano Ketones Ql (U) TRACE Abnormal NEGATIVE [facility] Comment on above: Performed By: #### U MICRO, ERUR #### [facility] [address] [place] [address] Dr. Ewa Solano LEUKOCYTES TRACE Abnormal NEGATIVE [facility] Comment on above: Performed By: #### U MICRO, ERUR #### [facility] [address] [place] [address] Dr. Ewa Solano Nitrite Ql (U) Negative Normal NEGATIVE [facility] Comment on above: Performed By: #### U MICRO, ERUR #### [facility] [address] [address] [address] Ewa Solano pH (U) 6.0 [pH] Normal 5-9 [facility] Comment on above: Performed By: #### U MICRO, ERUR #### [facility] [address] [place] [address] Dr. Ewa Solano SPEC GRAVITY 1.025 Normal 1.005-<=1.025 [facility] Comment on above: Performed By: #### U MICRO, ERUR #### [facility] [address] [place] [address] Dr. Ewa Solano UA PROTEIN Negative Normal NEGATIVE/ TRACE [facility] Comment on above: Performed By: #### U MICRO, ERUR #### [facility] [address] [place] [address] Dr. Ewa Solano UR MICRO IND INDICATED Normal [facility] Comment on above: Performed By: #### U MICRO, ERUR #### [facility] [address] [place] [address] Dr. Ewa Solano Urobilinogen Qn (U) 0.2 {Vannessa'U}/dL Normal 0.2 - 1. 0 [facility] Comment on above: Performed By: #### U MICRO, ERUR #### [facility] [address] [place] [address] Dr. Ewa Solano PROF 14(COMP METB)on 022 Albumin [Mass/Vol] 4.1 g/dL Normal 3.5-5.0 [facility] Comment on above: Performed By: #### C MP #### [facility] [address] [place] [address] Dr. Ewa Solano Albumin/Globulin [Mass ratio] 1.1 {ratio} Normal [facility] Comment on above: Performed By: #### C MP #### [facility] [address] [address] [address] Ewa Solano ALP [Catalytic activity/Vol] 113 U/L Normal 38-126 [facility] Comment on above: Performed By: #### C MP #### [facility] [address] [address] [address] Ewa Solano ALT [Catalytic activity/Vol] 43 U/L Normal 9-52 [facility] Comment on above: Performed By: #### C MP #### [facility] [address] [place] [address] Dr. Ewa Solano Anion gap [Moles/Vol] 13.3 mmol/L Normal [facility] Comment on above: Performed By: #### C MP #### [facility] [address] [place] [address] Dr. Ewa Solano AST [Catalytic activity/Vol] 22 U/L Normal 14-36 [facility] Comment on above: Performed By: #### C MP #### [facility] [address] [place] [address] Dr. Ewa Solano Bilirubin [Mass/Vol] 0.5 mg/dL Normal 0.2-1.3 [facility] Comment on above: Performed By: #### C MP #### [facility] [address] [place] [address] Dr. Ewa Solano Calcium [Mass/Vol] 9.6 mg/dL Normal 8.4-10.2 [facility] Comment on above: Performed By: #### C MP #### [facility] [address] [place] [address] Dr. Ewa Solano Chloride [Moles/Vol] 104 mmol/L Normal 98-107 [facility] Comment on above: Performed By: #### C MP #### [facility] [address] [place] [address] Dr. Ewa Solano CO2 [Moles/Vol] 27.2 mmol/L Normal 22.0-30.0 [facility] Comment on above: Performed By: #### C MP #### [facility] [address] [address] [address] Ewa Solano Creatinine [Mass/Vol] 0.78 mg/dL Normal 0.52-1.04 [facility] Comment on above: Performed By: #### C MP #### [facility] [address] [address] [address] Ewa Solano EGFR-AF MONTENEGRIN >60 Normal >=60 [facility] Comment on above: Performed By: #### C MP #### [facility] [address] [address] [address] Ewa Solano EGFR-NON AF MONTENEGRIN >60 Normal >=60 [facility] Comment on above: Performed By: #### C MP #### [facility] [address] [place] [address] Dr. Ewa Solano Globulin (S) [Mass/Vol] 3.6 g/dL Normal [facility] Comment on above: Performed By: #### C MP #### [facility] [address] [place] [address] Dr. Ewa Solano Glucose [Mass/Vol] 98 mg/dL Normal 74-106 [facility] Comment on above: Performed By: #### C MP #### [facility] [address] [place] [address] Dr. Ewa Solano Potassium [Moles/Vol] 3.5 mmol/L Normal 3.4-5.0 [facility] Comment on above: Performed By: #### C MP #### [facility] [address] [address] [address] Ewa Solano Protein [Mass/Vol] 7.7 g/dL Normal 6.1-8.2 [facility] Comment on above: Performed By: #### C MP #### [facility] [address] [place] [address] Dr. Ewa Solano Sodium [Moles/Vol] 141 mmol/L Normal 137-145 [facility] Comment on above: Performed By: #### C MP #### [facility] [address] [place] [address] Dr. Ewa Solano Urea nitrogen [Mass/Vol] 15.0 mg/dL Normal 7.0-17.0 [facility] Comment on above: Performed By: #### C MP #### [facility] [address] [place] [address] Dr. Ewa Solano Urea nitrogen/Creatinine [Mass ratio] 19.2 mg/mg Normal [facility] Comment on above: Performed By: #### C MP #### [facility] [address] [place] [address] Dr. Ewa Solano URINE MICROSCOPIC ONLYon BACTERIA TRACE Abnormal NONE SEEN [facility] Comment on above: Performed By: #### U MICRO, ERUR #### [facility] [address] [place] [address] Dr. Ewa Solano Bacteria identified Cx Nom (U) INDICATED Normal [facility] Comment on above: Performed By: #### U MICRO, ERUR #### [facility] [address] [place] [address] Dr. Ewa Solano CAST NONE SEEN Normal NONE SEEN [facility] Comment on above: Performed By: #### U MICRO, ERUR #### [facility] [address] [place] [address] Dr. Ewa Solano Crystals LM Nom (Urine sed) NONE SEEN Normal NONE SEEN [facility] Comment on above: Performed By: #### U MICRO, ERUR #### [facility] [address] [place] [address] Dr. Ewa Solano Epithelial cells LM Ql (Urine sed) FEW Abnormal NONE SEEN /RARE [facility] Comment on above: Performed By: #### U MICRO, ERUR #### [facility] [address] [place] [address] Dr. Ewa Solano MUCOUS SMALL Abnormal NONE SEEN [facility] Comment on above: Performed By: #### U MICRO, ERUR #### [facility] [address] [place] [address] Dr. Ewa Solano RBC NONE SEEN Abnormal 0-2 [facility] Comment on above: Performed By: #### U MICRO, ERUR #### [facility] [address] [address] [address] Ewa Solano WBC 5-10 Abnormal NONE SEEN [facility] Comment on above: Performed By: #### U MICRO, ERUR #### [facility] [address] [address] [address] Ewa Solano XR hand RT min 3V*on 021 XR hand RT min 3V* [facility] [address] [place] [address] XRay Report Signed Patient: Sara Sandoval MR#: [id number] 2 : 1970 Acct:[id number] Age/Sex: 50 / F ADM Date: 10/12/20 [place] [facility] [place] Type: [facility] Attending Dr: Meka Queen MD Ordering Provider: [...] Rick Vu M.D.10/12/2020 3:42 PM Dictation Location: [place] [address] Transcribed By: [facility] 10/12/20 154 Dictated By: Rick Vu II, MD 10/12/20 154 Signed By: 10/12/20 154 [facility] Vital Signs Date Time Vital Sign Value Performing Clinician Esdras lozada 09-03-2024 09:50-0400 Body height 170.2 cm [facility] 09-03-2024 09:50-0400 Body mass index (BMI) [Ratio] 29.91 kg/m2 Tara Smith MD Work Phone: [facility] [employer] [facility] 09-03-2024 09:50-0400 Body weight 86.64 kg Tara Smith MD Work Phone: [facility] [employer] [facility] 09-03-2024 09:50-0400 Diastolic blood pressure 52 mm[Hg] Tara Smith MD Work Phone: [facility] [employer] [facility] 09-03-2024 09:50-0400 Respiratory rate 18 /min Tara Smith MD Work Phone: [facility] [employer] [facility] 09-03-2024 09:50-0400 Systolic blood pressure 99 mm[Hg] Tara Smith MD Work Phone: [facility] [employer] [facility] 03-11-2024 12:51-0400 Body height 170.2 cm Tara Smith MD Work Phone: [facility] [employer] [facility] 03-11-2024 12:51-0400 Body mass index (BMI) [Ratio] 27.4 kg/m2 Tara Smith MD Work Phone: [facility] [employer] [facility] 03-11-2024 12:51-0400 Body weight 79.38 kg Tara Smith MD Work Phone: [facility] [employer] [facility] 03-11-2024 12:51-0400 Diastolic blood pressure 74 mm[Hg] Tara Smith MD Work Phone: [facility] [employer] [facility] 03-11-2024 12:51-0400 Respiratory rate 18 /min Tara Smith MD Work Phone: [facility] 03-11-2024 12:51-0400 Systolic blood pressure 122 mm[Hg] Tara Smith MD Work Phone: [facility] [employer] [facility] 03-05-2024 09:20-0400 Body height 170.2 cm Tara Smith MD Work Phone: [facility] [employer] 03-05-2024 09:20-0400 Body mass index (BMI) [Ratio] 27.4 kg/m2 Tara Smith MD Work Phone: [facility] [employer] [facility] 03-05-2024 09:20-0400 Body weight 79.38 kg Tara Smith MD Work Phone: [facility] [employer] [facility] 03-05-2024 09:20-0400 Diastolic blood pressure 58 mm[Hg] Tara Smith MD Work Phone: [facility] [employer] [facility] 03-05-2024 09:20-0400 Respiratory rate 18 /min Tara Smith MD Work Phone: [facility] [employer] 03-05-2024 09:20-0400 Systolic blood pressure 106 mm[Hg] Tara Smith MD Work Phone: [facility] [employer] [facility] 08-27-2023 09:48-0400 Body height 170.2 cm Tara Smith MD Work Phone: [facility] [employer] [facility] 08-27-2023 09:48-0400 Body mass index (BMI) [Ratio] 25.84 kg/m2 Tara Smith MD Work Phone: [facility] [employer] 08-27-2023 09:48-0400 Body weight 74.84 kg Tara Smith MD Work Phone: [facility] [employer] [facility] 08-27-2023 09:48-0400 Diastolic blood pressure 62 mm[Hg] Tara Smith MD Work Phone: [facility] [employer] [facility] 08-27-2023 09:48-0400 Respiratory rate 18 /min Tara Smith MD Work Phone: [facility] [employer] [facility] 08-27-2023 09:48-0400 Systolic blood pressure 110 mm[Hg] Tara Smith MD Work Phone: [facility] Encounters Encounter Date Encounter Type Care Provider Facility Start: 12-12-2024 End: 12-12-2024 Emergency department patient visit [facility] Start: 09-03-2024 End: 09-03-2024 [facility] Start: 09-03-2024 End: 09-03-2024 Office outpatient visit 25 minutes Tara Smith MD Work Phone: [facility] Comment on above: Greater trochanteric bursitis of right hip (Primary Dx); Fibromyalgia; Osteoarthritis of right AC (acromioclavicular) joint Start: 08-31-2024 End: 08-31-2024 [facility] Start: 08-11-2024 End: 08-11-2024 Emergency department patient visit [facility] Start: 03-11-2024 End: 03-11-2024 Patient encounter procedure Tara Smith MD Work Phone: [facility] Comment on above: Greater trochanteric bursitis of right hip (Primary Dx); Osteoarthritis of right AC (acromioclavicular) joint Start: 03-11-2024 End: 03-11-2024 [facility] Start: 03-05-2024 End: 03-05-2024 Office outpatient visit 25 minutes Tara Smith MD Work Phone: [facility] Comment on above: Fibromyalgia Start: 03-05-2024 End: 03-05-2024 ambulatory [facility] Start: 03-02-2024 End: 03-02-2024 Telephone [...] Start: 08-27-2023 End: 08-27-2023 ambulatory TARA SMITH [facility] Start: 08-19-2023 End: 08-19-2023 ambulatory LAURI PHILIPPE Not Available Start: 05-29-2022 End: 05-29-[address] LANI PEACOCK Facility:[facility] Start: 07-02-2021 End: 07-02-[address] LANI PEACOCK Facility:[facility] Procedures Date Procedure Procedure Detail Performing Clinician Start: 09-05-2020 Colonoscopy Tara ashley MD Work Phone: Plan of Treatment Date Care Activity Detail Author Start: 09-05-2030 Screening for malignant neoplasm of colon Colonoscopy [facility] Start: 03-01-2027 DTaP,Tdap and Td Vaccines (2 - Td or Tdap) DTaP,Tdap and Td Vaccines (2 - Td or Tdap) [facility] Start: 08-11-2025 Adult BMI Screening Adult BMI Screening [facility] Start: 08-11-2025 Tobacco Screening Tobacco Screening [facility] Start: 03-11-2025 Adult BMI Screening Adult BMI Screening [facility] Start: 03-05-2025 Adult BMI Screening Adult BMI Screening [facility] Start: 03-05-2025 Tobacco Screening Tobacco Screening [facility] Start: 03-04-2025 End: 03-04-2025 Patient encounter procedure 03/04/2025 11:30 AM EDT Office Visit [facility] [address] [place] [address] Tara Smith MD [address] [address] [facility] Start: 01-25-2025 Influenza vaccination Influenza Vaccine [facility] Start: 09-03-2024 End: 09-03-2024 Patient encounter procedure 09/03/2024 10:00 AM EDT Office Visit [facility] [address] [place] [address] Tara Smith MD [address] [address] [facility] Start: 08-26-2024 Adult BMI Screening Adult BMI Screening [facility] Start: 03-11-2024 End: 03-11-2024 Patient encounter procedure 03/11/2024 1:00 PM EDT Procedure visit [facility] [address] [address] Tara Smith MD [address] [address] [facility] Start: 03-05-2024 End: 03-05-2024 Patient encounter procedure 03/05/2024 9:15 AM EDT Office Visit [facility] [address] [facility] [address] [place] [address] Tara Smith MD [address] [address] [facility] Start: 01-26-2024 Influenza vaccination Influenza Vaccine [facility] Start: 09-22-2023 Tobacco Screening Tobacco Screening [facility] Start: 2020 Administration of varicella zoster vaccine Zoster (Shingles) Vaccine (1 of 2) [facility] Start: 1988 Adult BMI Follow Up Plan Adult BMI Follow Up Plan [facility] Start: 1982 Depression Screening Depression Screening [facility] Immunizations Immunization Date Immunization Notes Care Provider [facility] 03-23-2024 influenza virus vaccine, unspecified formulation [facility] 04-22-2023 influenza virus vaccine, unspecified formulation Tara Smith MD Work Phone: [facility] Payers Date Payer Category Payer Medicare HUMANA MEDICARE HU[place] MEDIC[place] RES[place] [id number] 2023-Present [phone] [address] [place] [id number] 2023 Medicare O HUMANA MEDICARE [id number] 2023 Medicare [id number] 1970 Unknown [id number] 1970 Unknown [id number] 1970 Unknown [id number] 1970 Unknown [id number] 1970 Unknown [id number] 1970 Unknown [id number] 1970 Unknown [id number] [id number] 1970 Unknown [id number] 1970 Unknown [id number] 1959 Unknown [id number] Social History Date Type Detail Facility Start: 07-08-2021 Tobacco smoking stat [facility] Ex-smoker [facility] History of tobacco use Current smoker [facility] History of tobacco use Cigarette Smoker P [facility] Start: 07-07-2020 End: 07-08-2021 Cigarettes smoked current (pack per day) - Reported 0.5 [facility] Start: 07-08-2021 Tobacco use and exposure Smokeless tobacco non-user [facility] Start: 09-21-2022 End: 08-11-2024 Alcohol intake Current drinker of alcohol (finding) [facility] Start: 07-07-2020 End: 09-21-2022 Tobacco use panel [facility] Childcare Unknown [facility] Start: 09-05-2020 Tobacco Comment quitting smoking [facility] Start: 08-15-2020 Alcohol Comment social [facility] Start: 1970 Sex Assigned At Not on file P [facility] Start: 12-30-2014 Sex Female (finding) [facility] Clinical Notes 08-27-2023 to 09-03-2024 Tara Smith [...] [address] [facility] [id number] Date of Service: 09/03/2024 Subjective: Sara Sandoval [...] seen on March 03, 2019 by a business operations specialist at [facility] referred from PCP with history of swelling of the MCPs and morning stiffness and positive rheumatoid factor, was started on methotrexate for highly suspicious rheumatoid based on history above physical examination by Rheumatology that time did not revealed swelling of joints but mild tender MCPs, last time seen by [facility] business operations specialist was June 26, 2019 that the time since she did not demonstrate evidence of synovitis but she had trochanteric bursitis for which she was given steroid injection Lab tests done at [facility] February 2019 CCP negative, sed [...] mcg total) by mouth in the morning. [id number]-jonm-FA-K-hb#244 18-400-80 mg-mcg-mcg tablet Take by mouth. ondansetron [...] or corrected. Thank you for your understanding. [facility] Rhe[facility] Dr. Tara Smith MD [address] [facility], [address] [place] [address] Office: [phone] Rheumatology Procedure Site: Right trochanteric bursa and right shoulder AC joint Date/Time: 0:08 AM Performed by: Tara Smith Authorized by: aTra Smith Written Consent obtained?: Yes Risks and [...] during the procedure documented in this encounter [facility] 08-31-2024 Miscellaneous Notes Formattin g of this note might be different from the original. Called spoke with Sara advised she is out of network and will be billed for the visit on 09/03 in [place]. Pt understood and was aware. documented in this encounter [facility] 08-31-2024 Telephone encount er Note Called spoke with Sara advised she is out of network and will be billed for the visit on 09/03 in [place]. Pt understood and was aware. [facility] 03-11-2024 History of Presen t illness Narrative [...] during the procedure documented in this encounter [facility] 03-05-2024 History of Presen t illness Narrative Images from the original note were not included. [address] [facility] [address] [facility] [id number] Date of Service: 03/05/2024 Subjective: Sara Sandoval [...] seen on March 03, 2019 by a business operations specialist at [facility] referred from PCP with history of swelling of the MCPs and morning stiffness and positive rheumatoid factor, was started on methotrexate for highly suspicious rheumatoid based on history above physical examination by Rheumatology that time did not revealed swelling of joints but mild tender MCPs, last time seen by [facility] business operations specialist was June 26, 2019 that the time since she did not demonstrate evidence of synovitis but she had trochanteric bursitis for which she was given steroid injection Lab tests done at [facility] February 2019 CCP negative, sed [...] mcg total) by mouth in the morning. [id number]-ebtf-knri-FA-K-hb#244 18-400-80 mg-mcg-mcg tablet Take by mouth. ondansetron [...] patient to come to our office in [place] she has to have it injected Return to clinic 6 months This note was created with the assistance of a speech recognition program. While intending to generate a timely document that accurately reflects the content of the visit, no guarantee can be provided that every grammatical or spelling mistake has been or will be identified or corrected. Thank you for your understanding. [facility] Rhe[address] Dr. Tara Smith MD [address] [place] [address], [address] [place] [address] Office: [phone] documented in this encounter [facility] 03-02-2024 Miscellaneous Notes Formattin g of this note might be different from the original. Appt schedule for 03/05 ([place]) . Courtesy call to patient informed there insurance out of network and will have to pay out of pocket Pt understood. documented in this encounter [facility] 03-02-2024 Telephone encount er Note Appt schedule for 03/05 ([place]) . Courtesy call to patient informed there insurance out of network and will have to pay out of pocket Pt understood. [facility] 04-02-2024 History of Presen t illness Narrative Images from the original note were not included. [address] [id number] Date of Service: 08/27/2023 Subjective: Sara Sandoval [...] seen on March 03, 2019 by a business operations specialist at [facility] referred from PCP with history of swelling of the MCPs and morning stiffness and positive rheumatoid factor, was started on methotrexate for highly suspicious rheumatoid based on history above physical examination by Rheumatology that time did not revealed swelling of joints but mild tender MCPs, last time seen by [facility] business operations specialist was June 26, 2019 that the time since she did not demonstrate evidence of synovitis but she had trochanteric bursitis for which she was given steroid injection Lab tests done at [facility] February 2019 CCP negative, sed [...] mcg total) by mouth in the morning. [id number]-[id number]-K-hb#244 18-400-80 mg-mcg-mcg tablet Take by mouth. ondansetron [...] MISTRY-28 (ESR): -- Tender (MISTRY-28): -- Swollen (IMSTRY-28): -- BP 110/62 Resp 18 Ht 170.2 [...] or corrected. Thank you for your understanding. [facility] [place] [address] [place] [address] [address] [place] [address] Office: [phone] Rheumatology Procedure Site: right trochanteric bursitis and [...] during the procedure documented in this encounter [facility] Evaluation note Diagnosis Greater trochanteric bursitis of right hip- Primary Fibromyalgia Unspecified myalgia and myositis Osteoarthritis of right AC (acromioclavicular) joint documented [facility] this encounter [facility] Diagnosis Fibromyalgia Unspecified myalgia and myositis documented in this encounter [facility] Diagnosis Fibromyalgia Unspecified myalgia and myositis documented in this encounter [facility] Diagnosis Greater trochanteric bursitis of right hip- Primary Osteoarthritis of right AC (acromioclavicular) joint documented in this encounter [facility] this [facility] filedocumented in this encounter [facility] on filedocumented in this encounter [facility] filedocumented in this encounter [facility] Summary Purpose Family History No [...] section and content) DATE CREATED AUTHOR 06/13/2021 [facility] DATE CREATED AUTHOR AUTHOR'S ORGANIZ ATION 05/29/2022 [facility] DATE CREATED AUTHOR AUTHOR'S ORGANIZ ATION 08/19/2023 [facility] EPIC DATE CREATED AUTHOR AUTHOR'S ORGANIZ ATION 02/09/2024 [facility] DATE CREATED AUTHOR AUTHOR'S ORGANIZ ATION 03/13/2024 [facility] DATE CREATED AUTHOR AUTHOR'S ORGANIZ ATION 12/15/2024 [facility] Care Teams (unrecognized sec tion and content) Carburetor Repairer Relationship Specialty Start Date End Date Ashley Mane MD [address] [place], [place] [phone] PCP - General Family Medicine 01/23/22 Carburetor Repairer Relationship Specialty Start Date End Date Ashley Mane MD [address] [place] [phone] PCP - General Family Medicine 01/23/22 Carburetor Repairer Relationship Specialty Start Date End Date Ashley Mane MD [address] [place] [phone] PCP - General Family Medicine 01/23/22 Carburetor Repairer Relationship Specialty Start Date End Date Ashley Mane MD [address] [place], [place] [phone] PCP - General Family Medicine 01/23/22 Carburetor Repairer Relationship Specialty Start Date End Date Ashley Mane MD [address] [place] [phone] PCP - General Family Medicine 01/23/22 Carburetor Repairer Relationship Specialty Start Date End Date Ashley Mane MD [address] [phone] PCP - General Family Medicine 08/11/24 Carburetor Repairer Relationship Specialty Start Date End Date Ashley Mane MD [address] [place] [address] PCP - General Family Medicine 08/11/24 Reason [...] BE BASED ON THE PRIMARY CLINICAL RECORDS. [employer] provides no warranty or guarantee of the accuracy or completeness of information in this document.
[2024-12-31 12:01] LABS: SARS-CoV-2 Ag NEGATIVE (NEGATIVE)
== END 2024-12-31 12:13 | disposition home or self-care (01) ==
PROVIDERS: Emergency Provider Emergency Medicine; PCP Family Medicine
DX: J06.9 Acute upper respiratory infection, unspecified (principal); J02.9 Acute pharyngitis, unspecified; R53.83 Other fatigue
CPT/HCPCS: 87070; 87811; 87880; 99283